=== PATIENT | female | born 1965 | race Caucasian/White ===

== ENCOUNTER 2024-11-30 12:44 | Inpatient (IN) | payer MEDICARE, MEDICAID, SELFPAY ==
[2024-11-30] VITALS (9 sets, daily range): BP systolic 93–126; BP diastolic 50–74; PULSE 92–112; RESP 19–79; TEMP 36.9–39.1; O2SAT 61–99; BMI 21.7; BMI 23.1
--- NOTE | 2024-11-30 13:03 | PD.EDAMS ---
Altered Mental Status RME/HPI General Chief Complaint: Altered Mental Status Stated Complaint: AMS Time Seen by Provider: 11/30/24 13:06 Arrival date/time: 11/30/24 12:44 Limitations: no limitations RME / HPI RME / HPI narrative: DR. ROGEL MAIN ED EVALUATION: 58-year-old female with a history of diabetes and thyroid disease presents to the Emergency Department with complaint of 2 to 3-day history of altered mental status. Patient has history of left sided weakness which is not new and has not gotten worsen. The patient was started on a Z-Blake and promethazine for cough and her oxygen today was slightly low. Per EMS the patient had low O2 sat and route around 60% Patient normally can open her eyes. The history is been taken from the para operator and commander internal affairs of the house. MD complaint: altered mental status Onset (ago): day(s) (3) Timing confirmed by: caregiver and other Consistency of symptoms: waxing and waning Context: other (Patient having flulike symptoms 1 week ago.) Associated symptoms: cough, malaise, nausea/vomiting and weakness Treatments prior to arrival: other (Z-Blake a week ago) Related Data Home Medications ?Medication ?Instructions ?Recorded ?Confirmed ASPIRIN (ASA 81MG EC) 81 mg PO DAILY ##0 11/12/13 10/28/23 divalproex 250 mg tablet,delayed 250 mg PO BID #0 tabs 11/12/13 10/28/23 release (Depakote) docusate sodium 250 mg capsule 250 mg PO QDAY ##0 11/12/13 10/28/23 (DSS) oxybutynin chloride 5 mg tablet 5 mg PO QDAY ##0 11/12/13 10/28/23 potassium chloride 8 mEq 8 meq PO QDAY #0 tabs 11/12/13 10/28/23 tablet,extended release (Klor-Con) lactulose 10 gram/15 mL oral 30 gm PO TID PRN CONSTIPATION 30 11/15/13 10/28/23 solution (Enulose) days ##0 polyethylene glycol 3350 17 gram 1 pkt PO QDAY ##0 02/17/17 10/28/23 oral powder packet (Miralax) cholecalciferol (vitamin D3) 50 50 mcg PO QDAY 10/28/23 10/28/23 mcg (2,000 unit) capsule (Vitamin D3) diclofenac sodium 1 % topical gel 1 ea topical QDAY 10/28/23 10/28/23 docusate sodium 100 mg capsule 100 mg PO QDAY 10/28/23 10/28/23 lactulose 10 gram/15 mL oral 15 ml PO QDAY 10/28/23 10/28/23 solution levothyroxine 88 mcg tablet 88 mcg PO QDAY 10/28/23 10/28/23 lithium carbonate 300 mg capsule 300 mg PO QDAY 10/28/23 10/28/23 metformin 500 mg tablet 500 mg PO QDAY 10/28/23 10/28/23 Allergies Allergy/AdvReac Type Severity Reaction Status Date / Time tetracycline Allergy Unknown Verified 10/28/23 12:52 ibuprofen AdvReac Unknown Verified 10/28/23 12:52 Review of Systems Review of Systems ROS Unobtainable: unobtainable due to medical condition (See HPI) Past Medical History Past Medical History NEUROLOGIC: Positive Neurological Disorders (developmental delay); Negative Seizures CARDIAC: Negative Congestive Heart Failure RESPIRATORY: Negative Chronic Obstructive Pulmonary Disease (COPD) GASTROINTESTINAL: Positive Gastrointestinal Disorders (severe constipation) GENITOURINARY: Negative Genitourinary Disorders or Renal Disease MUSCULOSKELETAL: Positive Musculoskeletal Disorders (defomity of lower extremities) ENDOCRINE: Positive Hypothyroidism; Negative Diabetes Mellitus Type 1 or Diabetes Mellitus Type 2 HEMATOLOGIC: Negative Blood Disorders OTHER HISTORY: Positive Developmental Delay; Negative Blood Transfusions, Anesthesia Reactions or Cancer Social History SMOKING STATUS: Unknown if ever smoked SUBSTANCE USE: does not use ALCOHOL: Never ED Exam Narrative Physical exam: Patient lying in the bed, appears ill General Limitations: Present no limitations General appearance: Present alert and other (Response to deep stimuli) Head Head exam: Present atraumatic, normocephalic and normal inspection Eye Eye exam: Present normal appearance and EOMI; Absent scleral icterus ENT ENT exam: Present normal exam and normal oropharynx Neck Neck exam: Present normal inspection, full ROM and trachea midline Respiratory Respiratory exam: Present other Abdominal Exam Abdominal exam: Present soft; Absent distention, tenderness or guarding Abdominal tenderness: Absent diffuse Extremities Exam Extremities exam: Present other (No mottling.) Neurological Exam Neurological exam: Present other (Alert to self) Skin Skin exam: Present warm and diaphoresis; Absent rash or cyanosis Course Quality Measures none Orders Category Date Time Status Bedside COVID-19 Antigen Test NOW Care 11/30/24 15:13 Active Bedside Influenza A&B Antigen Test NOW Care 11/30/24 15:13 Completed COVID-19 Screening Questionnaire NOW Care 11/30/24 16:05 Active Living Supervisor STAT Care 11/30/24 13:09 Active Continuous Pulse Oximetry STAT Care 11/30/24 13:09 Completed Decision to Admit X1 Care 11/30/24 16:05 Completed EKG (ED ONLY) *Do not use* NOW Care 11/30/24 13:09 Completed In and Out Catheter X1PRN Care 11/30/24 13:09 Completed Insert IV NOW Care 11/30/24 13:09 Active NPO STAT Care 11/30/24 13:09 Active Strict Intake and Output Routine Care 11/30/24 13:[address] head/brain wo con Stat Exams 11/30/24 13:08 Completed EKG (ED Only) Stat Exams 11/30/24 13:09 Draft XR chest 1V SEPSIS PROTOCOL Stat Exams 11/30/24 13:10 Completed B-Type Natriuretic Peptide Stat Lab 11/30/24 13:08 Completed Blood Culture (Lab) Stat Lab 11/30/24 13:08 Received CBC Stat Lab 11/30/24 13:08 Completed Comprehensive Metabolic Panel Stat Lab 11/30/24 13:08 Completed LDH (Lactate Dehydrogenase) Stat Lab 11/30/24 13:08 Completed Lactate (Lactic Acid) Stat Lab 11/30/24 13:08 Completed Lipase Stat Lab 11/30/24 13:08 Completed Magnesium Stat Lab 11/30/24 13:08 Completed Partial Thromboplastin Time Stat Lab 11/30/24 13:08 Completed Phosphorous Stat Lab 11/30/24 13:08 Completed Procalcitonin Stat Lab 11/30/24 13:08 Completed Prothrombin Time with INR Stat Lab 11/30/24 13:08 Completed Troponin I Stat Lab 11/30/24 13:08 Completed Urinalysis Stat Lab 11/30/24 14:20 Completed Urine Culture Stat Lab 11/30/24 14:20 Received ACETAMINOPHEN 120mg SUPP [Tylenol Supp] Med 11/30/24 13:30 Discontinued 650 mg OK X1 ONE Acetaminophen Supp [Tylenol Supp] Med 11/30/24 13:38 Discontinued 650 mg OK X1 ONE Acetaminophen Tab [Tylenol Tab] Med 11/30/24 13:11 Discontinued 650 mg PO X1 ONE Ondansetron Inj [Zofran Inj] Med 11/30/24 13:08 Active 4 mg IV Q6HR PRN Piper/Tazo 3.375 gm [Zosyn] Med 11/30/24 13:08 Discontinued 3.375 gm in 50 ml IV X1 Sodium Chloride 0.9% 1000 ml [Ns] 1,503 ml Med 11/30/24 13:08 Discontinued IV 1,503 mls/hr Oxygen Delivery NOW RT 11/30/24 13:09 Active Vital Signs Vital signs: Vital Signs Temperature 102.3 F H 11/30/24 12:56 Pulse Rate 112 H 11/30/24 12:56 Respiratory Rate 34 H 11/30/24 12:56 Blood Pressure 126/50 L 11/30/24 12:56 Pulse Oximetry (%) 79 L 11/30/24 12:56 Oxygen Delivery Method Room Air 11/30/24 12:56 Procedures -ED EKG Interpretation #1: Date of EK11/30/24 Time of EK:46 Rate: 110 Interpretation: Interpreted by me Additional EKG comment: sinus tachycardia, rate 110, nonspecific ST-T changes, QTc 415 Altered Mental Status MDM Narrative MDM Narrative:: Differential diagnosis includes sepsis, dehydration, electrolyte abnormality, acute or subacute stroke, influenza, viral syndrome, acute on chronic bacterial infection, Depakote elevation. With DKA. UTI. Chest x-ray is obtained for fever and altered mental status. Stephania Carpetner, am scribing for and in the presence of Dr. Rogel. Patient data External records reviewed:: [facility] previous records (Reviewed note by Dr. Curry dated 10/28/23.) Clinical information provided by:: patient Social determinants that could affect healthcare access:: none Patient has the following chronic illnesses:: diabetes and thyroid disease How is presenting disease/condition affected by chronic disease/condition?: exacerbated by Evaluation data The following diagnostics were reviewed and interpreted by me:: lab results, radiology exam(s) and EKG tracing(s) Lab and/or radiology exams considered but not ordered:: none Interpretation Summary: Procedure(s): CT head/brain wo con Accession Number(s): [id number] cc: Brock Oliva MD; Mariaa Rogel MD~ Examination: CT brain head without contrast. 2-D sagittal coronal reconstructions Date and time of exam:November 30, 2024 1436 hours INDICATIONS: Altered mental status beginning 3 days ago CTDI: vol (mGy):47.4 DLP: (mGycm):957 Technique: Multiple CT axial sections of the brain have been obtained, 5 mm slice thickness. Contrast has not been administered. 2-D sagittal, coronal reconstructions have been obtained Low dose protocols were performed. One or more of the following dose reduction techniques were used; automated exposure control, adjustment of the mA and/or KV according to patient size, use of iterative reconstruction technique. Findings: Moderate ventricular enlargement. Intra-axial or extra-axial hemorrhage density is not seen. No mass effect or midline shift Basal cisterns are not remarkable. Fourth ventricle is midline. Cranial vault intact. Significant maxillary ethmoid sinusitis Impression: Negative for acute hemorrhage, mass effect or midline shift Advise clinical correlation and follow-up accordingly. Dictated By: Brock Oliva MD Procedure(s): XR chest 1V SEPSIS PROTOCOL Accession Number(s): [id number] cc: Brock Oliva MD; Mariaa Rogel MD~ Examination: AP chest single view TECHNIQUE: AP portable semiupright chest single view Exam date and time: 13/04/2025 1355 hours INDICATIONS: Sepsis protocol FINDINGS: Significant left perihilar pneumonia Normal heart size Right lung clear IMPRESSION: Significant left perihilar pneumonia Dictated By: Brock Oliva MD Medications / Prescriptions Medications or Prescriptions considered but not ordered:: none Medication administrations:: Medication Administration History Acetaminophen (Acetaminophen 325 Mg Tablet) 1,000 mg PO Q6H PRN PRN Reason: PAIN SCALE 1-3 (mild Stop: 12/30/24 16:44 Aspirin (Aspirin Ec 81 Mg Tabec) 81 mg PO QDAY SINA Stop: 12/31/24 08:59 Dextrose (Dextrose 50%-Water Inj 50 Ml Syringe) 25 ml IV Q15MIN PRN PRN Reason: BG 50-70 responsive npo pt Stop: 12/30/24 17:20 Dextrose (Dextrose 50%-Water Inj 50 Ml Syringe) 50 ml IV Q15MIN PRN PRN Reason: BG <50 OR BG <70 & pt unresponsive Stop: 12/30/24 17:20 Dextrose (Dextrose 50%-Water Inj 50 Ml Syringe) 25 ml IV Q15MIN PRN PRN Reason: BG 50-70 responsive npo pt Stop: 12/30/24 17:36 Dextrose (Dextrose 50%-Water Inj 50 Ml Syringe) 50 ml IV Q15MIN PRN PRN Reason: BG <50 OR BG <70 & pt unresponsive Stop: 12/30/24 17:36 Divalproex Sodium (Divalproex Sod Er 250 Mg Ashley (Non-Formulary)) 1,500 mg PO HS SINA Stop: 12/30/24 20:59 Docusate Sodium (Docusate Sod 100 Mg Capsule) 100 mg PO QDAY SINA; Protocol Stop: 12/31/24 08:59 Glucagon (Glucagon Inj 1 Mg Vial) 1 mg IM Q15MIN PRN PRN Reason: BG <70, and no IV access Glucagon (Glucagon Inj 1 Mg Vial) 1 mg IM Q15MIN PRN PRN Reason: BG <70, and no IV access Guaifenesin/Dextromethorphan (Guaifenesin/Dm Tablet) 1 each PO QDAY SINA Stop: 12/31/24 08:59 Heparin Sodium (Porcine) (Heparin Sod Inj 5000 Unit/Ml Vial) 5,000 unit SC Q12H SINA Stop: 12/14/24 16:44 Ceftriaxone Sodium/Dextrose (Rocephin/D5w 1gm Iv Premix) 50 mls @ 100 mls/hr IV QDAY SINA Stop: 12/07/24 16:59 Last Admin: 11/30/24 17:45 Dose: 100 mls/hr Documented By: JOSIE Azithromycin 250 mg/ Sodium (Chloride) 250 mls @ 250 mls/hr IV QDAY SINA Stop: 12/07/24 16:59 Azithromycin 250 mg/ Sodium (Chloride) 250 mls @ 250 mls/hr IV X1 ONE Stop: 11/30/24 18:14 Insulin Human Lispro (Insulin Lispro (Admelog) 1 Unit/0.01 Ml Unit) 0 unit SC [facility]; Protocol Stop: 12/31/24 07:29 Insulin Human Lispro (Insulin Lispro (Admelog) 1 Unit/0.01 Ml Unit) 0 unit SC [facility]; Protocol Stop: 12/31/24 07:29 Lactulose (Lactulose Syrup 20 Gm/30 Ml Udc) 10 gm PO QDAY [facility]; Protocol Stop: 12/31/24 08:59 Levothyroxine Sodium (Levothyroxine Sodium 88 Mcg Tablet) [facility] Stop: 12/31/24 05:59 Tula Carbonate (Tula Carb 150 Mg Capsule) 300 mg PO [facility] Stop: 12/30/24 20:59 Ondansetron HCl (Ondansetron Inj 2 Mg/Ml Inj 2 Ml) 4 mg IV Q6HR PRN PRN Reason: NAUSEA OR VOMITING Stop: 12/30/24 13:07 Oseltamivir Phosphate (Oseltamivir 75 Mg Capsule) 75 mg PO QDAY SINA Stop: 12/07/24 16:59 Last Admin: 11/30/24 17:39 Dose: 75 mg Documented By: JOSIE Oxybutynin Chloride (Oxybutynin Chlor 5 Mg Tablet) 5 mg PO QDAY SINA Stop: 12/31/24 08:59 Polyethylene Glycol (Polyethylene Glycol 17 Gm Packet) 17 gm PO QDAY SINA Stop: 12/31/24 08:59 Sennosides (Senna Tablet) 1 tab PO QDAY [facility]INA; Protocol Stop: 12/31/24 08:59 Discontinued Medications Acetaminophen (Acetaminophen 325 Mg Tablet) 650 mg PO X1 ONE Stop: 11/30/24 13:12 Last Admin: 11/30/24 13:40 Dose: Not Given Documented By: JOSIE Non-Admin Reason: Cancelled by Provider Acetaminophen (Acetaminophen 120 Mg Supp) 650 mg OK X1 ONE Stop: 11/30/24 13:31 Last Admin: 11/30/24 13:40 Dose: Not Given Documented By: JOSIE Non-Admin Reason: Cancelled by Provider Acetaminophen (Acetaminophen Supp 650 Mg Supp) 650 mg OK X1 ONE Stop: 11/30/24 13:39 Last Admin: 11/30/24 13:45 Dose: 650 mg Documented By: JOSIE Comments: MED NOT SCANNING Guaifenesin/Dextromethorphan (Guaifenesin/Dm Tablet) 1 each PO X1 ONE Stop: 11/30/24 16:51 Sodium Chloride (Ns) 1,503 mls @ 1,503 mls/hr 30 ml/kg infuse over 60 min (1503 ml) IV .Q1H ONE Stop: 11/30/24 14:07 Last Infusion: 11/30/24 17:17 Dose: Infused Documented By: Admin: 11/30/24 14:02 Dose: 1,503 mls/hr Documented By: JOSIE Piperacillin/Tazobactam/Dextrose (Zosyn) 3.375 gm in 50 mls @ 100 mls/hr IV X1 ONE Stop: 11/30/24 13:37 Last Infusion: 11/30/24 14:39 Dose: Infused Documented By: Admin: 11/30/24 14:02 Dose: 100 mls/hr Documented By: JOSIE Sodium Chloride (Sodium Chloride Rt 10% 15 Ml Nebu) 5 ml INH X1 ONE Stop: 11/30/24 16:46 see above Consultations Consultation(s) initiated? (list below): Yes Consultation #1 (Physician, Specialty, Details): Discussed test HPI, PMHx, lab, radiology results and/or management with hospitalist. Will admit for further evaluation and management. Accepts patient for admission. Time: 17:30 Diagnosis Differential diagnosis altered mental status: other (sepsis, dehydration, electrolyte abnormality, acute or subacute stroke, influenza, viral syndrome, acute on chronic bacterial infection, Depakote elevation. With DKA. UTI.) Most likely diagnosis given after review of the tests above:: Sepsis, influenza, hypoxia, bilateral pneumonia Admission Indicated Admission indicated?: indicated Admission Request Was there a request for admission?: Yes Admission Attestation Admission request attestation: Discussed case with [] from Hospitalist service regarding admission. Discussed patients ED course, exam findings, labs, and radiology results. The Hospitalist [agrees,declines] to accept the patient for admission. Disposition Plan Disposition Plan: Admit Critical Care Time Critical Care Time Critical Care Time: Yes Total Critical Care Time (min.): 45 Attestation: The high probability of sudden, clinically significant deterioration in the patient?s condition required the highest level of my preparedness to intervene urgently. The services I provided to this patient were to treat and/or prevent clinically significant deterioration. Services included the following: chart data review, reviewing nursing notes and/or old charts, documentation time, financial analysis consultant collaboration regarding findings and treatment options, medication orders and management, direct patient care, vital sign assessments and ordering, interpreting and reviewing diagnostic studies and lab tests. Aggregate critical care time includes only time during which I was engaged in work directly related to the patient?s care, as described above, whether at bedside or elsewhere in the Emergency Department. It did not include time spent performing other reported procedures or the services of residents, students, nurses or physician assistants. Discharge Plan Plan Patient Disposition: Admit Acute Care w/in Hospital Patient condition on transfer: Stable Problem List Clinical Impression: Sepsis, Influenza, Hypoxia, Bilateral pneumonia
--- NOTE | 2024-11-30 13:08 | XR_ITS ---
Examination: CT brain head without contrast. 2-D sagittal coronal reconstructions Date and time of exam:November 30, 2024 1436 hours INDICATIONS: Altered mental status beginning 3 days ago CTDI: vol (mGy):47.4 DLP: (mGycm):957 Technique: Multiple CT axial sections of the brain have been obtained, 5 mm slice thickness. Contrast has not been administered. 2-D sagittal, coronal reconstructions have been obtained Low dose protocols were performed. One or more of the following dose reduction techniques were used; automated exposure control, adjustment of the mA and/or KV according to patient size, use of iterative reconstruction technique. Findings: Moderate ventricular enlargement. Intra-axial or extra-axial hemorrhage density is not seen. No mass effect or midline shift Basal cisterns are not remarkable. Fourth ventricle is midline. Cranial vault intact. Significant maxillary ethmoid sinusitis Impression: Negative for acute hemorrhage, mass effect or midline shift Advise clinical correlation and follow-up accordingly.
--- NOTE | 2024-11-30 13:09 | EKG_ITS ---
[facility] Test Date: 2024-11-30 Pat Name: PAYAL LATHAM Department: Room: - Gender: Female Leave Coordinator: : 1965 Requested By: Mariaa Crawford Order Number: [id number] Reading MD: Mariaa Crawford Measurements Intervals [place] Rate: 110 P: 60 VT: 167 QRS: 78 QRSD: 84 T: -36 QT: 306 QTc: 415 Interpretive Statements SINUS TACHYCARDIA NONSPECIFIC ST & T-WAVE ABNORMALITY No previous ECG available for comparison /store/S0/[id number]/ecg/[id number].pdf
--- NOTE | 2024-11-30 13:10 | XR_ITS ---
Examination: AP chest single view TECHNIQUE: AP portable semiupright chest single view Exam date and time: 13/04/2025 1355 hours INDICATIONS: Sepsis protocol FINDINGS: Significant left perihilar pneumonia Normal heart size Right lung clear IMPRESSION: Significant left perihilar pneumonia
[2024-11-30 13:28] LABS: Lactate (Lactic Acid) 1.7 mMol/L (0.4-2.0)
[2024-11-30 13:30] LABS: Basophils % (Auto) 0 % (0-2.5); Eosinophils % (Auto) 0 % (0-10); Hematocrit 37.9 % (36.0-46.0); Immature Granulocytes % (Auto) 1 % (0-0); Immature Granulocytes Auto 0.06 Thou/mm3 (0.00-0.00); Lymphocytes % (Auto) 12 % (10-50); Mean Corpuscular HGB Conc 34.3 g/dl (31.0-37.0); Mean Corpuscular Hemoglobin 29.1 pg (25.0-35.0); Mean Corpuscular Volume 85 fL (80-100); Monocytes # (Auto) 0.9 Thou/mm3 (0.0-0.8); Monocytes % (Auto) 11 % (0-12); Neutrophils # (Auto) 6.4 Thou/mm3 (1.8-7.7); Neutrophils % (Auto) 76 % (37-80); Nucleated Red Blood Cell % 0 /100 WBC (0); Platelet Count 87 Thou/mm3 (140-440); RDW Standard Deviation 40.8 fL (36.4-46.3); Red Blood Count 4.46 Miln/mm3 (4.00-5.20); White Blood Count 8.4 Thou/mm3 (3.6-11.0)
[2024-11-30 13:43] LABS: INR 1.2 (0.9-1.3); Partial Thromboplastin Time 27.6 Seconds (22.0-36.0); Prothrombin Time 13.3 Seconds (9.0-12.2)
[2024-11-30] MEDS: ACETAMINOPHEN SUPP 650 MG SUPP PR (13:45)
[2024-11-30 13:48] LABS: B-Type Natriuretic Peptide 42 pg/mL (0-100)
[2024-11-30 13:56] LABS: Alanine Aminotransferase 29 U/L (10-49); Albumin/Globulin Ratio 1.3 (1.2-2.2); Alkaline Phosphatase 73 U/L (46-116); Anion Gap 9 (7-16); Aspartate Amino Transferase 70 U/L (0-34); BUN/Creatinine Ratio 23 Ratio (12-20); Bilirubin,Total 0.6 mg/dL (0.3-1.2); Blood Urea Nitrogen 25 mg/dL (9-23); Calcium 9.7 mg/dL (8.3-10.6); Calcium (Corrected) 9.7 mg/dL (8.5-10.1); Chloride 107 mMol/L (98-107); Creatinine (Component) 1.1 mg/dL (0.6-1.3); Estimated Creatinine Clearance 45.2 mL/min (>60); Globulin 3.2 gm/dL (2.3-3.5); Glucose 242 mg/dL (74-106); LDH (Lactate Dehydrogenase) 348 U/L (120-246); Lipase 41 U/L (12-53); Magnesium 1.8 mg/dL (1.6-2.6); Osmolality,Calculated 293 (275-295); Phosphorous 3.7 mg/dL (2.4-5.1); Potassium 5.2 mMol/L (3.4-5.1); Procalcitonin 1.36 ng/ml (0.0-0.49); Sodium 141 mMol/L (136-145); Total Protein 7.2 gm/dL (5.7-8.2); Troponin I < 0.020 ng/mL (0.0-0.045); eGFR 59 See Note
[2024-11-30] MEDS: SODIUM CHLORIDE 0.9% 1000 ML 1,503 ML 1503 ML IV (14:02)
[2024-11-30] MEDS: PIPER/TAZO 3.375 GM 3.375 GM/50 ML BAG IV (14:02)
[2024-11-30 14:49] LABS: Collection Type, Urine Catheter
[2024-11-30 15:04] LABS: Bilirubin,Urine Negative (Negative); Blood,Urine 1+ (Negative); Clarity,Urine Clear (Clear/Hazy); Color,Urine Yellow (Lt Yel-Yel); Glucose, Urine 3+ (Negative); Ketones,Urine 1+ (Negative); Leukocyte Esterase,Urine Positive (Negative); Nitrite,Urine Negative (Negative); Protein,Urine 1+ (Neg - Trace); RBC,Urine 16 /hpf (0-3); Specific Gravity,Urine 1.025 (1.001-1.035); Squamous Epithelial Cell,Urine 9 /hpf (0-5); WBC,Urine 10 /hpf (0-5)
--- NOTE | 2024-11-30 17:02 | PD.RESHP ---
Documentation for date of: 11/30/24 HPI History of Present Illness History of present illness: HPI is limited and most of history was obtained through pressure tester operator as patient is poor historian Alvina is a 58 y/o female with a PMHx of intellectual disability, DM2, bipolar disorder, constipation, urinary retention who is here for evaluation of shortness of breath with associated cough and fevers onset 2 days ago. Per pressure tester operator, patient started to feel the symptoms about 2 days ago as she lives in a senior care. She says that on Wednesday she began to have these symptoms and had went to her PCP who gave her promethazine and azithromycin. Patient was unable to take the promethazine as they did not want to be sleepy off the medicine and patient continued to take the azithromycin but patient continued to worsen in which she decided to come to the ER. They had said that at the senior care they noticed she began to desaturate, unsure of what level of oxygen saturation, however they decided for her to get further evaluation. She does say she has sick contacts as a lot of her people that she lives with are sick. She has never been hospitalized before for any infections. She has denied any recent travel as well. They also report taking some other [id number] stuff but that did not help her infection. Denies having a history of COPD or any heart problems. Has a bowel movement every 3 to 4 days. ED course: Patient arrive to the ED with a temperature of 102.3, heart rate of 108, respiratory rate of 34, and was saturating around 60% upon arrival and was put on oxy mask 10 L. Patient was worked up and was found to have a sodium of 141, potassium 5.2, BUN/creatinine of 25 and 1.1, white count of 8.4, hemoglobin 13, Pro-Júnior 1.36, lipase of 41, magnesium 1.8, AST ALT 70 and 29 respectively, urinalysis showed leukocyte esterase, no nitrates, however 10 white blood cells. Sepsis alert was called for patient. Patient was given Tylenol ~2g and 1.5 L bolus in addition to Zosyn x 1. Medicine was consulted and patient was admitted to floors. PMHx: As above Surgeries: No known surgeries Allergies: Ibuprofen Meds: Aspirin, Depakote, Synthroid, lithium, metformin, oxybutynin, potassium, vitamin D3, senna, Colace, MiraLAX, lactulose, Tylenol Family history: Family history is limited as patient is unable to provide this information nor is pressure tester operator able to provide this information Social: Has been in [place] for the past 20 years. Lives in a shelter. Does not exercise. No smoking or drug use history. Has an occasional beer. Has all her meals in the senior care. Review of Systems Review of Systems Narrative Review of Systems: ROS is limited as patient is unable to express and is poor historian. Exam Vital Signs Temp Pulse Resp BP Pulse Ox O2 Del Method O2 Flow Rate 100.2 F 108 H 22 H 121/74 91 L Oxy Mask 2 11/30/24 14:44 11/30/24 14:44 11/30/24 14:44 11/30/24 14:44 11/30/24 14:44 11/30/24 14:44 11/30/24 14:44 Narrative Exam General: AAOx2, NAD, patient is happy, has some form of intellectual disability, blackish weaver hair HEENT: Dry mucous membranes, conjunctiva clear, EOMI, PERRLA, poor dentition, has eyes closed Cardiovascular: S1, S2, radial pulses +2 bilat, tachycardic Pulmonary: Sound like there is significant present secretions, no wheezing, cough was not present at the time GI: Bowel sounds present, seems a bit distended Extremities: No presence of trace or pitting edema in lower extremities bilaterally, dorsalis pedis pulses +2 bilaterally, some unkempt toenails, various stages of some dermatitis or possible bruising in the legs and parts of arms Neuro: AAOx2, Results: Labs 12/01/24 04:27 12/01/24 04:27 Labs: Short CBC 11/30/24 Range/Units 13:08 WBC 8.4 (3.6-11.0) Thou/mm3 Hgb 13.0 (12.0-16.0) g/dL Hct 37.9 (36.0-46.0) % Plt Count 87 L (140-440) Thou/mm3 BMP 11/30/24 13:08 Sodium 141 Potassium 5.2 H Chloride 107 Carbon Dioxide 25.0 BUN 25 H Creatinine 1.1 Glucose 242 H Calcium 9.7 Cardiac Enzymes 11/30/24 Range/Units 13:08 Troponin I < 0.020 (0.0-0.045) ng/mL Liver Function 11/30/24 Range/Units 13:08 Total Bilirubin 0.6 (0.3-1.2) mg/dL AST 70 H (0-34) U/L ALT 29 (10-49) U/L Alkaline Phosphatase 73 (46-116) U/L Albumin 4.0 (3.5-5.0) gm/dL Urine 11/30/24 Range/Units 14:20 Urine Color Yellow (Lt Yel-Yel) Urine Clarity Clear (Clear/Hazy) Urine pH 6.0 (5.0-7.0) Ur Specific [place] 1.025 (1.001-1.035) Urine Protein 1+ A (Neg - Trace) Urine Glucose (UA) 3+ A (Negative) Quality Measures Quality Measures none Medications Home Medications and Allergies Home Medications ?Medication ?Instructions ?Recorded ?Confirmed ?Type ASPIRIN (ASA 81MG EC) 81 mg PO DAILY ##0 11/12/13 10/28/23 History divalproex 250 mg tablet,delayed 250 mg PO BID #0 tabs 11/12/13 10/28/23 History release (Depakote) docusate sodium 250 mg capsule 250 mg PO QDAY ##0 11/12/13 10/28/23 History (DSS) oxybutynin chloride 5 mg tablet 5 mg PO QDAY ##0 11/12/13 10/28/23 History potassium chloride 8 mEq 8 meq PO QDAY #0 tabs 11/12/13 10/28/23 History tablet,extended release (Klor-Con) lactulose 10 gram/15 mL oral 30 gm PO TID PRN CONSTIPATION 30 11/15/13 10/28/23 History solution (Enulose) days ##0 polyethylene glycol 3350 17 gram 1 pkt PO QDAY ##0 02/17/17 10/28/23 History oral powder packet (Miralax) cholecalciferol (vitamin D3) 50 50 mcg PO QDAY 10/28/23 10/28/23 History mcg (2,000 unit) capsule (Vitamin D3) diclofenac sodium 1 % topical gel 1 ea topical QDAY 10/28/23 10/28/23 History docusate sodium 100 mg capsule 100 mg PO QDAY 10/28/23 10/28/23 History lactulose 10 gram/15 mL oral 15 ml PO QDAY 10/28/23 10/28/23 History solution levothyroxine 88 mcg tablet 88 mcg PO QDAY 10/28/23 10/28/23 History lithium carbonate 300 mg capsule 300 mg PO QDAY 10/28/23 10/28/23 History metformin 500 mg tablet 500 mg PO QDAY 10/28/23 10/28/23 History Allergies Allergy/AdvReac Type Severity Reaction Status Date / Time tetracycline Allergy Unknown Verified 10/28/23 12:52 ibuprofen AdvReac Unknown Verified 10/28/23 12:52 Visit Medications Ondansetron HCl (Ondansetron Inj 2 Mg/Ml Inj 2 Ml) 4 mg IV Q6HR PRN PRN Reason: NAUSEA OR VOMITING Stop: 12/30/24 13:07 Discontinued Medications Acetaminophen (Acetaminophen 325 Mg Tablet) 650 mg PO X1 ONE Stop: 11/30/24 13:12 Last Admin: 11/30/24 13:40 Dose: Not Given Acetaminophen (Acetaminophen 120 Mg Supp) 650 mg [place] X1 ONE Stop: 11/30/24 13:31 Last Admin: 11/30/24 13:40 Dose: Not Given Acetaminophen (Acetaminophen Supp 650 Mg Supp) 650 mg [place] X1 ONE Stop: 11/30/24 13:39 Last Admin: 11/30/24 13:45 Dose: 650 mg Sodium Chloride (Ns) 1,503 mls @ 1,503 mls/hr 30 ml/kg infuse over 60 min (1503 ml) IV .Q1H ONE Stop: 11/30/24 14:07 Last Admin: 11/30/24 14:02 Dose: 1,503 mls/hr Piperacillin/Tazobactam/Dextrose (Zosyn) 3.375 gm in 50 mls @ 100 mls/hr IV X1 ONE Stop: 11/30/24 13:37 Last Infusion: 11/30/24 14:39 Dose: Infused Assessment & Plan Plan Assessment Alvina is a 58 y/o female with a PMHx of intellectual disability, DM2, bipolar disorder, constipation, urinary retention who is admitted for acute hypoxic respiratory failure 2/2 influenza pneumonia. #Acute hypoxic respiratory failure #Sepsis secondary to #Influenza A pneumonia #? Superimposed bacterial infection #UTI Patient began having symptoms 2 days ago, and has worsened since Patient has not improved with azithromycin Patient has not taken Tamiflu Patient desaturated up to the 60s However is improving with oxygenation status Patient did not have a white count, however Pro-Júnior was elevated 1.36; lactic acid 1.7 Patient will continue to be treated was given roughly 2 g of Tylenol and 1 dose of Zosyn in the ER Urine did show leukocyte esterase and white cells Patient received 1.5 L bolus in ER Plan: ? Follow-up blood cultures ? Follow-up urine culture ? Tylenol for fever ? Rocephin 1 g IV daily, azithromycin 250 g IV daily ? Tamiflu 75 mg by mouth daily ? Chest physiotherapy ? Mucinex ? Airborne precautions #History of type 2 diabetes, [id number] Plan: ? Follow-up A1c ? Hypoglycemic protocol in place ? Blood glucose checks with meals ? Sliding scale insulin #Chronic constipation #Urinary retention Plan: ? Resumed home oxybutynin 5 mg ? Resumed home bowel regimen including MiraLAX, lactulose, Colace #Health Maintenance Disposition: Med telemetry DVT prophylaxis: Heparin every 12 h GI prophylaxis: None indicated at this time Diet: Carb consistent low CODE STATUS: Full Patient seen and care discussed with my senior resident, Dr. Martinez, and my attending physician, Dr. Rodney Allison, PGY-1 Attending Provider Attestation/Addendum I reviewed labs, imaging, EKG, home medications and prior available records. Face to face evaluation was performed by me. I have personally examined the patient and discussed assessment and plan with the IM team. I reviewed the resident note and agree with the plan with exceptions as below. Acute hypoxic respiratory failure Community-acquired pneumonia Acute encephalopathy Influenza A Developmental delay Uncontrolled diabetes mellitus with hyperglycemia, type II Hypothyroidism Oxygen as needed Started IV ceftriaxone/azithromycin Started Tamiflu Started insulin therapy. Monitor fingersticks Resumed home levothyroxine. Sent TSH
[2024-11-30] MEDS: OSELTAMIVIR 75 MG CAPSULE PO (17:39)
[2024-11-30] MEDS: cefTRIAXone/D5w 1gm IV premix 50 ML IV (17:45)
[2024-11-30] MEDS: AZITHROMYCIN INJ 250 MG in SODIUM CHLORIDE 0.9% 250 ML 250 ML IV (19:00)
--- NOTE | 2024-11-30 20:06 | PC.RT ---
attempted to collect sputum sample, pt unable.
--- NOTE | 2024-11-30 20:06 | PC.NURSE ---
SPOKE TO RESIDENT REGARDING PATIENTS LEFT ARM SWELLING, INABILITY TO LIFT ARM, AND COMPLAINT OF PAIN. RESIDENT STATED HE WOULD WORK IT UP.
[2024-11-30] MEDS: DIVALPROEX SOD ER 250 MG TABER (NON-FORMULARY) 1500 MG PO (21:16)
[2024-11-30] MEDS: guaiFENesin/DM TABLET 1 EACH PO (21:16)
[2024-11-30] MEDS: LITHIUM CARB 150 MG CAPSULE 300 MG PO (21:16)
--- NOTE | 2024-11-30 22:00 | XR_ITS ---
Examination: Humerus 2 views left Technique: Humerus, AP lateral 2 views Date and time of exam: November 30, 2024 1020 hrs. Indications: Onset abdominal pain today. Findings: No fracture No foreign body No cortical bone destruction Impression: No fracture Standard 3 view shoulder series would best assess for shoulder dislocation
--- NOTE | 2024-11-30 22:00 | XR_ITS ---
Examination: Forearm, left, 2 views. Technique: Forearm, AP, lateral 2 views Date and time of exam: November 30, 2024 1020 hrs. Indications: Left forearm pain today Findings: Nonstandard views No fracture No foreign body Impression: No fracture
[2024-12-01] VITALS (8 sets, daily range): BP systolic 97–113; BP diastolic 62–74; PULSE 71–98; RESP 16–22; TEMP 35.7–37; O2SAT 93–96; BMI 12.0
[2024-12-01] MEDS: LEVOTHYROXINE SODIUM 88 MCG TABLET PO (05:13)
[2024-12-01 05:43] LABS: Basophils % (Auto) 0 % (0-2.5); Eosinophils % (Auto) 0 % (0-10); Hematocrit 34.1 % (36.0-46.0); Hemoglobin 11.1 g/dL (12.0-16.0); Immature Granulocytes % (Auto) 1 % (0-0); Immature Granulocytes Auto 0.03 Thou/mm3 (0.00-0.00); Lymphocytes # (Auto) 1.1 Thou/mm3 (1.0-4.8); Lymphocytes % (Auto) 20 % (10-50); Mean Corpuscular HGB Conc 32.6 g/dl (31.0-37.0); Mean Corpuscular Hemoglobin 28.8 pg (25.0-35.0); Mean Corpuscular Volume 88 fL (80-100); Monocytes # (Auto) 0.5 Thou/mm3 (0.0-0.8); Monocytes % (Auto) 9 % (0-12); Neutrophils % (Auto) 70 % (37-80); Nucleated Red Blood Cell % 0 /100 WBC (0); Platelet Count 85 Thou/mm3 (140-440); RDW Standard Deviation 43.4 fL (36.4-46.3); Red Blood Count 3.86 Miln/mm3 (4.00-5.20); White Blood Count 5.6 Thou/mm3 (3.6-11.0)
[2024-12-01 05:52] LABS: Glucose Estimated Average 148 mg/dL (80-131); Hemoglobin A1C 6.8 % Hgb (4.8-6.0)
[2024-12-01 06:01] LABS: INR 1.1 (0.9-1.3); Partial Thromboplastin Time 26.8 Seconds (22.0-36.0); Prothrombin Time 12.3 Seconds (9.0-12.2)
[2024-12-01 06:39] LABS: Alanine Aminotransferase 22 U/L (10-49); Albumin, Serum 3.5 gm/dL (3.5-5.0); Albumin/Globulin Ratio 1.4 (1.2-2.2); Alkaline Phosphatase 61 U/L (46-116); Anion Gap 5 (7-16); Aspartate Amino Transferase 46 U/L (0-34); BUN/Creatinine Ratio 31 Ratio (12-20); Bilirubin,Total 0.3 mg/dL (0.3-1.2); Blood Urea Nitrogen 25 mg/dL (9-23); Calcium 9.1 mg/dL (8.3-10.6); Calcium (Corrected) 9.5 mg/dL (8.5-10.1); Cardiac Risk Estimate 5.6 RATIO (3.7-5.6); Chloride 109 mMol/L (98-107); Cholesterol 111 mg/dL (132-200); Creatinine (Component) 0.8 mg/dL (0.6-1.3); Estimated Creatinine Clearance 62.1 mL/min (>60); Globulin 2.5 gm/dL (2.3-3.5); Glucose 163 mg/dL (74-106); HDL Cholesterol 20 mg/dL (40-60); LDL Cholesterol,Calculated 49 mg/dL (0-130); Magnesium 1.8 mg/dL (1.6-2.6); Osmolality,Calculated 291 (275-295); Phosphorous 2.9 mg/dL (2.4-5.1); Potassium 4.5 mMol/L (3.4-5.1); Sodium 142 mMol/L (136-145); Thyroid Stimulating Hormone 2.63 uIU/mL (0.55-4.78); Triglycerides 210 mg/dL (30-150); eGFR > 60 See Note
[2024-12-01] MEDS: INSULIN LISPRO (AdmeLOG) 1 UNIT/0.01 ML UNIT SC ×2 (08:15→17:30)
[2024-12-01] MEDS: LACTULOSE SYRUP 20 GM/30 ML UDC 10 GM PO (08:16)
[2024-12-01] MEDS: DOCUSATE SOD 100 MG CAPSULE PO (08:16)
[2024-12-01] MEDS: guaiFENesin/DM TABLET 1 EACH PO (08:16)
[2024-12-01] MEDS: OXYBUTYNIN CHLOR 5 MG TABLET PO (08:16)
[2024-12-01] MEDS: cefTRIAXone/D5w 1gm IV premix 50 ML IV (08:17)
[2024-12-01] MEDS: POLYETHYLENE GLYCOL 17 GM PACKET PO (08:17)
[2024-12-01] MEDS: OSELTAMIVIR 75 MG CAPSULE PO (08:24)
[2024-12-01] MEDS: ASPIRIN EC 81 MG TABEC PO (08:24)
[2024-12-01] MEDS: SENNA TABLET 1 TAB PO (08:24)
[2024-12-01 08:58] LABS: Iron 26 mcg/dL (50-170); Percent Iron Saturation 11 % (20-55); Total Iron Binding Capacity 228 mcg/dL (250-425); Unsaturated Iron Binding 202 (225-295)
[2024-12-01] MEDS: AZITHROMYCIN INJ 250 MG in SODIUM CHLORIDE 0.9% 250 ML 250 ML IV (09:21)
--- NOTE | 2024-12-01 09:48 | PC.SS ---
Patient is alert. Devel. delayed. SS spoke to Ay[facility]. 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 She confirmed that patient is a rn long term care resident at their home. She is ambulatory. Patient has 24 hour care at the [facility]. No family involved. Patient needs assistance with all ADLs. Patient does not possess any DME. Patient attends a day program M- and [facility] provides transportation. Patient has braces that she uses for her knee. [facility] provides transportation for patient via medivan or private vehicle. Patient follows at [facility] and sees Dr. Solorio. Last appt. was last week. Discharge plan is to return to [facility].
[2024-12-01] MEDS: Magnesium Sulfate 2 GM Ivpb 2 GM/50 ML BAG IV (10:59)
--- NOTE | 2024-12-01 15:20 | PD.RESPRO ---
Documentation for date of: 12/01/24 Subjective Subjective Interval history: Patient was seen and examined at bedside. No acute overnight events. Patient reports no complaints and is feeling fine. Caregiver at the bedside reports patient is having a lot of secretions. Cultures are pending. Will continue current management with ceftriaxone, azithromycin, Tamiflu and will monitor patient. Exam Vital Signs Temp Pulse Resp BP Pulse Ox O2 Del Method O2 Flow Rate 97.1 F 78 19 97/67 94 L Nasal Cannula 2 12/01/24 12:00 12/01/24 12:12/01/24 12:12/01/24 12:12/01/24 12:12/01/24 12:12/01/24 12:00 Narrative Exam Gen: Well-nourished female. HEENT: NCAT, PERRLA, EOMI, MMM, anicteric conjunctivae. CVS: normal S1 and S2. RRR. No M/R/G. Resp: Coarse breath features B/L. No rhonchi, rales, crackles or wheezing. Abd: soft, non-tender, non-distended. BS+ in all 4 quadrants. MSK: Good ROM in BUE & BLE. No edema or rash. Neuro: CN II-XII grossly intact. Strength 5/5 in BUE & BLE. Alert and oriented x2. Objective Labs 12/02/24 04:27 12/02/24 04:27 Labs: Laboratory Results - last 24 hr 12/01/24 12/01/24 04:27 04:29 WBC 5.6 RBC 3.86 L Hgb 11.1 L Hct 34.1 L MCV 88 MCH 28.8 MCHC 32.6 RDW Std Deviation 43.4 Plt Count 85 L Neut % (Auto) 70 Lymph % (Auto) 20 Wood % (Auto) 9 Eos % (Auto) 0 Baso % (Auto) 0 Neut # (Auto) 4.0 Lymph # (Auto) 1.1 Wood # (Auto) 0.5 Eos # (Auto) 0.0 Baso # (Auto) 0.0 Immature Gran # (Auto) 0.03 H Absolute Nucleated RBC 0.00 Immature Gran % 1 H Nucleated RBC % 0 PT 12.3 H INR 1.1 APTT 26.8 Sodium 142 Potassium 4.5 D Chloride 109 H Carbon Dioxide 28.0 Anion Gap 5 L BUN 25 H Creatinine 0.8 Estim Creat Clear Calc 62.1 eGFR > 60 BUN/Creatinine Ratio 31 H Glucose [address] Glu mg/dL 148 H Hemoglobin A1c 6.8 H Calculated Osmolality 291 Calcium 9.1 Corrected Calcium 9.5 Phosphorus 2.9 Magnesium 1.8 Iron 26 L TIBC 228 L Iron Saturation 11 L Unsat Iron Binding 202 L Total Bilirubin 0.3 AST 46 H ALT 22 Alkaline Phosphatase 61 Total Protein 6.0 Albumin 3.5 D Globulin 2.5 Albumin/Globulin Ratio 1.4 Triglycerides 210 H Cholesterol 111 L LDL Cholesterol, Calc 49 HDL Cholesterol 20 L Cholesterol/HDL Ratio 5.6 TSH 2.63 Quality Measures Quality Measures none Assessment & Plan Assessment Current Active Medications: Generic Name Dose Route Start Last Admin Trade Name Freq PRN Reason Stop Dose Admin Acetaminophen 1,000 mg 11/30/24 16:45 Acetaminophen 325 Mg Tablet PO 12/30/24 16:44 Q6H PRN PAIN SCALE 1-3 (mild Aspirin 81 mg 12/01/24 09:00 12/01/24 08:24 Aspirin Ec 81 Mg Tabec PO 12/31/24 08:59 81 mg QDAY SINA Administration Dextrose 25 ml 11/30/24 17:21 Dextrose 50%-Water Inj 50 Ml Syringe IV 12/30/24 17:20 Q15MIN PRN BG 50-70 responsive npo pt Dextrose 50 ml 11/30/24 17:21 Dextrose 50%-Water Inj 50 Ml Syringe IV 12/30/24 17:20 Q15MIN PRN BG <50 OR BG <70 & pt unresponsive Divalproex Sodium 1,500 mg 11/30/24 21:00 11/30/24 21:16 Divalproex Sod Er 250 Mg Ashley (Non-Formulary) PO 12/30/24 20:59 1,500 mg HS SINA Administration Docusate Sodium 100 mg 12/01/24 09:00 12/01/24 08:16 Docusate Sod 100 Mg Capsule PO 12/31/24 08:59 100 mg QDAY SINA Administration Protocol Glucagon 1 mg 11/30/24 17:21 Glucagon Inj 1 Mg Vial IM Q15MIN PRN BG <70, and no IV access Glucagon 1 mg 11/30/24 17:37 Glucagon Inj 1 Mg Vial IM Q15MIN PRN BG <70, and no IV access Guaifenesin/Dextromethorphan 1 each 12/01/24 09:00 12/01/24 08:16 Guaifenesin/Dm Tablet PO 12/31/24 08:59 1 each QDAY SINA Administration Heparin Sodium (Porcine) 5,000 unit 11/30/24 16:45 12/01/24 04:03 Heparin Sod Inj 5000 Unit/Ml Vial SC 12/14/24 16:44 Not Given Q12H SINA Ceftriaxone Sodium/Dextrose 50 mls @ 100 mls/hr 11/30/24 17:00 12/01/24 08:47 Rocephin/D5w 1gm Iv Premix IV 12/07/24 16:59 Infused QDAY SINA Infusion Azithromycin 250 mg/ Sodium 250 mls @ 250 mls/hr 12/01/24 09:00 12/01/24 10:21 Chloride IV 12/08/24 08:59 Infused QDAY SINA Infusion Insulin Human Lispro 0 unit 12/01/24 07:30 12/01/24 11:57 Insulin Lispro (Admelog) 1 Unit/0.01 Ml Unit SC 12/31/24 07:29 Not Given AC SINA Protocol Lactulose 10 gm 12/01/24 09:00 12/01/24 08:16 Lactulose Syrup 20 Gm/30 Ml Udc PO 12/31/24 08:59 10 gm QDAY SINA Administration Protocol Levothyroxine Sodium 88 mcg 12/01/24 06:00 12/01/24 05:13 Levothyroxine Sodium 88 Mcg Tablet PO 12/31/24 05:59 88 mcg ACBR SINA Administration [place] Carbonate 300 mg 11/30/24 21:00 11/30/24 21:16 [place] Carb 150 Mg Capsule PO 12/30/24 20:59 300 mg HS SINA Administration Ondansetron HCl 4 mg 11/30/24 13:08 Ondansetron Inj 2 Mg/Ml Inj 2 Ml IV 12/30/24 13:07 Q6HR PRN NAUSEA OR VOMITING Oseltamivir Phosphate 75 mg 11/30/24 17:00 12/01/24 08:24 Oseltamivir 75 Mg Capsule PO 12/07/24 16:59 75 mg QDAY SINA Administration Oxybutynin Chloride 5 mg 12/01/24 09:00 12/01/24 08:16 Oxybutynin Chlor 5 Mg Tablet PO 12/31/24 08:59 5 mg QDAY SINA Administration Polyethylene Glycol 17 gm 12/01/24 09:00 12/01/24 08:17 Polyethylene Glycol 17 Gm Packet PO 12/31/24 08:59 17 gm QDAY SINA Administration Sennosides 1 tab 12/01/24 09:00 12/01/24 08:24 Senna Tablet PO 12/31/24 08:59 1 tab QDAY SINA Administration Protocol Plan Ms. Tinsley is a 58 y/o female with a PMHx of intellectual disability, DM2, bipolar disorder, constipation, urinary retention who is admitted for acute hypoxic respiratory failure 2/2 influenza pneumonia. #Acute hypoxic respiratory failure #Sepsis secondary to #Influenza A pneumonia #? Superimposed bacterial infection #UTI Patient began having symptoms 2 days ago, and has worsened since Patient has not improved with azithromycin Patient has not taken Tamiflu Patient desaturated up to the 60s However is improving with oxygenation status Patient did not have a white count, however Pro-Júnior was elevated 1.36; lactic acid 1.7 Patient will continue to be treated was given roughly 2 g of Tylenol and 1 dose of Zosyn in the ER Urine did show leukocyte esterase and white cells Patient received 1.5 L bolus in ER Plan: ? Follow-up blood cultures ? Follow-up urine culture ? Tylenol for fever ? Rocephin 1 g IV daily, azithromycin 250 g IV daily ? Tamiflu 75 mg by mouth daily ? Chest physiotherapy ? Mucinex ? Airborne precautions #History of type 2 diabetes, [id number] Plan: ? Follow-up A1c ? Hypoglycemic protocol in place ? Blood glucose checks with meals ? Sliding scale insulin #Chronic constipation #Urinary retention Plan: ? Resumed home oxybutynin 5 mg ? Resumed home bowel regimen including MiraLAX, lactulose, Colace Health Maintenance: Disposition: Med telemetry DVT prophylaxis: Heparin every 12 h GI prophylaxis: None indicated at this time Diet: Carb consistent low CODE STATUS: Full Plan of care discussed with attending Dr. Stevens. Robert Larsen MD, PGY 2. Disclaimer: This note was dictated by speech recognition. Minor errors in early childhood education worker may be present due to voice recognition software. Attending Provider Attestation/Addendum I reviewed labs, imaging, EKG, home medications and prior available records. Face to face evaluation was performed by me. I have personally examined the patient and discussed assessment and plan with the IM team. I reviewed the resident note and agree with the plan with exceptions as below. Acute hypoxic respiratory failure Community-acquired pneumonia Acute encephalopathy Influenza A Developmental delay Uncontrolled diabetes mellitus with hyperglycemia, type II Hypothyroidism Oxygen as needed Started IV ceftriaxone/azithromycin Started Tamiflu Started insulin therapy. Monitor fingersticks Resumed home levothyroxine.
[2024-12-01] MEDS: DIVALPROEX SOD ER 250 MG TABER (NON-FORMULARY) 1500 MG PO (20:44)
[2024-12-01] MEDS: LITHIUM CARB 150 MG CAPSULE 300 MG PO (20:45)
[2024-12-02] VITALS (7 sets, daily range): BP systolic 110–125; BP diastolic 56–75; PULSE 18–88; RESP 15–21; TEMP 36.2–36.5; O2SAT 92–97
[2024-12-02] MEDS: LEVOTHYROXINE SODIUM 88 MCG TABLET PO (05:23)
[2024-12-02 05:51] LABS: Basophils % (Auto) 0 % (0-2.5); Eosinophils % (Auto) 1 % (0-10); Hematocrit 29.7 % (36.0-46.0); Hemoglobin 9.9 g/dL (12.0-16.0); Immature Granulocytes % (Auto) 1 % (0-0); Immature Granulocytes Auto 0.02 Thou/mm3 (0.00-0.00); Lymphocytes # (Auto) 1.3 Thou/mm3 (1.0-4.8); Lymphocytes % (Auto) 32 % (10-50); Mean Corpuscular HGB Conc 33.3 g/dl (31.0-37.0); Mean Corpuscular Hemoglobin 29.3 pg (25.0-35.0); Mean Corpuscular Volume 88 fL (80-100); Monocytes # (Auto) 0.3 Thou/mm3 (0.0-0.8); Monocytes % (Auto) 8 % (0-12); Neutrophils # (Auto) 2.5 Thou/mm3 (1.8-7.7); Neutrophils % (Auto) 59 % (37-80); Nucleated Red Blood Cell % 0 /100 WBC (0); RDW Standard Deviation 41.9 fL (36.4-46.3); Red Blood Count 3.38 Miln/mm3 (4.00-5.20); White Blood Count 4.2 Thou/mm3 (3.6-11.0)
[2024-12-02 05:53] LABS: Platelet Count 77 Thou/mm3 (140-440); Slide Review Platelets confirmed
[2024-12-02 06:01] LABS: INR 1.1 (0.9-1.3); Prothrombin Time 11.8 Seconds (9.0-12.2)
[2024-12-02 06:14] LABS: Alanine Aminotransferase 25 U/L (10-49); Albumin, Serum 3.1 gm/dL (3.5-5.0); Albumin/Globulin Ratio 1.3 (1.2-2.2); Alkaline Phosphatase 58 U/L (46-116); Anion Gap 6 (7-16); Aspartate Amino Transferase 53 U/L (0-34); BUN/Creatinine Ratio 34 Ratio (12-20); Bilirubin,Total 0.3 mg/dL (0.3-1.2); Blood Urea Nitrogen 24 mg/dL (9-23); Calcium 8.7 mg/dL (8.3-10.6); Calcium (Corrected) 9.4 mg/dL (8.5-10.1); Carbon Dioxide 27.4 mMol/L (20.0-31.0); Chloride 111 mMol/L (98-107); Creatinine (Component) 0.7 mg/dL (0.6-1.3); Globulin 2.3 gm/dL (2.3-3.5); Glucose 126 mg/dL (74-106); Magnesium 1.9 mg/dL (1.6-2.6); Osmolality,Calculated 292 (275-295); Phosphorous 3.5 mg/dL (2.4-5.1); Potassium 4.5 mMol/L (3.4-5.1); Sodium 144 mMol/L (136-145); Total Protein 5.4 gm/dL (5.7-8.2); eGFR > 60 See Note
[2024-12-02] MEDS: cefTRIAXone/D5w 1gm IV premix 50 ML IV (10:01)
[2024-12-02] MEDS: AZITHROMYCIN INJ 250 MG in SODIUM CHLORIDE 0.9% 250 ML 250 ML IV (10:01)
[2024-12-02] MEDS: DOCUSATE SOD 100 MG CAPSULE PO (10:12)
[2024-12-02] MEDS: OXYBUTYNIN CHLOR 5 MG TABLET PO (10:13)
[2024-12-02] MEDS: POLYETHYLENE GLYCOL 17 GM PACKET PO (10:13)
[2024-12-02] MEDS: OSELTAMIVIR 75 MG CAPSULE PO (10:13)
[2024-12-02] MEDS: SENNA TABLET 1 TAB PO (10:14)
[2024-12-02] MEDS: ASPIRIN EC 81 MG TABEC PO (10:14)
[2024-12-02] MEDS: guaiFENesin/DM TABLET 1 EACH PO (10:15)
[2024-12-02] MEDS: LACTULOSE SYRUP 20 GM/30 ML UDC 10 GM PO (10:15)
--- NOTE | 2024-12-02 11:13 | ESDS_ITS ---
Planned Discharge Date 12/02/24 DS: Providers Provider Date of admission: 11/30/24 16:41 Primary care physician: Davon Solorio MD Admitting Provider: Saroj Stevens MD Attending Provider on Admission: Saroj Stevens MD Consults: 11/30/24 20:56 Health [facility] Referral - Knowledge Deficit Routine Comment: Positive screening for knowledge deficit needs. 12/01/24 08:00 Referral Physical Therapy Routine Comment: Physician Instructions: Attending Provider on DC: Saroj Stevens MD Discharging Provider: Saroj Stevens MD DS: Diagnosis Problem List Completed Was Problem List Reviewed/Reconciled?: Yes Hospital Course Hospital Course Hospital course: Alvina is a 58 y/o female with a PMHx of intellectual disability, DM2, bipolar disorder, constipation, urinary retention who was admitted on 11/30/2024 to [facility] for AHFR secondary to influenza pneumonia and superimposed bacterial infection. Patient arrived to the ED with a temperature of 102.3, heart rate of 108, respiratory rate of 34, and was saturating around 60% upon arrival and was put on oxy mask 10 L. Patient was worked up and was found to have a sodium of 141, potassium 5.2, BUN/creatinine of 25 and 1.1, white count of 8.4, hemoglobin 13, Pro-Júnior 1.36, lipase of 41, magnesium 1.8, AST ALT 70 and 29 respectively, urinalysis showed leukocyte esterase, no nitrates, however 10 white blood cells. Sepsis alert was called for patient. Patient was given Tylenol ~2g and 1.5 L bolus in addition to Zosyn x 1. Medicine was consulted and patient was admitted to floors. While on the floors, pt had infectious workup in which was negative at the time. Pt continued with rocephin, zithromax and tamiflu while in the hospital. Pt improved and oxygen requirements resolved and pt improved. She also developed bacterial conjunctivitis in R eye in which pt will be discharged with antibiotic eye drops and we recommend warm compresses as well. She will continue with some abx and tamiflu upon d/c and pt will return back to her senior living. Patient came in and found to have 2 or more SIRS criteria and was evaluated for sepsis. However, based upon further work-up, sepsis was ruled out. Take Tamiflu capsules for two more days Take Amoxicillin tablets for four more days Take Azithromycin tablets for 2 more days Apply gentamicin eye drops to R eye every four hours for seven days in addition to warm compresses Take medicines as prescribed Follow up with PCP within one week Return to ER if symptoms worsen or return #Acute hypoxic respiratory failure #Sepsis, ruled out #Influenza A pneumonia #Superimposed bacterial infection #Bacterial conjunctivitis #UTI #History of type 2 diabetes, [id number] #hx of Chronic constipation #hx of Urinary retention Patient seen and care discussed with my senior resident, Dr. Larsen , and my attending physician, Dr. Rodney Allison, PGY-1 Time Spent with Patient Time attestation: Total time spent providing and/or coordinating discharge services: Time spent: Greater than 30 minutes Exam Vital Signs Temp Pulse Resp BP Pulse Ox O2 Del Method O2 Flow Rate 97.7 F 69 21 H 114/61 94 L Nasal Cannula 2 12/02/24 08:00 12/02/24 11:00 12/02/24 11:00 12/02/24 08:00 12/02/24 11:00 12/02/24 08:00 12/02/24 08:00 Narrative Exam General: AAOx2, NAD, patient is happy, has some form of intellectual disability, blackish weaver hair HEENT: moist mucous membranes, R sclera and conjunctivitis erythematous, some possible pus on upper eyelash , EOMI, PERRLA, poor dentition, has eyes closed Cardiovascular: S1, S2, radial pulses +2 bilat, tachycardic Pulmonary: Sound like there is significant present secretions, no wheezing, cough was not present at the time GI: Bowel sounds present, seems a bit distended Extremities: No presence of trace or pitting edema in lower extremities bilaterally, dorsalis pedis pulses +2 bilaterally, some unkempt toenails, variou s stages of some dermatitis or possible bruising in the legs and parts of arms Neuro: AAOx2, Discharge Plan Plan Patient Disposition: HOME (Self Care) Patient condition on transfer: Stable Prescriptions/Referrals Prescriptions/Med Rec: New amoxicillin 875 mg tablet 875 mg PO BID 4 Days Qty: 8 0RF oseltamivir [Tamiflu] 75 mg capsule 75 mg PO QDAY 2 Days Qty: 2 0RF azithromycin [Zithromax] 250 mg tablet 250 mg PO QDAY 2 Days Qty: 2 0RF Rx Instructions: start on day 2 of therapy gentamicin 0.3 % drops 1 drp ophthalmic (eye) Q4H Qty: 5 0RF Rx Instructions: Applyone drop to R eye every four hours Continued ASPIRIN (ASA 81MG EC) 81 MG TABLET, ENTERIC COATED 81 mg PO DAILY Qty: 0 divalproex [Depakote] 250 MG tablet,delayed release (DR/EC) 250 mg PO BID Qty: 0 potassium chloride [Klor-Con 8] 8 MEQ tablet extended release 8 meq PO QDAY Qty: 0 docusate sodium [DSS] 250 MG capsule 250 mg PO QDAY Qty: 0 oxybutynin chloride 5 MG tablet 5 mg PO QDAY Qty: 0 lactulose [Enulose] 10 G/15 ML solution 30 gm PO TID PRN (Reason: CONSTIPATION) 30 Days Qty: 0 polyethylene glycol 3350 [Miralax] 12 EA powder in packet 1 pkt PO QDAY Qty: 0 metformin 500 mg tablet 500 mg PO QDAY levothyroxine 88 mcg tablet 88 mcg PO QDAY lithium carbonate 300 mg capsule 300 mg PO QDAY docusate sodium 100 mg capsule 100 mg PO QDAY lactulose 10 gram/15 mL solution 15 ml PO QDAY cholecalciferol (vitamin D3) [Vitamin D3] 50 mcg (2,000 unit) capsule 50 mcg PO QDAY diclofenac sodium 1 % gel 1 ea TOPICAL QDAY Referrals: Davon Solorio MD [Primary Care Provider] - Patient/Caregiver Discharge Instructions Other Discharge Activity Instructions:: Take Tamiflu capsules for two more days Take Amoxicillin tablets for four more days Take Azithromycin tablets for 2 more days Apply gentamicin eye drops to R eye every four hours for seven days in addition to warm compresses Take medicines as prescribed Follow up with PCP within one week Return to ER if symptoms worsen or return Print Language: Central African Stand Alone Forms: Rosanna Award Info., Patient Portal Info Letter Discharge Order Discharge Orders: Discharge (Routine); Ordered 12/02/24 Ordered By: Satya Allison Quality Discharge Quality Measures VTE prophylaxis (Heparin) Attestestation Attestation I reviewed labs, imaging, EKG, home medications and prior available records. Face to face evaluation was performed by me. I have personally examined the patient and discussed assessment and plan with the IM team. I reviewed the resident note and agree with the plan with exceptions as below. Acute hypoxic respiratory failure Community-acquired pneumonia Acute encephalopathy Influenza A Developmental delay Uncontrolled diabetes mellitus with hyperglycemia, type II Hypothyroidism Bacterial conjunctivitis Oxygen as needed Will discharge on amoxicillin and azithromycin Continue Tamiflu Resume home metformin Resumed home levothyroxine. Gentamicin drops every 4 hours for 7 days Time spent is 40 minutes. More than 50% of the time was spent on patient education and coordination of care.
[2024-12-02] MEDS: INSULIN LISPRO (AdmeLOG) 1 UNIT/0.01 ML UNIT SC (11:57)
--- NOTE | 2024-12-02 12:51 | PC.SS ---
Print Washer (TADEO) Saira contacted [facility]Sanitation Worker [employer], Shaista to discuss discharge plan. Per Shaista, staff can come pick patient at 1500. Shaista requested a packet to return with discharge summary, plan and instructions. TADEO notified bedside RNKapil.
--- NOTE | 2024-12-02 15:25 | PC.NURSE ---
Medications given with RN instructor Stacey, verified with primary nurse lizbeth beckett. Per primary nurse okay to give stool softeners and aspirin.
--- NOTE | 2024-12-02 15:45 | PC.NURSE ---
Discharge reviewed with care provider transferring pt radha cao on. Copy of dc packet given to radha.
== END 2024-12-02 15:36 | disposition home or self-care (01) | DRG 193 ==
LOC: SERX 17:33 → SERHOLD 17:36 → S3SX 20:32
PROVIDERS: Student in an Organized Health Care Education/Training Program; Admitting Provider Student in an Organized Health Care Education/Training Program; Emergency Provider Emergency Medicine; PCP Family Medicine; Visit Provider Student in an Organized Health Care Education/Training Program
DX: J10.01 Influenza due to other identified influenza virus with the same other identified influenza virus pneumonia (principal); J96.01 Acute respiratory failure with hypoxia; N39.0 Urinary tract infection, site not specified; G93.49 Other encephalopathy; E11.65 Type 2 diabetes mellitus with hyperglycemia; F31.9 Bipolar disorder, unspecified; F79 Unspecified intellectual disabilities; K59.09 Other constipation; R62.50 Unspecified lack of expected normal physiological development in childhood; E03.9 Hypothyroidism, unspecified; H10.89 Other conjunctivitis; Z88.0 Allergy status to penicillin; Z79.84 Long term (current) use of oral hypoglycemic drugs; Z79.899 Other long term (current) drug therapy; Z88.6 Allergy status to analgesic agent
CPT/HCPCS: 36415; 70450; 71045; 73060; 73090; 80053; 80061; 81001; 83036; 83540; 83550; 83605; 83615; 83690; 83735; 83880; 84100; 84145; 84443; 84484; 85025; 85610; 85730; 87040; 87081; 87086; 87400; 87811; 93225; J0456; J0696; J1815; J2543; J3475; J7030; J7050; A9270

== ENCOUNTER 2025-03-29 09:02 | Emergency (ER) | payer MEDICARE, MEDICAID, SELFPAY ==
[2025-03-29 09:17] VITALS: PULSE 74; RESP 18; BMI 23.8
[2025-03-29 09:25] VITALS: BP 121/77; PULSE 75; RESP 18; TEMP 37.1; O2SAT 99
--- NOTE | 2025-03-29 09:37 | PD.EDADULT ---
ED General RME/HPI General Chief complaint: Altered Mental Status Stated complaint: AMS Time Seen by Provider: 03/29/25 09:31 Arrival date/time: 03/29/25 09:02 RME / HPI RME / HPI narrative: DR. SZYMANSKI MAIN ED EVALUATION: 59 year old female presents to the Emergency Department [facility] from intermediate with complaint of altered mental status. Per EMS, patient is normally a GCS of 15 and talking. Last well known time was 8 PM yesterday. Per nurse, she was talking to her and then now she is not answering questions but has intent and looks away not to answer. PMHx: Intellectual disability, DM2, bipolar disorder, constipation, urinary retention who was admitted on 11/30/2024 to [facility] for AHFR secondary to influenza pneumonia and superimposed bacterial infection. Related Data Home Medications ?Medication ?Instructions ?Recorded ?Confirmed ASPIRIN (ASA 81MG EC) 81 mg PO DAILY ##0 11/12/13 10/28/23 divalproex 250 mg tablet,delayed 250 mg PO BID #0 tabs 11/12/13 10/28/23 release (Depakote) docusate sodium 250 mg capsule 250 mg PO QDAY ##0 11/12/13 10/28/23 (DSS) oxybutynin chloride 5 mg tablet 5 mg PO QDAY ##0 11/12/13 10/28/23 potassium chloride 8 mEq 8 meq PO QDAY #0 tabs 11/12/13 10/28/23 tablet,extended release (Klor-Con) lactulose 10 gram/15 mL oral 30 gm PO TID PRN CONSTIPATION 30 11/15/13 10/28/23 solution (Enulose) days ##0 polyethylene glycol 3350 17 gram 1 pkt PO QDAY ##0 02/17/17 10/28/23 oral powder packet (Miralax) cholecalciferol (vitamin D3) 50 50 mcg PO QDAY 10/28/23 10/28/23 mcg (2,000 unit) capsule (Vitamin D3) diclofenac sodium 1 % topical gel 1 ea topical QDAY 10/28/23 10/28/23 docusate sodium 100 mg capsule 100 mg PO QDAY 10/28/23 10/28/23 lactulose 10 gram/15 mL oral 15 ml PO QDAY 01/04/24 01/04/24 solution levothyroxine 88 mcg tablet 88 mcg PO QDAY 10/28/23 10/28/23 lithium carbonate 300 mg capsule 300 mg PO QDAY 10/28/23 10/28/23 metformin 500 mg tablet 500 mg PO QDAY 10/28/23 10/28/23 Previous Rx's ?Medication ?Instructions ?Recorded gentamicin 0.3 % eye drops 1 drp ophthalmic (eye) Q4H #5 mL 12/02/24 nitrofurantoin 100 mg PO Q12H 5 days #10 caps 03/29/25 monohydrate/macrocrystals 100 mg capsule (Macrobid) Allergies Allergy/AdvReac Type Severity Reaction Status Date / Time tetracycline Allergy Unknown Verified 10/28/23 12:52 ibuprofen AdvReac Unknown Verified 10/28/23 12:52 Review of Systems Review of Systems Systems Reviewed: All systems reviewed, normal except as documented Past Medical History Past Medical History NEUROLOGIC: Positive Neurological Disorders GASTROINTESTINAL: Positive Gastrointestinal Disorders MUSCULOSKELETAL: Positive Musculoskeletal Disorders ENDOCRINE: Positive Diabetes Mellitus Type 2 and Hypothyroidism OTHER HISTORY: Positive Developmental Delay Social History SMOKING STATUS: Unknown if ever smoked SUBSTANCE USE: does not use ALCOHOL: Never ED Exam Narrative Physical exam: GENERAL APPEARANCE: Per nurse, she was talking to her and then now she is not answering questions but has intent and looks away not to answer. Generally well-appearing, no acute distress. Wears depends. No PEG tube or indwelling Prado in place. HEENT: NC, AT. MMM. EOMI, clear conjunctiva, oropharynx clear. NECK: Supple without lymphadenopathy. No stiffness or restricted ROM. HEART: Normal rate and regular rhythm, normal S1/S1, no m/r/g LUNGS: CTAB, moving air well. No crackles or wheezes are heard. ABDOMEN: Soft, nontender, nondistended with good bowel sounds heard. BACK: No midline C/T/L spine pain or deformity, No CVAT, no obvious deformity. EXTREMITIES: Muscle atrophy. Without cyanosis, clubbing or edema. MUSCULOSKELETAL: FROM of all major joints, no chest tenderness NEUROLOGICAL: Not answering questions, but had intent and looks away. Skin: Warm and dry without any rash. Course Quality Measures none Orders Category Date Time Status EKG (ED ONLY) *Do not use* NOW Care 03/29/25 09:43 Completed In and Out Catheter X1 Care 03/29/25 09:[address] head/brain wo con Stat Exams 03/29/25 09:43 Completed EKG (ED Only) Stat Exams 03/29/25 09:43 Draft XR chest 1V Stat Exams 03/29/25 09:44 Completed Alcohol, Urine Stat Lab 03/29/25 09:54 Completed CBC Stat Lab 03/29/25 10:24 Results CMP [Comprehensive Metabolic Panel] Stat Lab 03/29/25 11:15 Completed Drug Screen,Urine Stat Lab 03/29/25 09:54 Completed Lactate (Lactic Acid) Stat Lab 03/29/25 10:24 Results Procalcitonin Stat Lab 03/29/25 11:15 Completed Troponin I Stat Lab 03/29/25 11:15 Completed Urinalysis Stat Lab 03/29/25 09:54 Completed Sodium Chloride 0.9% 1000 ml [Ns] 1,000 ml Med 03/29/25 09:43 Discontinued IV 999 mls/hr Sodium Chloride 0.9% 500 ml [Ns] 500 ml Med 03/29/25 11:20 Discontinued IV 999 mls/hr cefTRIAXone/D5w 1gm IV premix [Rocephin/D5w 1gm IV Med 03/29/25 11:20 Discontinued premix] 1 gm in 50 ml IV X1 Vital Signs Vital signs: Vital Signs Temperature 98.7 F 03/29/25 09:25 Pulse Rate 75 03/29/25 09:25 Respiratory Rate 18 03/29/25 09:25 Blood Pressure 121/77 03/29/25 09:25 Pulse Oximetry (%) 99 03/29/25 09:25 Oxygen Delivery Method Room Air 03/29/25 09:25 Discharge Plan Plan Patient Disposition: HOME (Self Care) Prescriptions/Referrals Prescriptions/Med Rec: New nitrofurantoin monohyd/m-cryst [Macrobid] 100 mg capsule 100 mg PO Q12H 5 Days Qty: 10 0RF Rx Instructions: must administer with a meal/food No Action ASPIRIN (ASA 81MG EC) 81 MG TABLET, ENTERIC COATED 81 mg PO DAILY Qty: 0 divalproex [Depakote] 250 MG tablet,delayed release (DR/EC) 250 mg PO BID Qty: 0 potassium chloride [Klor-Con 8] 8 MEQ tablet extended release 8 meq PO QDAY Qty: 0 docusate sodium [DSS] 250 MG capsule 250 mg PO QDAY Qty: 0 oxybutynin chloride 5 MG tablet 5 mg PO QDAY Qty: 0 lactulose [Enulose] 10 G/15 ML solution 30 gm PO TID PRN (Reason: CONSTIPATION) 30 Days Qty: 0 polyethylene glycol 3350 [Miralax] 12 EA powder in packet 1 pkt PO QDAY Qty: 0 gentamicin 0.3 % drops 1 drp ophthalmic (eye) Q4H Qty: 5 0RF Rx Instructions: Applyone drop to R eye every four hours metformin 500 mg tablet 500 mg PO QDAY levothyroxine 88 mcg tablet 88 mcg PO QDAY lithium carbonate 300 mg capsule 300 mg PO QDAY docusate sodium 100 mg capsule 100 mg PO QDAY lactulose 10 gram/15 mL solution 15 ml PO QDAY cholecalciferol (vitamin D3) [Vitamin D3] 50 mcg (2,000 unit) capsule 50 mcg PO QDAY diclofenac sodium 1 % gel 1 ea TOPICAL QDAY Referrals: No Primary/Family,Physician [Primary Care Provider] - In 1 week Problem List Clinical Impression: UTI (urinary tract infection), Acute dehydration Patient/Caregiver Discharge Instructions Education Materials: ED Dehydration (Adult), ED CYSTITIS Female Adult Additional Instructions: Take all medicines as prescribed. Drink plenty of fluids for the next 48 hours. Follow-up with your primary care doctor in 2 to 3 days for recheck. You can return to the emergency department sooner if symptoms worsen or if you notice any new, concerning issues. Print Language: Romansh Stand Alone Forms: Rosanna Award Info., Patient Portal Info Letter MDM Narrative [facility] hospital course: I, Stephania Domínguez am scribing for and in the presence of Dr. Szymanski. Clinical Information Provided by EMS Medical Records Reviewed [facility] and EMS Reviewed last admission discharge dated 12/02/24 patient admitted for the following: Bilateral pneumonia. Meds/Rx Considered, not Ordered None Labs/Rad/Tests considered, not Ordered None Chronic Illness/Social Conditions Add or document further as needed: Intellectual disability, DM2, bipolar disorder, constipation, urinary retention who was admitted on 11/30/2024 to [facility] for AHFR secondary to influenza pneumonia and superimposed bacterial infection. EKG Interpretation EKG #1: Date/time of EK03/29/25 1019 hours EKG interpretation: sinus rhythm, rate 74, normal intervals, normal axis, no acute ST-T wave changes. Lab Interpretation Labs: interpreted by az Lab(s) interpretation(s): UTI secondary to dehydration Cultures reviewed and has no past UTI. Imaging Radiology reports / interpretation(s): Procedure(s): CT head/brain wo con Accession Number(s): [id number] cc: Christopher Szymanski MD; Brock Oliva MD; NO PRIMARY/FAMILY,PHYSICIAN~ Examination: CT brain head without contrast. 2-D sagittal coronal reconstructions Date and time of exam:March 29, 2025 1016 hours Comparison November 30, 2024 INDICATIONS: Altered mental status today CTDI: vol (mGy):45.8 DLP: (mGycm):910 Technique: Multiple CT axial sections of the brain have been obtained, 5 mm slice thickness. Contrast has not been administered. 2-D sagittal, coronal reconstructions have been obtained Low dose protocols were performed. One or more of the following dose reduction techniques were used; automated exposure control, adjustment of the mA and/or KV according to patient size, use of iterative reconstruction technique. Findings: Stable mild to moderate ventricular enlargement ventricular enlargement. Intra-axial or extra-axial hemorrhage density is not seen. No mass effect or midline shift Basal cisterns are not remarkable. Fourth ventricle is midline. Cranial vault intact. Retention cyst right maxillary antrum Impression: Negative for acute hemorrhage, mass effect or midline shift Advise clinical correlation and follow-up accordingly Dictated By: Brock Oliva MD Procedure(s): XR chest 1V Accession Number(s): [id number] cc: Christopher Szymanski MD; Brock Oliva MD; NO PRIMARY/FAMILY,PHYSICIAN~ Examination: AP chest single view Technique one AP portable semiupright chest single view Date and time: March 29, 2025 0956 hours Comparison November 30, 2024 INDICATIONS: Weakness fatigue chest pain beginning 2 days ago FINDINGS: Normal heart size Lungs are clear. Moderate osteopenia IMPRESSION:: No active disease Thoracolumbar dextroscoliosis 42 degrees Dictated By: Brock Oliva MD Medication Administration(s) Medication Administration History Discontinued Medications Sodium Chloride (Ns) 1,000 mls @ 999 mls/hr IV .Q1H1M ONE Stop: 03/29/25 10:43 Last Infusion: 03/29/25 12:46 Dose: 0 mls/hr Documented By: Admin: 03/29/25 10:04 Dose: 999 mls/hr Documented By: JOSIE Sodium Chloride (Ns) 500 mls @ 999 mls/hr IV .Q31M ONE Stop: 03/29/25 11:50 Last Infusion: 03/29/25 12:47 Dose: 0 mls/hr Documented By: Admin: 03/29/25 11:41 Dose: 999 mls/hr Documented By: CINTHIA Ceftriaxone Sodium/Dextrose (Rocephin/D5w 1gm Iv Premix) 1 gm in 50 mls @ 100 mls/hr IV X1 ONE Stop: 03/29/25 11:49 Last Infusion: 03/29/25 12:13 Dose: Infused Documented By: Admin: 03/29/25 11:35 Dose: 100 mls/hr Documented By: CINTHIA Diagnosis Differential diagnosis: Dehydration, UTI, TIA, CVA Most likely dx, and/or detailed dx discussion: UTI Acute dehydration Dispositon Disposition: Nursing/Care
--- NOTE | 2025-03-29 09:43 | EKG_ITS ---
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
--- NOTE | 2025-03-29 09:43 | XR_ITS ---
Examination: CT brain head without contrast. 2-D sagittal coronal reconstructions Date and time of exam:March 29, 2025 1016 hours Comparison November 30, 2024 INDICATIONS: Altered mental status today CTDI: vol (mGy):45.8 DLP: (mGycm):910 Technique: Multiple CT axial sections of the brain have been obtained, 5 mm slice thickness. Contrast has not been administered. 2-D sagittal, coronal reconstructions have been obtained Low dose protocols were performed. One or more of the following dose reduction techniques were used; automated exposure control, adjustment of the mA and/or KV according to patient size, use of iterative reconstruction technique. Findings: Stable mild to moderate ventricular enlargement ventricular enlargement. Intra-axial or extra-axial hemorrhage density is not seen. No mass effect or midline shift Basal cisterns are not remarkable. Fourth ventricle is midline. Cranial vault intact. Retention cyst right maxillary antrum Impression: Negative for acute hemorrhage, mass effect or midline shift Advise clinical correlation and follow-up accordingly
--- NOTE | 2025-03-29 09:44 | XR_ITS ---
Examination: AP chest single view Technique one AP portable semiupright chest single view Date and time: March 29, 2025 0956 hours Comparison November 30, 2024 INDICATIONS: Weakness fatigue chest pain beginning 2 days ago FINDINGS: Normal heart size Lungs are clear. Moderate osteopenia IMPRESSION:: No active disease Thoracolumbar dextroscoliosis 42 degrees
[2025-03-29 10:02] LABS: Collection Type, Urine Catheter
[2025-03-29] MEDS: SODIUM CHLORIDE 0.9% 1000 ML 1,000 ML 999 ML IV (10:04)
[2025-03-29 10:20] LABS: Alcohol, Urine Negative (Negative); Amphetamine/Methamp Scrn,U Negative (Negative); Barbiturate Screen,Urine Negative (Negative); Benzodiazepines Screen,Urine Negative (Negative); Benzoylecgonine Screen, Ur Negative (Negative); Fentanyl Screen,Urine Negative (Negative); Opiate Screen,Urine Negative (Negative); THC Screen,Urine Negative (Negative)
[2025-03-29 10:26] LABS: Bacteria,Urine 4+; Bilirubin,Urine Negative (Negative); Blood,Urine 2+ (Negative); Color,Urine Yellow (Lt Yel-Yel); Glucose, Urine Negative (Negative); Hyaline Casts,Urine 1 /hpf (0-1); Ketones,Urine Trace (Negative); Leukocyte Esterase,Urine Positive (Negative); Nitrite,Urine Positive (Negative); PH,Urine 6.5 (5.0-7.0); Protein,Urine 1+ (Neg - Trace); RBC,Urine 21 /hpf (0-3); Specific Gravity,Urine 1.017 (1.001-1.035); Squamous Epithelial Cell,Urine 4 /hpf (0-5); Urobilinogen,Urine Negative mg/dL (0.0-1.0); WBC,Urine 248 /hpf (0-5)
[2025-03-29 10:32] LABS: Clarity,Urine Hazy (Clear/Hazy)
[2025-03-29 10:40] LABS: Lactate (Lactic Acid) 2.3 mMol/L (0.4-2.0)
[2025-03-29 10:55] LABS: Basophils % (Auto) 0 % (0-2.5); Eosinophils # (Auto) 0.1 Thou/mm3 (0.0-0.5); Eosinophils % (Auto) 1 % (0-10); Hematocrit 37.6 % (36.0-46.0); Hemoglobin 13.4 g/dL (12.0-16.0); Immature Granulocytes % (Auto) 0 % (0-0); Immature Granulocytes Auto 0.01 Thou/mm3 (0.00-0.00); Lymphocytes % (Auto) 18 % (10-50); Mean Corpuscular HGB Conc 35.6 g/dl (31.0-37.0); Mean Corpuscular Hemoglobin 29.1 pg (25.0-35.0); Mean Corpuscular Volume 82 fL (80-100); Monocytes # (Auto) 0.5 Thou/mm3 (0.0-0.8); Monocytes % (Auto) 9 % (0-12); Neutrophils # (Auto) 4.1 Thou/mm3 (1.8-7.7); Neutrophils % (Auto) 72 % (37-80); Nucleated Red Blood Cell % 0 /100 WBC (0); RDW Standard Deviation 39.6 fL (36.4-46.3); Red Blood Count 4.61 Miln/mm3 (4.00-5.20); White Blood Count 5.6 Thou/mm3 (3.6-11.0)
[2025-03-29] MEDS: cefTRIAXone/D5w 1gm IV premix 1 GM/50 ML BAG IV (11:35)
[2025-03-29] MEDS: SODIUM CHLORIDE 0.9% 500 ML 500 ML 999 ML IV (11:41)
[2025-03-29 11:42] LABS: Platelet Count 50 Thou/mm3 (140-440)
[2025-03-29 11:56] LABS: Alanine Aminotransferase 45 U/L (10-49); Albumin, Serum 3.5 gm/dL (3.5-5.0); Albumin/Globulin Ratio 1.5 (1.2-2.2); Alkaline Phosphatase 100 U/L (46-116); Anion Gap 9 (7-16); Aspartate Amino Transferase 39 U/L (0-34); BUN/Creatinine Ratio 19 Ratio (12-20); Bilirubin,Total 0.5 mg/dL (0.3-1.2); Blood Urea Nitrogen 13 mg/dL (9-23); Calcium 8.5 mg/dL (8.3-10.6); Calcium (Corrected) 8.9 mg/dL (8.5-10.1); Carbon Dioxide 26.8 mMol/L (20.0-31.0); Chloride 105 mMol/L (98-107); Creatinine (Component) 0.7 mg/dL (0.6-1.3); Estimated Creatinine Clearance 70.1 mL/min (>60); Globulin 2.4 gm/dL (2.3-3.5); Glucose 166 mg/dL (74-106); Osmolality,Calculated 285 (275-295); Potassium 4.2 mMol/L (3.4-5.1); Procalcitonin 0.14 ng/ml (0.0-0.49); Sodium 141 mMol/L (136-145); Total Protein 5.9 gm/dL (5.7-8.2); Troponin I < 0.002 ng/mL (0.0-0.045); eGFR > 60 See Note
--- NOTE | 2025-03-29 11:58 | PC.CC ---
Shireen MACARIO was consulted by informatics application analyst Nelson regarding transportation back to [facility] . ASW made telephone contact with [employer] [facility] [id number].
--- NOTE | 2025-03-29 12:12 | PC.NURSE ---
PT EDUCATED TO KEEP ARM STRAIGHT TO ALLOW FLUIDS TO RUN.
--- NOTE | 2025-03-29 12:16 | PC.NURSE ---
PT EDUCATED TO KEEP ARM STRAIGHT
[2025-03-29 12:35] VITALS: BP 118/75; PULSE 79; RESP 19; TEMP 36.6; O2SAT 98
[2025-03-29 12:59] LABS: Slide Review Platelets confirmed
--- NOTE | 2025-03-29 13:04 | PC.NURSE ---
IV LINE INFILTRATED. SITE WAS COOL TO THE TOUGH WITH SWELLING & SKIN TIGHTNESS. IV CATH REMOVED AND PRESSURE APPLIED. IV CATH INTACT AND NO REDNESS OR SWELLING. CMS INTACT IN LEFY ARM. PT REPORTS NO PAIN OR TINGLING. RIGHT ARM LEFT PULSE IS STRONG. PT MOVED EXTREMITY PASSIVELY
[2025-03-29 13:19] VITALS: BP 134/85; PULSE 67; RESP 16; TEMP 36.4; O2SAT 99
[2025-03-29 13:37] LABS: Reflex Lactate? Y
== END 2025-03-29 15:35 | disposition home or self-care (01) ==
PROVIDERS: Emergency Provider Emergency Medicine
DX: N39.0 Urinary tract infection, site not specified (principal); E86.0 Dehydration; F79 Unspecified intellectual disabilities; F31.9 Bipolar disorder, unspecified; E11.9 Type 2 diabetes mellitus without complications; M41.9 Scoliosis, unspecified; J34.1 Cyst and mucocele of nose and nasal sinus
CPT/HCPCS: 51701; 36415; 70450; 71045; 80053; 80307; 80320; 81001; 83605; 84145; 84484; 85025; 93005; 96361; 96365; 99284; J0696; J7030; J7040; G0480

== ENCOUNTER 2025-03-30 07:48 | Inpatient (IN) | payer MEDICARE, MEDICAID, SELFPAY ==
[2025-03-30] VITALS (10 sets, daily range): BP systolic 100–127; BP diastolic 56–74; PULSE 64–98; RESP 15–22; TEMP 36.7–38.3; O2SAT 89–97; BMI 21.7
--- NOTE | 2025-03-30 | XR_ITS ---
MRI abdomen, without contrast. MRCP Date and time of exam: March 30, 2025, 1542 hours INDICATIONS: Elevated transaminase, elevated bilirubin, fever today Technique: Multiple axial and coronal images of the abdomen have been obtained with the Siemens 1.5T MRI scanner. Images obtained included T1 weighted transverse images, T2-weighted transverse images, T2-weighted transverse images fat-suppressed, T2 weighted haste fat suppressed transverse images, T1 weighted images, in and out of phase images, T2-weighted coronal images, breath hold, T2 weighted haze coronal images as well as T2 weighted coronal thick slab images, MRCP. Findings: Negative for hepatomegaly Gallbladder wall does exhibit mild edema No gallstones depicted Common hepatic, common bile duct are not enlarged, no, bilateral common bile duct stones Liver is irregular in contour Splenomegaly 13 cm No pancreatic edema or dilated pancreatic duct Minimal perinephric stranding Minimal fluid in the abdomen IMPRESSION: Cirrhosis, mild ascites Mild splenomegaly Gallbladder wall does exhibit mild edema, suggest HIDA scan follow-up to confirm cystic duct obstruction No common hepatic common bile duct stones
--- NOTE | 2025-03-30 07:58 | EDNOTE_ITS ---
ED General RME/HPI General Chief complaint: Altered Mental Status Stated complaint: AMS Time Seen by Provider: 03/30/25 07:58 Arrival date/time: 03/30/25 07:48 RME / HPI RME / HPI narrative: DR. SINGH MAIN ED EVALUATION: 59 year old female presents to the Emergency Department [facility] from [facility] with complaints of altered mental status and a fever. Per EMS, patient is normally a GCS of 15 and talking and today she is more confused and not wanting to talk. She was seen yesterday and discharged with an UTI but clinically worse today. Per EMS, BP was 125/84, HR of 95, and satting at 94% on 6 L/min. PMHx: Intellectual disability, DM2, bipolar disorder, constipation, urinary retention who was admitted on 11/30/2024 to [facility] for AHFR secondary to influenza pneumonia and superimposed bacterial infection. Related Data Home Medications ?Medication ?Instructions ?Recorded ?Confirmed ASPIRIN (ASA 81MG EC) 81 mg PO DAILY ##0 11/12/13 10/28/23 divalproex 250 mg tablet,delayed 250 mg PO BID #0 tabs 11/12/13 10/28/23 release (Depakote) docusate sodium 250 mg capsule 250 mg PO QDAY ##0 10/2510/28/23 (DSS) oxybutynin chloride 5 mg tablet 5 mg PO QDAY ##0 11/1210/28/23 potassium chloride 8 mEq 8 meq PO QDAY #0 tabs 10/28/23 tablet,extended release (Klor-Con) lactulose 10 gram/15 mL oral 30 gm PO TID PRN CONSTIPA TION 30 11/15/13 10/28/23 solution (Enulose) days ##0 polyethylene glycol 3350 17 gram 1 pkt PO QDAY ##0 10/28/23 oral powder packet (Miralax) cholecalciferol (vitamin D3) 50 50 mcg PO QDAY 4 10/28/23 mcg (2,000 unit) capsule (Vitamin D3) diclofenac sodium 1 % topical gel 1 ea topical QDAY 10/28/23 docusate sodium 100 mg capsule 100 mg PO QDAY 10/28/23 10/28/23 lactulose 10 gram/15 mL oral 15 ml PO QDAY 10/28/23 solution levothyroxine 88 mcg tablet 88 mcg PO QDAY 10/28/23 lithium carbonate 300 mg capsule 300 mg PO QDAY 10/28/23 metformin 500 mg tablet 500 mg PO QDAY 10/28/2302/15 Previous Rx's ?Medication ?Instructions ?Recorded gentamicin 0.3 % eye drops 1 drp ophthalmic (eye) Q4H #5 mL 12/02/24 nitrofurantoin 100 mg PO Q12H 5 days #10 ca ps 03/29/25 monohydrate/macrocrystals 100 mg capsule (Macrobid) Allergies Allergy/AdvReac Type Severity Reaction Status Date / Time tetracycline Allergy Unknown Verified 10/28/23 12:52 ibuprofen AdvReac Unknown Verified 10/28/23 12:52 Review of Systems Review of Systems ROS Unobtainable: unobtainable due to mental status Past Medical History Past Medical History NEUROLOGIC: Positive Neurological Disorders GASTROINTESTINAL: Positive Gastrointestinal Disorders MUSCULOSKELETAL: Positive Musculoskeletal Disorders ENDOCRINE: Positive Diabetes Mellitus Type 2 and Hypothyroidism OTHER HISTORY: Positive Developmental Delay Social History SMOKING STATUS: Unknown if ever smoked SUBSTANCE USE: does not use ALCOHOL: Never ED Exam Narrative Physical exam: Physical Exam:? General:?? ? Patient is brought in by EMS with obtundation. And altered mental status she gives eye contact minimal verbal is development delay but evidently Dieck creased from her usual mental status. The vital signs were reviewed. The patient appears tired eyes are barely open will shake her head to questions is arousable with minimal verbal and responds to painful stimuli but immediately Patient had a spontaneous respirations that required no assistance at this time . O2 sats are adequate at the present time. Head & Scalp:?? ? Normocephalic, atraumatic. Face:?? ? Appears normal and is without lesions, deformity. No apparent trauma Ears:??? Left external pinna appears normal. Right external pinna appears normal. Eyes:?? ? The sclera is anicteric. The Left and Right Orbit/Lid/Conjunctiva appears normal without swelling, discoloration or injection. Nose: ? ? The nose is without deformity, discharge or tenderness; Throat: ? ? Appears normal.? The mucous membranes are pink and moist without exudates, redness or mass seen.? The tongue appears normal. Neck: The neck is supple and no apparent mass or adenopathy. Chest: The chest wall is normal in size and symmetry and has no chest wall tenderness or crepitus. The patient displays adequate ventilator effort without retractions, accessory muscle use. Patient has adequate air movement bilaterally with no wheezes and no rales. ? Cardiovascular: Regular rate and rhythm; No murmurs, rubs, or gallops; Gastrointestinal: The abdomen appears normal.? No obvious hernias or mass. The abdomen is soft and benign, non-distended, with no pain, no guarding and no rebound tenderness.? Bowel sounds are present and normal sounding.? No CVA tenderness. Genitourinary: No apparent injury or trauma. Back/Spine: No apparent injury or trauma patient was rolled there is no breakdown on her behind back or pelvis area. Extremities/Musculoskeletal/lymphatic:? ? ? The bilateral upper and lower extremities are warm. There is no evidence of arterial? insufficiency. There is no evidence of venous insufficiency/edema. The patient is obtunded but displays no obvious focal deficits and spontaneously moves bilateral upper and lower extremities with painful or verbal stimuli There is no apparent, injury or trauma. Skin:? The skin is warm, dry and intact.? No rashes. No petechia. No purpura. No abnormal bruising.? The color is appropriate with no cyanosis. Mental status/Psychiatric: Mental status is obtunded no further evaluation can be made Neurological:? The patient is awake arouses lethargic interacts but with minimal verbal The pupils are equal and reactive to light No obvious focal deficits. Patient responds to painful and verbal stimuli. Course Quality Measures none Orders Category Date Time Status Bedside Blood Glucose NOW Care 03/30/25 07:59 Active EKG (ED ONLY) *Do not use* NOW Care 03/30/25 07:59 Completed MRI Screening NOW Care 03/30/25 14:[address] head/brain wo con Stat Exams 03/30/25 07:59 Completed EKG (ED Only) Stat Exams 03/30/25 07:59 Draft MR MRCP Stat Exams 03/30/25 Completed XR chest 1V portable Stat Exams 03/30/25 07:59 Completed Alcohol, Blood Medical Stat Lab 03/30/25 08:08 Completed Ammonia Stat Lab 03/30/25 08:08 Completed B-Type Natriuretic Peptide Stat Lab 03/30/25 08:08 Completed Blood Culture (Lab) Stat Lab 03/30/25 08:00 Received CBC Stat Lab 03/30/25 08:08 Completed Comprehensive Metabolic Panel Stat Lab 03/30/25 08:08 Completed Drug Screen,Urine Stat Lab 03/30/25 08:44 Completed Lactate (Lactic Acid) Stat Lab 03/30/25 08:08 Completed Procalcitonin Stat Lab 03/30/25 08:08 Completed Prothrombin Time with INR Stat Lab 03/30/25 08:08 Completed Troponin I Stat Lab 03/30/25 08:08 Completed Type and Screen Stat Lab 03/30/25 08:08 Completed Urinalysis Stat Lab 03/30/25 08:44 Completed Urinalysis, C/S if Indicated Stat Lab 03/30/25 08:44 Completed Urine Culture Stat Lab 03/30/25 08:44 Received Venous Blood Gas Stat Lab 03/30/25 08:08 Completed Piper/Tazo 3.375 gm Premix [Zosyn] Med 03/30/25 07:58 Discontinued 3.375 gm in 50 ml IV X1 Sodium Chloride 0.9% 1000 ml [Ns] 1,000 ml Med 03/30/25 07:58 Discontinued IV 1,000 mls/hr Sodium Chloride 0.9% 1000 ml [Ns] 2,000 ml Med 03/30/25 07:58 Active IV 150 mls/hr Vancomycin Inj 1,000 mg Med 03/30/25 07:58 Discontinued Sodium Chloride 0.9% 250 ml [Ns] 250 ml IV X1 Vancomycin/Ns 1 gm Ivpb 200 ml Med 03/30/25 08:15 Discontinued IV X1 Vital Signs Vital signs: Vital Signs Temperature 101.0 F H 03/30/25 07:54 Pulse Rate 98 03/30/25 07:54 Respiratory Rate 22 H 03/30/25 07:54 Blood Pressure 127/74 03/30/25 07:54 Pulse Oximetry (%) 92 L 03/30/25 07:54 Oxygen Delivery Method Room Air 03/30/25 07:54 Discharge Plan Plan Patient Disposition: Admit Acute Care w/in Hospital Discharge Disposition comment: Hospitalist admit Dr Hopkins to consult Problem List Clinical Impression: Acute cholecystitis, Intractable abdominal pain MDM Narrative [facility] hospital course: I, Stephania Domínguez, am scribing for and in the presence of Dr. Singh. Patient was seen here yesterday worked up found to have a urinary tract infection sent back to her facility but this morning she has a fever altered mental status and is clinically worse and brought back for reevaluation. On arrival she has a fever she is clearly got altered mental status heart rate is 99 sinus tach on the monitor so we will repeat and extend the sepsis workup and be more aggressive with antibiotics upfront as it appears she is clearly worse. Because of concerns for sepsis she got Vanco and Zosyn early. Medical workup was done white count came back at 5.5 hemoglobin is 13.6 platelet count 109,000. PT/INR are within normal limits. Venous blood gas pH is 7.50 chemistries are within normal limits. Glucose 141 lactic acid was 1.5 total bilirubin is elevated of 1.4 baselines were normal previous AST and ALT are both elevated today at 419 and 381. Given baselines normal ammonia is little elevated at 33. BNP and troponin were negative. Urinalysis came back with 234 white blood cells which is similar to yesterday's CT of the head came back negative chest x-ray came back with a left perihilar left basilar infiltrates there is no obvious consolidation or effusion. Patient will need to be admitted but because of the elevated bilirubin and transaminases we need to get an MRI MRCP to rule out choledocholithiasis. Assuming that is negative patient will be admitted here. MRCP came back negative for choledocholithiasis. The patient has recurring pancreatitis hospitalist was called Dr. Salgado at time and they will admit the patient. Clinical Information Provided by EMS Medical Records Reviewed residential Meds/Rx Considered, not Ordered None Labs/Rad/Tests considered, not Ordered None Chronic Illness/Social Conditions Add or document further as needed: Intellectual disability, DM2, bipolar disorder, constipation, urinary retention who was admitted on 11/30/2024 to [facility] for AHFR secondary to influenza pneumonia and superimposed bacterial infection. EKG Interpretation EKG #1: Date/time of EK03/30/25 0805 hours EKG interpretation: sinus rhythm, rate 93, no STEMI Imaging Radiology reports / interpretation(s): Procedure(s): CT head/brain wo con Accession Number(s): [id number] cc: Aj Singh MD; Brock Oliva MD; Yadira Cano MD~ Examination: CT brain head without contrast. 2-D sagittal coronal reconstructions Date and time of exam:March 30, 2025 1117 hours INDICATIONS: Altered mental status today CTDI: vol (mGy):46.5 DLP: (mGycm):928 Technique: Multiple CT axial sections of the brain have been obtained, 5 mm slice thickness. Contrast has not been administered. 2-D sagittal, coronal reconstructions have been obtained Low dose protocols were performed. One or more of the following dose reduction techniques were used; automated exposure control, adjustment of the mA and/or KV according to patient size, use of iterative reconstruction technique. Findings: Mild to moderate ventricular enlargement Intra-axial or extra-axial hemorrhage density is not seen. No mass effect or midline shift Basal cisterns are not remarkable. Fourth ventricle is midline. Cranial vault intact. Impression: Negative for acute hemorrhage, mass effect or midline shift Advise clinical correlation follow-up accordingly Dictated By: Brock Oliva MD Procedure(s): XR chest 1V portable Accession Number(s): [id number] cc: Aj Singh MD; Brock Oliva MD; Yadira Cano MD~ Examination: AP chest single view TECHNIQUE: AP portable upright chest single view Date and time: March 30, 2025 0817 hours INDICATIONS: Acute chest pain today. FINDINGS: Left perihilar left basilar pneumonia. Normal heart size Increased markings at the right lung base Prominent osteopenia IMPRESSION: Left perihilar left basilar pneumonia Dictated By: Brock Oliva MD Procedure(s): MR MRCP Accession Number(s): [id number] cc: Aj Singh MD; Brock Oliva MD; Yadira Cano MD~ MRI abdomen, without contrast. MRCP Date and time of exam: March 30, 2025, 1542 hours INDICATIONS: Elevated transaminase, elevated bilirubin, fever today Technique: Multiple axial and coronal images of the abdomen have been obtained with the Siemens 1.5T MRI scanner. Images obtained included T1 weighted transverse images, T2-weighted transverse images, T2-weighted transverse images fat-suppressed, T2 weighted haste fat suppressed transverse images, T1 weighted images, in and out of phase images, T2-weighted coronal images, breath hold, T2 weighted haze coronal images as well as T2 weighted coronal thick slab images, MRCP. Findings: Negative for hepatomegaly Gallbladder wall does exhibit mild edema No gallstones depicted Common hepatic, common bile duct are not enlarged, no, bilateral common bile duct stones Liver is irregular in contour Splenomegaly 13 cm No pancreatic edema or dilated pancreatic duct Minimal perinephric stranding Minimal fluid in the abdomen IMPRESSION: Cirrhosis, mild ascites Mild splenomegaly Gallbladder wall does exhibit mild edema, suggest HIDA scan follow-up to confirm cystic duct obstruction No common hepatic common bile duct stones Dictated By: Brock Oliva MD Medication Administration(s) Medication Administration History Acetaminophen (Acetaminophen 325 Mg Tablet) 650 mg PO Q6H PRN PRN Reason: PAIN SCALE 1-3 (mild Stop: 04/29/25 17:57 Acetaminophen (Acetaminophen 325 Mg Tablet) 650 mg PO Q6H PRN PRN Reason: Fever >100.4 Stop: 04/29/25 17:57 Albuterol/Ipratropium (Albuterol/Ipratropium (Duoneb) Rt Kirstie 3 Ml Nebu) 3 ml INH Q6HRRT PRN PRN Reason: Wheezing Stop: 04/30/25 00:59 Aspirin (Aspirin Ec 81 Mg Tabec) 81 mg PO DAILY [facility] Stop: 04/29/25 19:29 Azithromycin (Azithromycin 250 Mg Tablet) 250 mg PO QDAY [facility] Stop: 04/05/25 08:59 Dextrose (Dextrose 50%-Water Inj 50 Ml Syringe) 25 ml IV Q15MIN PRN PRN Reason: BG 50-70 responsive npo pt Stop: 04/29/25 19:54 Dextrose (Dextrose 50%-Water Inj 50 Ml Syringe) 50 ml IV Q15MIN PRN PRN Reason: BG <50 OR BG <70 & pt unresponsive Stop: 04/29/25 19:54 Divalproex Sodium (Divalproex Sod Ec 125 Mg Tabec) 250 mg PO BID [facility] Stop: 04/29/25 20:59 Docusate Sodium (Docusate Sod 250 Mg Capsule) 250 mg PO QDAY [facility]; Protocol Stop: 04/29/25 19:29 Glucagon (Glucagon Inj 1 Mg Vial) 1 mg IM Q15MIN PRN PRN Reason: BG <70, and no IV access Heparin Sodium (Porcine) (Heparin Sod Inj 5000 Unit/Ml Vial) 5,000 unit SC BID [facility] Stop: 04/13/25 20:59 Sodium Chloride (Ns) 2,000 mls @ 150 mls/hr IV .[id number] ONE Stop: 03/30/25 21:17 Last Infusion: 03/30/25 17:23 Dose: 150 mls/hr Documented By: Admin: 03/30/25 10:27 Dose: 150 mls/hr Documented By: MYLA Ceftriaxone Sodium/Dextrose (Rocephin/D5w 1gm Iv Premix) 1 gm in 50 mls @ 100 mls/hr IV QDAY [facility] Stop: 04/07/25 08:59 Sodium Chloride (Ns) 1,000 mls @ 70 mls/hr IV .[id number] [facility] Stop: 04/29/25 18:59 Insulin Human Lispro (Insulin Lispro (Admelog) 1 Unit/0.01 Ml Unit) 0 unit SC ACHS [facility]; Protocol Stop: 04/29/25 20:59 Lactulose (Lactulose Syrup 20 Gm/30 Ml Udc) 10 gm PO TID [facility]; Protocol Stop: 04/29/25 21:59 Levothyroxine Sodium (Levothyroxine Sodium 88 Mcg Tablet) 88 mcg PO ACBR [facility] Stop: 04/30/25 05:59 [employer] Carbonate ([employer] Carb 150 Mg Capsule) 300 mg PO QDAY [facility] Stop: 04/30/25 08:59 Ondansetron HCl (Ondansetron Inj 2 Mg/Ml Inj 2 Ml) 4 mg IVP Q6H PRN; Protocol PRN Reason: NAUSEA OR VOMITING Stop: 04/29/25 17:57 Oxybutynin Chloride (Oxybutynin Chlor 5 Mg Tablet) 5 mg PO QDAY [facility] Stop: 04/30/25 08:59 Pantoprazole Sodium (Pantoprazole Inj 40 Mg Vial) 40 mg IVP QDAY [facility] Stop: 04/30/25 08:59 Polyethylene Glycol (Polyethylene Glycol 17 Gm Packet) 17 gm PO QDAY [facility] Stop: 04/30/25 08:59 Discontinued Medications Azithromycin (Azithromycin 250 Mg Tablet) 500 mg PO X1 ONE Stop: 03/30/25 19:24 Last Admin: 03/30/25 20:21 Dose: 500 mg Documented By: AM Vancomycin HCl 1,000 mg/ (Sodium Chloride) 250 mls @ 150 mls/hr IV X1 ONE Stop: 03/30/25 09:37 Last Admin: 03/30/25 09:39 Dose: Not Given Documented By: HIWOT Non-Admin Reason: Discontinued Piperacillin/Tazobactam/Dextrose (Zosyn) 3.375 gm in 50 mls @ 100 mls/hr IV X1 ONE Stop: 03/30/25 08:27 Last Infusion: 03/30/25 09:25 Dose: Infused Documented By: Admin: 03/30/25 08:29 Dose: 100 mls/hr Documented By: MYLA Sodium Chloride (Ns) 1,000 mls @ 1,000 mls/hr IV .Q1H ONE Stop: 03/30/25 08:57 Last Infusion: 03/30/25 10:26 Dose: Infused Documented By: Admin: 03/30/25 08:31 Dose: 1,000 mls/hr Documented By: AA Vancomycin/Sodium Chloride (Vancomycin/Ns 1 Gm Ivpb) 200 mls @ 120 mls/hr IV X1 ONE Stop: 03/30/25 09:54 Last Infusion: 03/30/25 12:03 Dose: Infused Documented By: Admin: 03/30/25 09:28 Dose: 120 mls/hr Documented By: HIWOT Lactulose (Lactulose Syrup 20 Gm/30 Ml Udc) 30 gm PO TID PRN; Protocol PRN Reason: CONSTIPATION Stop: 04/29/25 19:26 Lactulose (Lactulose Syrup 20 Gm/30 Ml Udc) 10 gm PO QDAY [facility]; Protocol Stop: 04/30/25 08:59 Sodium Chloride (Sodium Chloride Rt 10% 15 Ml Nebu) 5 ml INH X1 ONE Stop: 03/30/25 19:41 Last Admin: 03/30/25 20:11 Dose: 5 ml Documented By: INOCENCIA Diagnosis Differential diagnosis: UTI, sepsis, TIA/CVA Most likely dx, and/or detailed dx discussion: Acute cholecystitis Intractable abdominal pain Dispositon Disposition: Admit
--- NOTE | 2025-03-30 07:59 | EKG_ITS ---
[facility] Test Date: 2025-03-30 Pat Name: PAYAL LATHAM Department: Room: - Gender: Female Gauger Chief: : 1965 Requested By: Aj Singh Order Number: [id number] Reading MD: Aj Singh Measurements Intervals [place] Rate: 93 P: 22 DC: 168 QRS: 61 QRSD: 88 T: 36 QT: 336 QTc: 420 Interpretive Statements SINUS RHYTHM LOW QRS VOLTAGE IN PRECORDIAL LEADS [QRS DEFLECTION < 1.0 mV IN CHEST LEADS] NONSPECIFIC T-WAVE ABNORMALITY Compared to ECG 03/29/2025 10:19:17 No significant changes /store/S0/[id number].pdf
[2025-03-30 08:17] LABS: Base Excess, Venous 5 (-3-3); Lactate (Lactic Acid) 1.5 mMol/L (0.4-2.0); O2 Saturation, Venous 98 % (96-97); PCO2, Venous 36 mmHg (36-56); PO2, Venous 79 mmHg (15-58)
[2025-03-30] MEDS: PIPER/TAZO 3.375 GM PREMIX 3.375 GM/50 ML BAG IV (08:29)
[2025-03-30] MEDS: SODIUM CHLORIDE 0.9% 1000 ML 1,000 ML IV (08:31)
[2025-03-30 08:35] LABS: Ammonia 33 uMol/L (11-32); B-Type Natriuretic Peptide 36 pg/mL (0-100)
[2025-03-30 08:38] LABS: INR 1.1 (0.9-1.3); Prothrombin Time 12.2 Seconds (9.0-12.2)
[2025-03-30 08:44] LABS: Basophils % (Auto) 0 % (0-2.5); Eosinophils # (Auto) 0.1 Thou/mm3 (0.0-0.5); Eosinophils % (Auto) 1 % (0-10); Hematocrit 39.8 % (36.0-46.0); Hemoglobin 13.6 g/dL (12.0-16.0); Immature Granulocytes % (Auto) 0 % (0-0); Immature Granulocytes Auto 0.01 Thou/mm3 (0.00-0.00); Lymphocytes # (Auto) 1.1 Thou/mm3 (1.0-4.8); Lymphocytes % (Auto) 20 % (10-50); Mean Corpuscular HGB Conc 34.2 g/dl (31.0-37.0); Mean Corpuscular Hemoglobin 29.1 pg (25.0-35.0); Mean Corpuscular Volume 85 fL (80-100); Monocytes # (Auto) 0.4 Thou/mm3 (0.0-0.8); Monocytes % (Auto) 8 % (0-12); Neutrophils # (Auto) 3.9 Thou/mm3 (1.8-7.7); Neutrophils % (Auto) 71 % (37-80); Nucleated Red Blood Cell % 0 /100 WBC (0); Platelet Count 109 Thou/mm3 (140-440); RDW Standard Deviation 41.5 fL (36.4-46.3); Red Blood Count 4.67 Miln/mm3 (4.00-5.20); White Blood Count 5.5 Thou/mm3 (3.6-11.0)
[2025-03-30 08:52] LABS: Alanine Aminotransferase 381 U/L (10-49); Albumin, Serum 3.7 gm/dL (3.5-5.0); Albumin/Globulin Ratio 1.4 (1.2-2.2); Alcohol, Blood Medical < 3.0 mg/dL (0-10.0); Alkaline Phosphatase 200 U/L (46-116); Anion Gap 10 (7-16); Aspartate Amino Transferase 419 U/L (0-34); BUN/Creatinine Ratio 19 Ratio (12-20); Bilirubin,Total 1.4 mg/dL (0.3-1.2); Blood Urea Nitrogen 17 mg/dL (9-23); Calcium 8.9 mg/dL (8.3-10.6); Calcium (Corrected) 9.1 mg/dL (8.5-10.1); Carbon Dioxide 27.3 mMol/L (20.0-31.0); Chloride 106 mMol/L (98-107); Creatinine (Component) 0.9 mg/dL (0.6-1.3); Estimated Creatinine Clearance 44.5 mL/min (>60); Globulin 2.7 gm/dL (2.3-3.5); Glucose 141 mg/dL (74-106); Osmolality,Calculated 288 (275-295); Potassium 4.7 mMol/L (3.4-5.1); Procalcitonin 0.33 ng/ml (0.0-0.49); Sodium 143 mMol/L (136-145); Total Protein 6.4 gm/dL (5.7-8.2); Troponin I < 0.002 ng/mL (0.0-0.045); eGFR > 60 See Note
[2025-03-30 08:55] LABS: Collection Type, Urine Clean Catch
[2025-03-30 09:11] LABS: Amphetamine/Methamp Scrn,U Negative (Negative); Barbiturate Screen,Urine Negative (Negative); Benzodiazepines Screen,Urine Negative (Negative); Benzoylecgonine Screen, Ur Negative (Negative); Fentanyl Screen,Urine Negative (Negative); Opiate Screen,Urine Negative (Negative); THC Screen,Urine Negative (Negative)
[2025-03-30 09:18] LABS: Bacteria,Urine 2+; Bilirubin,Urine Negative (Negative); Blood,Urine 1+ (Negative); Color,Urine Yellow (Lt Yel-Yel); Glucose, Urine Negative (Negative); Ketones,Urine Trace (Negative); Leukocyte Esterase,Urine Positive (Negative); Nitrite,Urine Positive (Negative); Protein,Urine Trace (Neg - Trace); RBC,Urine 19 /hpf (0-3); Specific Gravity,Urine 1.018 (1.001-1.035); Squamous Epithelial Cell,Urine 1 /hpf (0-5); WBC,Urine 234 /hpf (0-5)
[2025-03-30] MEDS: VANCOMYCIN/NS 1 GM IVPB 200 ML IV (09:28)
[2025-03-30 09:37] LABS: Clarity,Urine Hazy (Clear/Hazy); Culture Indicated,Urine Yes
[2025-03-30] MEDS: SODIUM CHLORIDE 0.9% 1000 ML 2,000 ML 150 ML IV (10:27)
--- NOTE | 2025-03-30 18:00 | PD.RESHP ---
Documentation for date of: 03/30/25 [facility] History of Present Illness History of present illness: This is a 58-year-old female PMHx of Hx of disability, bipolar disorder, T2DM, constipation, urinary retention, recurrent UTI, presenting with acute altered mental status. She is coming from [facility] where she currently resides. History obtained from caregiver at bedside. 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 However this morning found to be decreased mentation, slightly less responsive and found to have a low-grade fever this morning. She was diagnosed with UTI earlier this month, has been on NITROFURANTOIN, presented to ED on 03/29/2025 with symptoms of UTI and was given a dose of GENTAMICIN, and sent home on NITROFURANTOIN which currently taking. Caregiver states she still having dark foul-smelling urine. However patient does not complain of any urinary symptoms. Patient also denies chest pain, headaches, shortness of breath, abdominal pain, N/V/D/C, dysuria or urinary frequency or urgency. She was admitted in November of this year and treated for sepsis secondary to influenza/bacterial pneumonia. Per adult live in caregiver, she had made full recovery since. At baseline, she ambulates with assistance secondary to bilateral lower extremity deformity, usually she can talk incompetency although speech nonfluent, but able to communicate with staff. ED COURSE: T101.0, BP 127/78, HR 98, RR 22, satting 92% on room air. CBC unremarkable except for PLT 109 (baseline 70). Normal coag studies. VBG showed pH 7.5, pCO2 36, PO279. CHEM panel significant for GLUCOSE 144, TB 1.4, AST 419, ALT 381, ALP 200, ammonia 33. Negative troponin, BNP, and Pro-Calc. UA showed UTI with positive LE/nitrite, 19 RBCs, 234 WBCs, 2+ bacteria, 1+ blood. EKG showed sinus rhythm with nonspecific ST changes. Head CT was negative for acute pathology. CXR showed left perihilar and left basal pneumonia. MRCP showed cirrhosis, mild ascites, mild splenomegaly,, no common hepatic or common bile duct stone, recommended HIDA which were ordered. PMHx: As above. PSHx: History abdominal surgery, and left hip repair. MEDS: [ASPIRIN daily, DIVALPROEX 500 mg HS, LEVOTHYROXINE 88 mcg, LITHIUM carbonate 300 mg, METFORMIN 500 mg daily, OXYBUTYNIN 5 mg daily, potassium tablets daily, VITAMIN D3 2000 units daily, DOCUSATE PRN, senna, PRN, MIRALAX PRN, LACTULOSE 10 mg PRN, TYLENOL 325 PRN. ALLERGIES: IBUPROFEN (rash), TETRACYCLINE (rash) FHx: Uknown (history of child abuse) SH: Occasional beer, no drug or tobacco use. Exam Vital Signs Temp Pulse Resp BP Pulse Ox O2 Del Method O2 Flow Rate 96.9 F 70 14 135/33 H 96 Room Air 2 03/31/25 11:52 03/31/25 12:00 03/31/25 11:52 03/31/25 11:52 03/31/25 11:52 03/31/25 11:52 03/30/25 17:22 Narrative Exam Narrative Exam GENERAL Normal appearing adult female, NAD, on nasal cannula. HEENT NCAT. DONNA. Oral mucosa is dry. Patent Nares NECK Supple, nontender, no thyromegaly, no meningismus, no JVD, no step offs CHEST RRR, no m/g/r CTAB, no w/r/r. Symmetrical chest rise. No intercostal subcostal retraction Atraumatic, nontender, no crepitus, symmetrical expansion. ABDOMEN Soft, flat, mildly tender to palpation throughout. No guarding/rebound tenderness/masses. Bowel sounds presents EXTREMITIES No edema/cyanosis. SKIN Warm and dry. Multiple superficial skin rashes throughout, no ulcers or open wounds. NEUROMUSCULAR No lumbar or midline, no CVA, no paraspinal muscle spasm or tenderness. Moves all 4 extremities well, with full ROM and good CSM. No focal neurologic deficits. PSYCHIATRY Normal mood and affect, cooperative, no SI or HI or hallucinations. Results: Labs 04/02/25 07:11 04/02/25 07:11 Labs: Short CBC 03/31/25 Range/Units 05:10 WBC 3.9 (3.6-11.0) Thou/mm3 Hgb 12.0 (12.0-16.0) g/dL Hct 36.4 (36.0-46.0) % Plt Count 90 L (140-440) Thou/mm3 BMP 03/31/25 05:10 Sodium 143 Potassium 4.5 Chloride 108 H Carbon Dioxide 27.0 BUN 13 Creatinine 0.7 Glucose 84 D Calcium 9.2 Liver Function 03/31/25 Range/Units 05:10 Total Bilirubin 0.7 D (0.3-1.2) mg/dL ALT 222 H (10-49) U/L Alkaline Phosphatase 160 H D (46-116) U/L Albumin 3.4 L (3.5-5.0) gm/dL ABG Interpretation ABG results: 03/30/25 08:08 VBG pH 7.50 VBG pCO2 36 VBG pO2 79 H VBG Base Excess 5 H Quality Measures Quality Measures none Medications Home Medications and Allergies Home Medications ?Medication ?Instructions ?Recorded ?Confirmed ?Type ASPIRIN (ASA 81MG EC) 81 mg PO DAILY ##0 11/12/13 04/02/25 History divalproex 250 mg tablet,delayed 250 mg PO BID #0 tabs 11/12/13 04/02/25 History release (Depakote) oxybutynin chloride 5 mg tablet 5 mg PO QDAY ##0 11/12/13 04/02/25 History potassium chloride 8 mEq 8 meq PO QDAY #0 tabs 11/12/13 04/02/25 History tablet,extended release (Klor-Con) lactulose 10 gram/15 mL oral 30 gm PO TID PRN CONSTIPATION 30 11/15/13 04/02/25 History solution (Enulose) days ##0 polyethylene glycol 3350 17 gram 1 pkt PO QDAY ##0 02/17/17 04/02/25 History oral powder packet (Miralax) cholecalciferol (vitamin D3) 50 50 mcg PO QDAY 10/28/23 04/02/25 History mcg (2,000 unit) capsule (Vitamin D3) docusate sodium 100 mg capsule 100 mg PO QDAY 10/28/23 04/02/25 History levothyroxine 88 mcg tablet 88 mcg PO QDAY 10/28/23 04/02/25 History lithium carbonate 300 mg capsule 300 mg PO QDAY 10/28/23 04/02/25 History metformin 500 mg tablet 500 mg PO QDAY 10/28/23 04/02/25 History acetaminophen 325 mg tablet 325 mg PO Q4H PRN pain 04/02/25 04/02/25 History deutetrabenazine 12 mg-18 mg-24 ea PO HS 04/02/25 History mg-30 mg tablet, ER 24 hr dose pack (Austedo XR Titration (Week 1-4)) sennosides 8.6 mg tablet (senna) 8.6 mg PO HS PRN constipation 04/02/25 04/02/25 History Allergies Allergy/AdvReac Type Severity Reaction Status Date / Time tetracycline Allergy Unknown Verified 10/28/23 12:52 ibuprofen AdvReac Unknown Verified 10/28/23 12:52 Visit Medications Acetaminophen (Acetaminophen 325 Mg Tablet) 650 mg PO Q6H PRN PRN Reason: PAIN SCALE 1-3 (mild Stop: 04/29/25 17:57 Acetaminophen (Acetaminophen 325 Mg Tablet) 650 mg PO Q6H PRN PRN Reason: Fever >100.4 Stop: 04/29/25 17:57 Albuterol/Ipratropium (Albuterol/Ipratropium (Duoneb) Rt Kirstie 3 Ml Nebu) 3 ml INH Q6HRRT PRN PRN Reason: Wheezing Stop: 04/30/25 00:59 Aspirin (Aspirin Ec 81 Mg Tabec) 81 mg PO DAILY [facility] Stop: 04/29/25 19:29 Last Admin: 03/30/25 21:02 Dose: Not Given Azithromycin (Azithromycin 250 Mg Tablet) 250 mg PO QDAY [facility] Stop: 04/05/25 08:59 Last Admin: 03/31/25 08:25 Dose: 250 mg Dextrose (Dextrose 50%-Water Inj 50 Ml Syringe) 25 ml IV Q15MIN PRN PRN Reason: BG 50-70 responsive npo pt Stop: 04/29/25 19:54 Dextrose (Dextrose 50%-Water Inj 50 Ml Syringe) 50 ml IV Q15MIN PRN PRN Reason: BG <50 OR BG <70 & pt unresponsive Stop: 04/29/25 19:54 Divalproex Sodium (Divalproex Sod Ec 125 Mg Tabec) 250 mg PO BID [facility] Stop: 04/29/25 20:59 Last Admin: 03/31/25 08:24 Dose: 250 mg Docusate Sodium (Docusate Sod 250 Mg Capsule) 250 mg PO QDAY [facility]; Protocol Stop: 04/29/25 19:29 Last Admin: 03/31/25 08:25 Dose: 250 mg Glucagon (Glucagon Inj 1 Mg Vial) 1 mg IM Q15MIN PRN PRN Reason: BG <70, and no IV access Heparin Sodium (Porcine) (Heparin Sod Inj 5000 Unit/Ml Vial) 5,000 unit SC BID [facility] Stop: 04/13/25 20:59 Last Admin: 03/31/25 08:23 Dose: 5,000 unit Ceftriaxone Sodium/Dextrose (Rocephin/D5w 1gm Iv Premix) 1 gm in 50 mls @ 100 mls/hr IV QDAY [facility] Stop: 04/07/25 08:59 Last Admin: 03/31/25 08:24 Dose: 100 mls/hr Insulin Human Lispro (Insulin Lispro (Admelog) 1 Unit/0.01 Ml Unit) 0 unit SC ACHS [facility]; Protocol Stop: 04/29/25 20:59 Last Admin: 03/31/25 11:36 Dose: 2 unit Levothyroxine Sodium (Levothyroxine Sodium 88 Mcg Tablet) 88 mcg PO ACBR [facility] Stop: 04/30/25 05:59 Last Admin: 03/31/25 05:13 Dose: Not Given Normangee Carbonate (Normangee Carb 150 Mg Capsule) 300 mg PO QDAY [facility] Stop: 04/30/25 08:59 Last Admin: 03/31/25 08:24 Dose: 300 mg Ondansetron HCl (Ondansetron Inj 2 Mg/Ml Inj 2 Ml) 4 mg IVP Q6H PRN; Protocol PRN Reason: NAUSEA OR VOMITING Stop: 04/29/25 17:57 Oxybutynin Chloride (Oxybutynin Chlor 5 Mg Tablet) 5 mg PO QDAY [facility] Stop: 04/30/25 08:59 Last Admin: 03/31/25 08:24 Dose: 5 mg Pantoprazole Sodium (Pantoprazole Inj 40 Mg Vial) 40 mg IVP QDAY [facility] Stop: 04/30/25 08:59 Last Admin: 03/31/25 08:22 Dose: 40 mg Polyethylene Glycol (Polyethylene Glycol 17 Gm Packet) 17 gm PO QDAY [facility] Stop: 04/30/25 08:59 Last Admin: 03/31/25 08:25 Dose: 17 gm Discontinued Medications Azithromycin (Azithromycin 250 Mg Tablet) 500 mg PO X1 ONE Stop: 03/30/25 19:24 Last Admin: 03/30/25 20:21 Dose: 500 mg Sodium Chloride (Ns) 2,000 mls @ 150 mls/hr IV .[id number] ONE Stop: 03/30/25 21:17 Last Infusion: 03/30/25 17:23 Dose: 150 mls/hr Vancomycin HCl 1,000 mg/ (Sodium Chloride) 250 mls @ 150 mls/hr IV X1 ONE Stop: 03/30/25 09:37 Last Admin: 03/30/25 09:39 Dose: Not Given Piperacillin/Tazobactam/Dextrose (Zosyn) 3.375 gm in 50 mls @ 100 mls/hr IV X1 ONE Stop: 03/30/25 08:27 Last Infusion: 03/30/25 09:25 Dose: Infused Sodium Chloride (Ns) 1,000 mls @ 1,000 mls/hr IV .Q1H ONE Stop: 03/30/25 08:57 Last Infusion: 03/30/25 10:26 Dose: Infused Vancomycin/Sodium Chloride (Vancomycin/Ns 1 Gm Ivpb) 200 mls @ 120 mls/hr IV X1 ONE Stop: 03/30/25 09:54 Last Infusion: 03/30/25 12:03 Dose: Infused Sodium Chloride (Ns) 1,000 mls @ 70 mls/hr IV .[id number] [facility] Stop: 04/29/25 18:59 Last Admin: 03/31/25 05:04 Dose: 70 mls/hr Lactulose (Lactulose Syrup 20 Gm/30 Ml Udc) 30 gm PO TID PRN; Protocol PRN Reason: CONSTIPATION Stop: 04/29/25 19:26 Lactulose (Lactulose Syrup 20 Gm/30 Ml Udc) 10 gm PO QDAY [facility]; Protocol Stop: 04/30/25 08:59 Lactulose (Lactulose Syrup 20 Gm/30 Ml Udc) 10 gm PO TID [facility]; Protocol Stop: 04/29/25 21:59 Last Admin: 03/31/25 13:22 Dose: 10 gm Sodium Chloride (Sodium Chloride Rt 10% 15 Ml Nebu) 5 ml INH X1 ONE Stop: 03/30/25 19:41 Last Admin: 03/30/25 20:11 Dose: 5 ml Assessment & Plan Plan This is a 58-year-old female PMHx of Hx of disability, bipolar disorder, T2DM, constipation, urinary retention, recurrent UTI, presenting with acute altered mental status. Admitted for acute encephalopathy 2/2 sepsis UTI versus pneumonia. Acute Encephalopathy Sepsis, SOFA 3 Urinary tract infection, likely GNR Immunity acquired pneumonia Dehydration Lactic acidosis (resolved) Presenting with acute mental status with signs and symptoms of UTI including subjective dark and malodorous urine, and subjective fever, T 101 on admission. She has a history of recurrent UTI, currently on NITROFURANTOIN for UTI. Admission UA showed UTI. CXR showed left perihilar/basilar pneumonia, although denies cough. No leukocytosis. Currently on liter NC, satting 93%. Appears dehydrated on exam. Had mild lactic acidosis, likely 2/2 sepsis, resolved with fluids. Head CT was negative for acute pathology, No focal neurological deficit on exam. Ammonia borderline elevated at 33, unlikely to be culprit. Received 2 L NS and VANCOMYCIN x 1 in ED. AMS slightly improving since this morning, however still slightly altered and requiring oxygen at this time. ? Started CEFTRIAXONE (03/30 to present) ? Started AZITHROMYCIN (03/30 to present) ? Started DuoNebs q.6h. PRN ? Started maintenance NS at 75 cc/80 ? Pending blood culture ? Pending COVID, influenza A/B ? Pending LITHIUM level ? Daily labs Acute transaminitis Liver cirrhosis, with mild ascites Mild hyperbilirubinemia Mildly elevated ammonia Initial AST 419 (base 40-50), ALT 318 (baseline normal), ALP 200, TB 0.5 > 1.4. MRCP showed cirrhosis, mild ascites, mild splenomegaly, no hepatic pathology. No previous imaging on file. Currently asymptomatic, denies abdominal pain, no pain or mass on abdominal exam. No history of alcohol use, U tox negative. No hepatitis panel on file. Ammonia 33, borderline elevated, unlikely to cause hepatic encephalopathy, however will start LACTULOSE. ? Pending hepatitis panel ? Pending HIDA scan ? Continue LACTULOSE 10 mg TID, goal 2-3 BM daily ? Consider GI consult T2DM A1c 6.8 from 12/01/2024. GLUCOSE 166 on admission. ? INSULIN sliding scale ? Accu-Cheks ? Pending repeat A1c Hypothyroidism ? Resume home LEVOTHYROXINE 88 mcg AC BR ? Pending TSH, free T4 Chronic constipation ? Continue home DOCUSATE 50 mg q. day ? LACTULOSE PRN on board Chronic urinary retention ? Continue home OXYBUTYNIN 5 mg daily Bipolar disorder ? Continue home LITHIUM 20 mg daily ? Pending LITHIUM level Health maintenance Diet: Regular, pending bedside swallow eval GI prophylaxis: PROTONIX DVT prophylaxis: HEPARIN SQ BID Antibiotics: CEFTRIAXONE, AZITHROMYCIN CODE STATUS: Full code Disposition: Admitted for sepsis UTI/pneumonia, pending cirrhosis workup. Case was discussed with attending physician and senior resident. Anai Slater DO PGYI Attending Provider Attestation/Addendum Diane Carpenter DO, attest that I was physically present for the [place] portions of the service and evaluated the patient with the resident and I reviewed and discussed the case with the resident and agree with the resident's findings and plans of care as documented above Patient is a 59 year old female with Pmhx of development delay, bipolar disorder, T2DM, constipation who was brought to the ED due to altered mental status. Patient was recently started on antibiotics with nitrofurantoin, but appears to have worsening generalized weakness. No caregiver at bedside. However, history obtained from bedside nurse who states that the patient was obtunded and nonresponsive on presentation. Patient improved after receiving IV fluids. She is now able to wave, but not answering questions. Eyes are tracking, unable to follow commands. However, her activity is purposeful. Will admit patient to telemetry for further workup and medical management for sepsis 2/2 UTI and dehydration. Will order HIDA scan due to concern for acute cholecystitis due to findings on CT abdomen and pelvis. Patient grimaces on palpation of RUQ, but unclear if patient has postive bahena's sign. Will f/u with blood and urine cultures.
--- NOTE | 2025-03-30 19:12 | PD.RESCONSUL ---
HPI Data of Consult Requesting Physician: Diane Jeffrey DO Admitting Provider: Diane Jeffrey DO Attending Provider: Diane Jeffrey DO Primary Care Provider: Yadira Cano MD Consult Narrative History of present illness: This is a 58-year-old female PMHx of Hx of disability, bipolar disorder, T2DM, constipation, urinary retention, recurrent UTI, presenting with acute altered mental status. She is coming from [facility] where she currently resides. History obtained from caregiver at bedside. Per caregiver, also [facility], is at her normal state of health tonight before. However this morning found to be decreased mentation, slightly less responsive and found to have a low-grade fever this morning. She was diagnosed with UTI earlier this month, has been on NITROFURANTOIN, presented to ED on 03/29/2025 with symptoms of UTI and was given a dose of GENTAMICIN, and sent home on NITROFURANTOIN which currently taking. Caregiver states she still having dark foul-smelling urine. However patient does not complain of any urinary symptoms. Patient also denies chest pain, headaches, shortness of breath, abdominal pain, N/V/D/C, dysuria or urinary frequency or urgency. She was admitted in November of this year and treated for sepsis secondary to influenza/bacterial pneumonia. Per small animal caretaker, she had made full recovery since. At baseline, she ambulates with assistance secondary to bilateral lower extremity deformity, usually she can talk incompetency although speech nonfluent, but able to communicate with staff. ED COURSE: T101.0, BP 127/78, HR 98, RR 22, satting 92% on room air. CBC unremarkable except for PLT 109 (baseline 70). Normal coag studies. VBG showed pH 7.5, pCO2 36, PO279. CHEM panel significant for GLUCOSE 144, TB 1.4, AST 419, ALT 381, ALP 200, ammonia 33. Negative troponin, BNP, and Pro-Calc. UA showed UTI with positive LE/nitrite, 19 RBCs, 234 WBCs, 2+ bacteria, 1+ blood. EKG showed sinus rhythm with nonspecific ST changes. Head CT was negative for acute pathology. CXR showed left perihilar and left basal pneumonia. MRCP showed cirrhosis, mild ascites, mild splenomegaly,, no common hepatic or common bile duct stone, recommended HIDA which were ordered. PMHx: As above. PSHx: History abdominal surgery, and left hip repair. MEDS: [ASPIRIN daily, DIVALPROEX 500 mg HS, LEVOTHYROXINE 88 mcg, LITHIUM carbonate 300 mg, METFORMIN 500 mg daily, OXYBUTYNIN 5 mg daily, potassium tablets daily, VITAMIN D3 2000 units daily, DOCUSATE PRN, senna, PRN, MIRALAX PRN, LACTULOSE 10 mg PRN, TYLENOL 325 PRN. ALLERGIES: IBUPROFEN (rash), TETRACYCLINE (rash) FHx: Uknown (history of child abuse) SH: Occasional beer, no drug or tobacco use. cc:: cc: Diane Jeffrey, DO Exam Vital Signs Temp Pulse Resp BP Pulse Ox O2 Del Method O2 Flow Rate 98.2 F 67 17 115/60 93 L Nasal Cannula 2 03/30/25 17:49 03/30/25 17:49 03/30/25 17:49 03/30/25 17:49 03/30/25 17:49 03/30/25 17:22 03/30/25 17:22 Narrative Exam GENERAL Normal appearing adult female, NAD, on nasal cannula. HEENT NCAT.?DONNA. Oral mucosa is dry. Patent Nares NECK Supple, nontender, no thyromegaly, no meningismus, no JVD, no step offs CHEST RRR, no m/g/r CTAB, no w/r/r. Symmetrical chest rise. No intercostal subcostal retraction Atraumatic, nontender, no crepitus, symmetrical expansion. ABDOMEN Soft, flat, nontender. No guarding/rebound tenderness/masses. Bowel sounds presents EXTREMITIES No edema/cyanosis.? SKIN Warm and dry. Multiple superficial skin rashes throughout, no ulcers or open wounds. NEUROMUSCULAR No lumbar or midline, no CVA, no paraspinal muscle spasm or tenderness. Moves all 4 extremities well, with full ROM and good CSM. BRIONES x4, CN II-XII grossly intact. No focal neurologic deficits. PSYCHIATRY Normal mood and affect, cooperative, no SI or HI or hallucinations. Results Labs 04/01/25 05:32 04/01/25 05:32 Labs: Short CBC 03/30/25 Range/Units 08:08 WBC 5.5 (3.6-11.0) Thou/mm3 Hgb 13.6 (12.0-16.0) g/dL Hct 39.8 (36.0-46.0) % Plt Count 109 L D (140-440) Thou/mm3 BMP 03/30/25 08:08 Sodium 143 Potassium 4.7 D Chloride 106 Carbon Dioxide 27.3 BUN 17 Creatinine 0.9 Glucose 141 H Calcium 8.9 Cardiac Enzymes 03/30/25 Range/Units 08:08 Troponin I < 0.002 (0.0-0.045) ng/mL Liver Function 03/30/25 Range/Units 08:08 Total Bilirubin 1.4 H D (0.3-1.2) mg/dL AST 419 H (0-34) U/L ALT 381 H (10-49) U/L Alkaline Phosphatase 200 H D (46-116) U/L Albumin 3.7 (3.5-5.0) gm/dL Urine 03/30/25 Range/Units 08:44 Urine Color Yellow (Lt Yel-Yel) Urine Clarity Hazy (Clear/Hazy) Urine pH 6.0 (5.0-7.0) Ur Specific [place] 1.018 (1.001-1.035) Urine Protein Trace (Neg - Trace) Urine Glucose (UA) Negative (Negative) ABG Interpretation ABG results: 03/30/25 08:08 VBG pH 7.50 VBG pCO2 36 VBG pO2 79 H VBG Base Excess 5 H Quality Measures Quality Measures none Medications Home Medications and Allergies Home Medications ?Medication ?Instructions ?Recorded ?Confirmed ?Type ASPIRIN (ASA 81MG EC) 81 mg PO DAILY ##0 11/12/13 10/28/23 History divalproex 250 mg tablet,delayed 250 mg PO BID #0 tabs 11/12/13 10/28/23 History release (Depakote) docusate sodium 250 mg capsule 250 mg PO QDAY ##0 11/12/13 10/28/23 History (DSS) oxybutynin chloride 5 mg tablet 5 mg PO QDAY ##0 11/12/13 10/28/23 History potassium chloride 8 mEq 8 meq PO QDAY #0 tabs 11/12/13 10/28/23 History tablet,extended release (Klor-Con) lactulose 10 gram/15 mL oral 30 gm PO TID PRN CONSTIPATION 30 11/15/13 10/28/23 History solution (Enulose) days ##0 polyethylene glycol 3350 17 gram 1 pkt PO QDAY ##0 02/17/17 10/28/23 History oral powder packet (Miralax) cholecalciferol (vitamin D3) 50 50 mcg PO QDAY 10/28/23 10/28/23 History mcg (2,000 unit) capsule (Vitamin D3) diclofenac sodium 1 % topical gel 1 ea topical QDAY 10/28/23 10/28/23 History docusate sodium 100 mg capsule 100 mg PO QDAY 10/28/23 10/28/23 History lactulose 10 gram/15 mL oral 15 ml PO QDAY 10/28/23 10/28/23 History solution levothyroxine 88 mcg tablet 88 mcg PO QDAY 10/28/23 10/28/23 History lithium carbonate 300 mg capsule 300 mg PO QDAY 10/28/23 10/28/23 History metformin 500 mg tablet 500 mg PO QDAY 10/28/23 10/28/23 History Allergies Allergy/AdvReac Type Severity Reaction Status Date / Time tetracycline Allergy Unknown Verified 10/28/23 12:52 ibuprofen AdvReac Unknown Verified 10/28/23 12:52 Visit Medications Acetaminophen (Acetaminophen 325 Mg Tablet) 650 mg PO Q6H PRN PRN Reason: PAIN SCALE 1-3 (mild Stop: 04/29/25 17:57 Acetaminophen (Acetaminophen 325 Mg Tablet) 650 mg PO Q6H PRN PRN Reason: Fever >100.4 Stop: 04/29/25 17:57 Sodium Chloride (Ns) 2,000 mls @ 150 mls/hr IV .[id number] ONE Stop: 03/30/25 21:17 Last Infusion: 03/30/25 17:23 Dose: 150 mls/hr Ceftriaxone Sodium/Dextrose (Rocephin/D5w 1gm Iv Premix) 1 gm in 50 mls @ 100 mls/hr IV QDAY SINA Stop: 04/07/25 08:59 Sodium Chloride (Ns) 1,000 mls @ 70 mls/hr IV .[id number] SINA Stop: 04/29/25 18:59 Ondansetron HCl (Ondansetron Inj 2 Mg/Ml Inj 2 Ml) 4 mg IVP Q6H PRN; Protocol PRN Reason: NAUSEA OR VOMITING Stop: 04/29/25 17:57 Pantoprazole Sodium (Pantoprazole Inj 40 Mg Vial) 40 mg IVP QDAY SINA Stop: 04/30/25 08:59 Discontinued Medications Vancomycin HCl 1,000 mg/ (Sodium Chloride) 250 mls @ 150 mls/hr IV X1 ONE Stop: 03/30/25 09:37 Last Admin: 03/30/25 09:39 Dose: Not Given Piperacillin/Tazobactam/Dextrose (Zosyn) 3.375 gm in 50 mls @ 100 mls/hr IV X1 ONE Stop: 03/30/25 08:27 Last Infusion: 03/30/25 09:25 Dose: Infused Sodium Chloride (Ns) 1,000 mls @ 1,000 mls/hr IV .Q1H ONE Stop: 03/30/25 08:57 Last Infusion: 03/30/25 10:26 Dose: Infused Vancomycin/Sodium Chloride (Vancomycin/Ns 1 Gm Ivpb) 200 mls @ 120 mls/hr IV X1 ONE Stop: 03/30/25 09:54 Last Infusion: 03/30/25 12:03 Dose: Infused Assessment & Plan Plan This is a 58-year-old female PMHx of Hx of disability, bipolar disorder, T2DM, constipation, urinary retention, recurrent UTI, presenting with acute altered mental status. Admitted for acute encephalopathy 2/2 sepsis UTI versus pneumonia. Acute Encephalopathy Sepsis, SOFA 3 Urinary tract infection, likely GNR Immunity acquired pneumonia Lactic acidosis (resolved) Presenting with acute mental status with signs and symptoms of UTI including subjective dark and malodorous urine, and subjective fever, T 101 on admission. She has a history of recurrent UTI, currently on NITROFURANTOIN for UTI. Admission UA showed UTI. CXR showed left perihilar/basilar pneumonia, although denies cough. No leukocytosis. Currently on liter NC, satting 93%. Appears dehydrated on exam. Had mild lactic acidosis, likely 2/2 sepsis, resolved with fluids. Head CT was negative for acute pathology, No focal neurological deficit on exam. Ammonia borderline elevated at 33, unlikely to be culprit. Received 2 L NS and VANCOMYCIN x 1 in ED. AMS slightly improving since this morning, however still slightly altered and requiring oxygen at this time. ? Started CEFTRIAXONE (03/30 to present) ? Started AZITHROMYCIN (03/30 to present) ? Started DuoNebs q.6h. PRN ? Started maintenance NS at 75 cc/80 ? Pending blood culture ? Pending COVID, influenza A/B ? Pending LITHIUM level ? Daily labs Acute transaminitis Liver cirrhosis, with mild ascites Mild hyperbilirubinemia Mildly elevated ammonia Initial AST 419 (base 40-50), ALT 318 (baseline normal), ALP 200, TB 0.5 > 1.4. MRCP showed cirrhosis, mild ascites, mild splenomegaly, no hepatic pathology. No previous imaging on file. Currently asymptomatic, denies abdominal pain, no pain or mass on abdominal exam. No history of alcohol use, U tox negative. No hepatitis panel on file. Ammonia 33, borderline elevated, unlikely to cause hepatic encephalopathy, however will start LACTULOSE. ? Pending hepatitis panel ? Pending HIDA scan ? Continue LACTULOSE 10 mg TID, goal 2-3 BM daily ? Consider GI consult T2DM A1c 6.8 from 12/01/2024. GLUCOSE 166 on admission. ? INSULIN sliding scale ? Accu-Cheks ? Pending repeat A1c Hypothyroidism ? Resume home LEVOTHYROXINE 88 mcg AC BR ? Pending TSH, free T4 Chronic constipation ? Continue home DOCUSATE 50 mg q. day ? LACTULOSE PRN on board Chronic urinary retention ? Continue home OXYBUTYNIN 5 mg daily Bipolar disorder ? Continue home LITHIUM 20 mg daily ? Pending LITHIUM level Health maintenance Diet: Regular, pending bedside swallow eval GI prophylaxis: PROTONIX DVT prophylaxis: HEPARIN SQ BID Antibiotics: CEFTRIAXONE, AZITHROMYCIN CODE STATUS: Full code Disposition: Admitted for sepsis UTI/pneumonia, pending cirrhosis workup. Case was discussed with attending physician and senior resident. Anai Slater DO PGYI
[2025-03-30] MEDS: SODIUM CHLORIDE RT 10% 15 ML NEBU 5 ML INH (20:11)
[2025-03-30] MEDS: AZITHROMYCIN 250 MG TABLET 500 MG PO (20:21)
[2025-03-30] MEDS: LACTULOSE SYRUP 20 GM/30 ML UDC 10 GM PO (22:42)
[2025-03-30] MEDS: DOCUSATE SOD 250 MG CAPSULE PO (22:43)
[2025-03-30] MEDS: HEPARIN SOD INJ 5000 UNIT/ML VIAL SC (22:43)
[2025-03-30] MEDS: DIVALPROEX SOD EC 125 MG TABEC 250 MG PO (22:43)
[2025-03-31] VITALS (9 sets, daily range): BP systolic 92–135; BP diastolic 33–67; PULSE 59–94; RESP 14–20; TEMP 36–36.8; O2SAT 88–98; BMI 26.4
[2025-03-31 02:30] LABS: Lithium 0.35 mEq/L (1.00-1.20)
[2025-03-31] MEDS: SODIUM CHLORIDE 0.9% 1000 ML 1,000 ML 70 ML IV (05:04)
[2025-03-31 05:49] LABS: Basophils % (Auto) 0 % (0-2.5); Eosinophils # (Auto) 0.1 Thou/mm3 (0.0-0.5); Eosinophils % (Auto) 2 % (0-10); Hematocrit 36.4 % (36.0-46.0); Immature Granulocytes % (Auto) 0 % (0-0); Immature Granulocytes Auto 0.01 Thou/mm3 (0.00-0.00); Lymphocytes # (Auto) 1.3 Thou/mm3 (1.0-4.8); Lymphocytes % (Auto) 34 % (10-50); Mean Corpuscular Hemoglobin 28.9 pg (25.0-35.0); Mean Corpuscular Volume 88 fL (80-100); Monocytes # (Auto) 0.3 Thou/mm3 (0.0-0.8); Monocytes % (Auto) 8 % (0-12); Neutrophils # (Auto) 2.2 Thou/mm3 (1.8-7.7); Neutrophils % (Auto) 56 % (37-80); Nucleated Red Blood Cell % 0 /100 WBC (0); Platelet Count 90 Thou/mm3 (140-440); RDW Standard Deviation 43.5 fL (36.4-46.3); Red Blood Count 4.15 Miln/mm3 (4.00-5.20); White Blood Count 3.9 Thou/mm3 (3.6-11.0)
[2025-03-31 06:37] LABS: Alanine Aminotransferase 222 U/L (10-49); Albumin, Serum 3.4 gm/dL (3.5-5.0); Albumin/Globulin Ratio 1.5 (1.2-2.2); Alkaline Phosphatase 160 U/L (46-116); Anion Gap 8 (7-16); BUN/Creatinine Ratio 19 Ratio (12-20); Bilirubin,Total 0.7 mg/dL (0.3-1.2); Blood Urea Nitrogen 13 mg/dL (9-23); Calcium 9.2 mg/dL (8.3-10.6); Calcium (Corrected) 9.7 mg/dL (8.5-10.1); Chloride 108 mMol/L (98-107); Creatinine (Component) 0.7 mg/dL (0.6-1.3); Estimated Creatinine Clearance 66.5 mL/min (>60); Free T4 (Free Thyroxine) 0.92 ng/dL (0.89-1.76); Globulin 2.3 gm/dL (2.3-3.5); Glucose 84 mg/dL (74-106); Magnesium 1.7 mg/dL (1.6-2.6); Osmolality,Calculated 284 (275-295); Phosphorous 3.7 mg/dL (2.4-5.1); Potassium 4.5 mMol/L (3.4-5.1); Sodium 143 mMol/L (136-145); Thyroid Stimulating Hormone 8.05 uIU/mL (0.55-4.78); Total Protein 5.7 gm/dL (5.7-8.2); eGFR > 60 See Note
[2025-03-31] MEDS: PANTOPRAZOLE INJ 40 MG VIAL IVP (08:22)
[2025-03-31] MEDS: HEPARIN SOD INJ 5000 UNIT/ML VIAL SC ×2 (08:23→20:34)
[2025-03-31] MEDS: LITHIUM CARB 150 MG CAPSULE 300 MG PO (08:24)
[2025-03-31] MEDS: OXYBUTYNIN CHLOR 5 MG TABLET PO (08:24)
[2025-03-31] MEDS: cefTRIAXone/D5w 1gm IV premix 1 GM/50 ML BAG IV (08:24)
[2025-03-31] MEDS: DIVALPROEX SOD EC 125 MG TABEC 250 MG PO ×2 (08:24→20:34)
[2025-03-31] MEDS: AZITHROMYCIN 250 MG TABLET PO (08:25)
[2025-03-31] MEDS: POLYETHYLENE GLYCOL 17 GM PACKET PO (08:25)
[2025-03-31] MEDS: DOCUSATE SOD 250 MG CAPSULE PO (08:25)
[2025-03-31 09:38] LABS: Influenza A Ag Negative; Influenza B Ag Negative
[2025-03-31] MEDS: INSULIN LISPRO (AdmeLOG) 1 UNIT/0.01 ML UNIT SC ×3 (11:36→20:44)
--- NOTE | 2025-03-31 13:15 | ESPR_ITS ---
<Statement entered by Juan R Samayoa MD - 04/01/25 11:36> Patient pending cultures, currently stable, improved overall from previous day. Anticipating d/c within 24-48 hours. I discussed with and supervised the fashion buying internship physician involved in the care of this patient. Patient assessment and plan was discussed with entire medicine team, including my attending. I agree with the assessment and plan as documented by fashion buying internship doctor. Patient care was discussed with my attending physician Dr. Rachele Samayoa, PGY-2 Documentation for date of: 03/31/25 Subjective Subjective Interval history: Patient is seen and examined at the bedside. There is no caregiver at the bedside. Only had minimal interaction with the patient in view of intellectual disability. Vitals are stable and patient is saturating well on room air On physical examination, bilateral air entry is present without any crackles or wheeze. No tenderness on palpation of abdomen. Labs showed downtrending ALT and ALP Will continue antibiotics and reevaluate patient tomorrow. Exam Vital Signs Temp Pulse Resp BP Pulse Ox O2 Del Method O2 Flow Rate 96.9 F 64 14 135/33 H 96 Room Air 2 03/31/25 11:52 03/31/25 11:52 03/31/25 11:52 03/31/25 11:52 03/31/25 11:52 03/31/25 11:52 03/30/25 17:22 Narrative Exam General: Awake. HEENT: Normocephalic, atraumatic, mucous membranes moist. Heart: Regular rate and rhythm, no murmurs. Lungs: Clear to auscultation with no wheezing or crackles. Abdomen: Soft, nondistended, nontender, positive bowel sounds. ?No guarding or rebound tenderness. Neurologic: Alert and oriented x3, no gross neurological deficit, and patient able to move all 4 extremities. Extremities: No edema. Skin: No rash or ecchymoses. Objective Labs 04/01/25 05:32 04/01/25 05:32 Labs: Laboratory Results - last 24 hr 03/30/25 03/31/25 03/31/25 23:38 05:10 08:45 WBC 3.9 RBC 4.15 Hgb 12.0 Hct 36.4 MCV 88 MCH 28.9 MCHC 33.0 RDW Std Deviation 43.5 Plt Count 90 L Neut % (Auto) 56 Lymph % (Auto) 34 [place] % (Auto) 8 Eos % (Auto) 2 Baso % (Auto) 0 Neut # (Auto) 2.2 Lymph # (Auto) 1.3 [place] # (Auto) 0.3 Eos # (Auto) 0.1 Baso # (Auto) 0.0 Immature Gran # (Auto) 0.01 H Absolute Nucleated RBC 0.00 Immature Gran % 0 Nucleated RBC % 0 Sodium 143 Potassium 4.5 Chloride 108 H Carbon Dioxide 27.0 Anion Gap 8 BUN 13 Creatinine 0.7 Estim Creat Clear Calc 66.5 eGFR > 60 BUN/Creatinine Ratio 19 Glucose 84 D Calculated Osmolality 284 Calcium 9.2 Corrected Calcium 9.7 Phosphorus 3.7 Magnesium 1.7 Total Bilirubin 0.7 D ALT 222 H Alkaline Phosphatase 160 H D Total Protein 5.7 Albumin 3.4 L Globulin 2.3 Albumin/Globulin Ratio 1.5 TSH 8.05 H Free T4 0.92 Guadalupe Guerra 0.35 L Influenza A (Rapid) Negative Influenza B (Rapid) Negative ABG Interpretation ABG results: 03/30/25 08:08 VBG pH 7.50 VBG pCO2 36 VBG pO2 79 H VBG Base Excess 5 H Quality Measures Quality Measures none Assessment & Plan Assessment Current Active Medications: Generic Name Dose Route Start Last Admin Trade Name Freq PRN Reason Stop Dose Admin Acetaminophen 650 mg 03/30/25 17:58 Acetaminophen 325 Mg Tablet PO 04/29/25 17:57 Q6H PRN PAIN SCALE 1-3 (mild Acetaminophen 650 mg 03/30/25 17:58 Acetaminophen 325 Mg Tablet PO 04/29/25 17:57 Q6H PRN Fever >100.4 Albuterol/Ipratropium 3 ml 03/30/25 19:42 Albuterol/Ipratropium (Duoneb) Rt Kirstie 3 Ml Nebu INH 04/30/25 00:59 Q6HRRT PRN Wheezing Aspirin 81 mg 03/30/25 19:30 03/30/25 21:02 Aspirin Ec 81 Mg Tabec PO 04/29/25 19:29 Not Given DAILY SINA Azithromycin 250 mg 03/31/25 09:00 03/31/25 08:25 Azithromycin 250 Mg Tablet PO 04/05/25 08:59 250 mg QDAY SINA Administration Dextrose 25 ml 03/30/25 19:55 Dextrose 50%-Water Inj 50 Ml Syringe IV 04/29/25 19:54 Q15MIN PRN BG 50-70 responsive npo pt Dextrose 50 ml 03/30/25 19:55 Dextrose 50%-Water Inj 50 Ml Syringe IV 04/29/25 19:54 Q15MIN PRN BG <50 OR BG <70 & pt unresponsive Divalproex Sodium 250 mg 03/30/25 21:00 03/31/25 08:24 Divalproex Sod Ec 125 Mg Tabec PO 04/29/25 20:59 250 mg BID SINA Administration Docusate Sodium 250 mg 03/30/25 19:30 03/31/25 08:25 Docusate Sod 250 Mg Capsule PO 04/29/25 19:29 250 mg QDAY SINA Administration Protocol Glucagon 1 mg 03/30/25 19:55 Glucagon Inj 1 Mg Vial IM Q15MIN PRN BG <70, and no IV access Heparin Sodium (Porcine) 5,000 unit 03/30/25 21:00 03/31/25 08:23 Heparin Sod Inj 5000 Unit/Ml Vial SC 04/13/25 20:59 5,000 unit BID SINA Administration Ceftriaxone Sodium/Dextrose 1 gm in 50 mls @ 100 mls/hr 03/31/25 09:00 03/31/25 08:24 Rocephin/D5w 1gm Iv Premix IV 04/07/25 08:59 100 mls/hr QDAY SINA Administration Sodium Chloride 1,000 mls @ 70 mls/hr 03/30/25 19:00 03/31/25 05:04 Ns IV 04/29/25 18:59 70 mls/hr .[id number] SINA Administration Insulin Human Lispro 0 unit 03/30/25 21:00 03/31/25 11:36 Insulin Lispro (Admelog) 1 Unit/0.01 Ml Unit SC 04/29/25 20:59 2 unit ACHS SINA Administration Protocol Lactulose 10 gm 03/30/25 22:00 03/31/25 05:13 Lactulose Syrup 20 Gm/30 Ml Udc PO 04/29/25 21:59 Not Given TID SINA Protocol Levothyroxine Sodium 88 mcg 03/31/25 06:00 03/31/25 05:13 Levothyroxine Sodium 88 Mcg Tablet PO 04/30/25 05:59 Not Given ACBR SINA Guadalupe Guerra Carbonate 300 mg 03/31/25 09:00 03/31/25 08:24 Guadalupe Guerra Carb 150 Mg Capsule PO 04/30/25 08:59 300 mg QDAY SINA Administration Ondansetron HCl 4 mg 03/30/25 17:58 Ondansetron Inj 2 Mg/Ml Inj 2 Ml IVP 04/29/25 17:57 Q6H PRN NAUSEA OR VOMITING Protocol Oxybutynin Chloride 5 mg 03/31/25 09:00 03/31/25 08:24 Oxybutynin Chlor 5 Mg Tablet PO 04/30/25 08:59 5 mg QDAY SINA Administration Pantoprazole Sodium 40 mg 03/31/25 09:00 03/31/25 08:22 Pantoprazole Inj 40 Mg Vial IVP 04/30/25 08:59 40 mg QDAY SINA Administration Polyethylene Glycol 17 gm 03/31/25 09:00 03/31/25 08:25 Polyethylene Glycol 17 Gm Packet PO 04/30/25 08:59 17 gm QDAY SINA Administration Plan This is a 58-year-old female PMHx of Hx of disability, bipolar disorder, T2DM, constipation, urinary retention, recurrent UTI, presenting with acute altered mental status. Admitted for acute encephalopathy 2/2 sepsis UTI versus pneumonia. Acute Encephalopathy, resolved Sepsis, SOFA 3, resolved Urinary tract infection, likely GNR Community acquired pneumonia Lactic acidosis (resolved) Presenting with acute mental status with signs and symptoms of UTI including subjective dark and malodorous urine, and subjective fever, T 101 on admission. She has a history of recurrent UTI, currently on NITROFURANTOIN for UTI. Admission UA showed UTI. CXR showed left perihilar/basilar pneumonia, although denies cough. No leukocytosis. Had mild lactic acidosis, likely 2/2 sepsis, resolved with fluids. Head CT was negative for acute pathology, No focal neurological deficit on exam. Ammonia borderline elevated at 33, unlikely to be culprit. COVID, influenza A/B - Negative Blood culture - no growth after 24hrs Guadalupe Guerra levels - below therapeutic range but patient bipolar appears to be stable Plan ? Started CEFTRIAXONE (03/30 to present) ? Started AZITHROMYCIN (03/30 to present) ? Started DuoNebs q.6h. PRN ? Daily labs Acute transaminitis, resolving Liver cirrhosis, with mild ascites Mild hyperbilirubinemia, resolved Initial AST 419 (base 40-50), ALT 318 (baseline normal), ALP 200, TB 0.5 > 1.4. Bilirubin is within normal limits and ALT is downtrending MRCP showed cirrhosis, mild ascites, mild splenomegaly, no hepatic pathology. No previous imaging on file. Currently asymptomatic, denies abdominal pain, no pain or mass on abdominal exam. No history of alcohol use, U tox negative. Plan ? Pending hepatitis panel - Will monitor LFT T2DM A1c 6.8 from 12/01/2024. GLUCOSE 166 on admission. Plan ? INSULIN sliding scale ? Accu-Cheks ? Pending repeat A1c Hypothyroidism ? Resumed home LEVOTHYROXINE 88 mcg AC BR ? TSH is slightly elevated and free T4 is within normal limits. Chronic constipation ? Continue home DOCUSATE 50 mg q. day ? LACTULOSE PRN on board Chronic urinary retention ? Continue home OXYBUTYNIN 5 mg daily Bipolar disorder ? Continue home LITHIUM 20 mg daily - Guadalupe Guerra levels - below therapeutic range but patient bipolar appears to be stable Health maintenance Diet: Regular GI prophylaxis: PROTONIX DVT prophylaxis: HEPARIN SQ BID Antibiotics: CEFTRIAXONE, AZITHROMYCIN CODE STATUS: Full code Disposition: Admitted for sepsis UTI/pneumonia Patient plan of care was discussed with the attending physician, Dr. Jeffrey and senior resident Dr. Danita Patino, PGY1 Attending Provider Attestation/Addendum I, Diane Jeffrey, DO, attest that I was physically present for the moctezuma portions of the service and evaluated the patient with the resident and I reviewed and discussed the case with the resident and agree with the resident's findings and plans of care as documented above Patient seen and eval this a.m. No campground caretaker available at bedside. Patient appears to have a positive Sanabria sign on palpation. However, it is unclear if she has pain after eating. However, patient is much more alert this morning and talkative. Will continue with antibiotics and follow-up with cultures. HIDA scan was ordered with [facility]. Will cancel at this time. Patient is eating very little, will speak to campground caretaker regarding abdominal pain as MRCP shows possible cholecystitis.
[2025-03-31] MEDS: LACTULOSE SYRUP 20 GM/30 ML UDC 10 GM PO (13:22)
--- NOTE | 2025-03-31 13:26 | PC.SS ---
Alvina Earl is a 59 year old female admitted to the [facility] for AMS. SW made contact with Lesley Galalrdo guardian, . Role and reason for the contact was explained to Shaista. SS confirmed pt is affiliated with [facility]. [facility] case management specialist is Sandra Riley, . Pt resides at [facility] for about 22+ years and plans to return. Pt is conserved and major medical decisions are made by [facility]. SS confirmed information on factsheet. Shaista confirmed pt does not have any family. Pt can be ambulatory and baseline is some communication. Pt likes to talk and sometimes speaks to people who are not present. SS met pt at bedside and pt was verbal. Shaista stated once pt returned to hospital, she made sure a report was made to pt CM Sandra. Making a report to [facility] CM is protocol for each hospital visit. Pt has RX go to [facility] [phone]. Transportation discussed and Shaista will be able to transport pt back to facility. Pt sees Dr. Davon Solorio. instructor ground services will remain available for any additional needs.? PCP: Dr. Davon Solorio Emergency Contact: with Lesley Gallardo guardian, Address: Correct on FaceSheet Discharge Destination: [facility]
--- NOTE | 2025-03-31 16:13 | PC.SS ---
SS spoke with Rhonda, Registration, updated PCP to Gini Solorio
[2025-04-01] VITALS (8 sets, daily range): BP systolic 95–123; BP diastolic 58–92; PULSE 57–74; RESP 16–26; TEMP 36–36.6; O2SAT 93–98; BMI 27.1
[2025-04-01] MEDS: LEVOTHYROXINE SODIUM 88 MCG TABLET PO (05:46)
[2025-04-01 06:19] LABS: Basophils % (Auto) 0 % (0-2.5); Eosinophils # (Auto) 0.1 Thou/mm3 (0.0-0.5); Eosinophils % (Auto) 2 % (0-10); Hematocrit 34.4 % (36.0-46.0); Hemoglobin 11.5 g/dL (12.0-16.0); Immature Granulocytes % (Auto) 0 % (0-0); Immature Granulocytes Auto 0.01 Thou/mm3 (0.00-0.00); Lymphocytes # (Auto) 1.8 Thou/mm3 (1.0-4.8); Lymphocytes % (Auto) 44 % (10-50); Mean Corpuscular HGB Conc 33.4 g/dl (31.0-37.0); Mean Corpuscular Volume 87 fL (80-100); Monocytes # (Auto) 0.3 Thou/mm3 (0.0-0.8); Monocytes % (Auto) 8 % (0-12); Neutrophils # (Auto) 1.9 Thou/mm3 (1.8-7.7); Neutrophils % (Auto) 45 % (37-80); Nucleated Red Blood Cell % 0 /100 WBC (0); Platelet Count 84 Thou/mm3 (140-440); RDW Standard Deviation 42.3 fL (36.4-46.3); Red Blood Count 3.96 Miln/mm3 (4.00-5.20); White Blood Count 4.2 Thou/mm3 (3.6-11.0)
--- NOTE | 2025-04-01 07:20 | ESPR_ITS ---
Documentation for date of: 04/01/25 Subjective Subjective Interval history: Examined at bedside. No acute overnight events. Has mild abdominal tenderness to palpation, spoke with Jo, caregiver, who stated this is chronic, and she always complains of abdominal pain and distention after eating. Vital stable. Sodium 146, GLUCOSE 181, LFTs downtrending, remainder CMP relatively normal. CBC stable, without leukocytosis. Exam Vital Signs Temp Pulse Resp BP Pulse Ox O2 Del Method O2 Flow Rate 96.8 F 60 16 123/92 H 98 Room Air 2 04/01/25 04:00 04/01/25 04:00 04/01/25 04:00 04/01/25 04:00 04/01/25 04:00 04/01/25 04:00 03/30/25 17:22 Narrative Exam Narrative Exam GENERAL * Normal appearing adult female, NAD, on nasal cannula. HEENT * NCAT. DONNA. Oral mucosa is dry. Patent Nares NECK * Supple, nontender, no thyromegaly, no meningismus, no JVD, no step offs CHEST * RRR, no m/g/r * CTAB, no w/r/r. Symmetrical chest rise. No intercostal subcostal retraction * Atraumatic, nontender, no crepitus, symmetrical expansion. ABDOMEN * Soft, flat, mildly tender to palpation throughout. * No guarding/rebound tenderness/masses. * Bowel sounds presents EXTREMITIES * No edema/cyanosis. SKIN * Warm and dry. * Multiple superficial skin rashes throughout, no ulcers or open wounds. NEUROMUSCULAR * No lumbar or midline, no CVA, no paraspinal muscle spasm or tenderness. * Moves all 4 extremities well, with full ROM and good CSM. * No focal neurologic deficits. PSYCHIATRY * Normal mood and affect, cooperative, no SI or HI or hallucinations. Objective Labs 04/02/25 07:11 04/02/25 07:11 Labs: Laboratory Results - last 24 hr 03/31/25 04/01/25 08:45 05:32 WBC 4.2 RBC 3.96 L Hgb 11.5 L Hct 34.4 L MCV 87 MCH 29.0 MCHC 33.4 RDW Std Deviation 42.3 Plt Count 84 L Neut % (Auto) 45 Lymph % (Auto) 44 [place]row % (Auto) 8 Eos % (Auto) 2 Baso % (Auto) 0 Neut # (Auto) 1.9 Lymph # (Auto) 1.8 [place]row # (Auto) 0.3 Eos # (Auto) 0.1 Baso # (Auto) 0.0 Immature Gran # (Auto) 0.01 H Absolute Nucleated RBC 0.00 Immature Gran % 0 Nucleated RBC % 0 Influenza A (Rapid) Negative Influenza B (Rapid) Negative ABG Interpretation ABG results: 03/30/25 08:08 VBG pH 7.50 VBG pCO2 36 VBG pO2 79 H VBG Base Excess 5 H Quality Measures Quality Measures none Assessment & Plan Assessment Current Active Medications: Generic Name Dose Route Start Last Admin Trade Name Freq PRN Reason Stop Dose Admin Acetaminophen 650 mg 03/30/25 17:58 Acetaminophen 325 Mg Tablet PO 04/29/25 17:57 Q6H PRN PAIN SCALE 1-3 (mild Acetaminophen 650 mg 03/30/25 17:58 Acetaminophen 325 Mg Tablet PO 04/29/25 17:57 Q6H PRN Fever >100.4 Albuterol/Ipratropium 3 ml 03/30/25 19:42 Albuterol/Ipratropium (Duoneb) Rt Kirstie 3 Ml Nebu INH 04/30/25 00:59 Q6HRRT PRN Wheezing Aspirin 81 mg 03/30/25 19:30 03/30/25 21:02 Aspirin Ec 81 Mg Tabec PO 04/29/25 19:29 Not Given DAILY SINA Azithromycin 250 mg 03/31/25 09:00 03/31/25 08:25 Azithromycin 250 Mg Tablet PO 04/05/25 08:59 250 mg QDAY SINA Administration Dextrose 25 ml 03/30/25 19:55 Dextrose 50%-Water Inj 50 Ml Syringe IV 04/29/25 19:54 Q15MIN PRN BG 50-70 responsive npo pt Dextrose 50 ml 03/30/25 19:55 Dextrose 50%-Water Inj 50 Ml Syringe IV 04/29/25 19:54 Q15MIN PRN BG <50 OR BG <70 & pt unresponsive Divalproex Sodium 250 mg 03/30/25 21:00 03/31/25 20:34 Divalproex Sod Ec 125 Mg Tabec PO 04/29/25 20:59 250 mg BID SINA Administration Docusate Sodium 250 mg 03/30/25 19:30 03/31/25 08:25 Docusate Sod 250 Mg Capsule PO 04/29/25 19:29 250 mg QDAY SINA Administration Protocol Glucagon 1 mg 03/30/25 19:55 Glucagon Inj 1 Mg Vial IM Q15MIN PRN BG <70, and no IV access Heparin Sodium (Porcine) 5,000 unit 03/30/25 21:00 03/31/25 20:34 Heparin Sod Inj 5000 Unit/Ml Vial SC 04/13/25 20:59 5,000 unit BID SINA Administration Ceftriaxone Sodium/Dextrose 1 gm in 50 mls @ 100 mls/hr 03/31/25 09:00 03/31/25 08:24 Rocephin/D5w 1gm Iv Premix IV 04/07/25 08:59 100 mls/hr QDAY SINA Administration Insulin Human Lispro 0 unit 03/30/25 21:00 03/31/25 20:44 Insulin Lispro (Admelog) 1 Unit/0.01 Ml Unit SC 04/29/25 20:59 2 unit ACHS SINA Administration Protocol Levothyroxine Sodium 88 mcg 03/31/25 06:00 04/01/25 05:46 Levothyroxine Sodium 88 Mcg Tablet PO 04/30/25 05:59 88 mcg ACBR SINA Administration [place] Carbonate 300 mg 03/31/25 09:00 03/31/25 08:24 [place] Carb 150 Mg Capsule PO 04/30/25 08:59 300 mg QDAY SINA Administration Ondansetron HCl 4 mg 03/30/25 17:58 Ondansetron Inj 2 Mg/Ml Inj 2 Ml IVP 04/29/25 17:57 Q6H PRN NAUSEA OR VOMITING Protocol Oxybutynin Chloride 5 mg 03/31/25 09:00 03/31/25 08:24 Oxybutynin Chlor 5 Mg Tablet PO 04/30/25 08:59 5 mg QDAY SINA Administration Pantoprazole Sodium 40 mg 03/31/25 09:00 03/31/25 08:22 Pantoprazole Inj 40 Mg Vial IVP 04/30/25 08:59 40 mg QDAY SINA Administration Polyethylene Glycol 17 gm 03/31/25 09:00 03/31/25 08:25 Polyethylene Glycol 17 Gm Packet PO 04/30/25 08:59 17 gm QDAY SINA Administration Plan This is a 58-year-old female PMHx of Hx of disability, bipolar disorder, T2DM, constipation, urinary retention, recurrent UTI, presenting with acute altered mental status. Admitted for acute encephalopathy 2/2 sepsis UTI versus pneumonia. Urinary tract infection, likely GNR Community acquired pneumonia Acute Encephalopathy (resolved) Sepsis, SOFA 3 (resolved) Lactic acidosis (resolved) Presenting with acute mental status with signs and symptoms of UTI including subjective dark and malodorous urine, and subjective fever, T 101 on admission. She has a history of recurrent UTI, currently on NITROFURANTOIN for UTI. Admission UA showed UTI. CXR showed left perihilar/basilar pneumonia, although denies cough. No leukocytosis. Had mild lactic acidosis, likely 2/2 sepsis, resolved with fluids. Head CT was negative for acute pathology, No focal neurological deficit on exam. Ammonia borderline elevated at 33, unlikely to be culprit. COVID, influenza A/B - Negative Blood culture - no growth after 24hrs [place] levels - below therapeutic range but patient bipolar appears to be stable. ? Started CEFTRIAXONE (03/30 to present) ? Started AZITHROMYCIN (03/30 to present) ? Started DuoNebs q.6h. PRN ? Daily labs Acute transaminitis, resolving Liver cirrhosis, with mild ascites Mild hyperbilirubinemia, resolved Initial AST 419 (base 40-50), ALT 318 (baseline normal), ALP 200, TB 0.5 > 1.4. Bilirubin is within normal limits and ALT is downtrending MRCP showed cirrhosis, mild ascites, mild splenomegaly, no hepatic pathology. No previous imaging on file. Currently asymptomatic, denies abdominal pain, no pain or mass on abdominal exam. No history of alcohol use, U tox negative. Gallbladder ultrasound showed normal gallbladder, normal CBD, mild to moderate hepatomegaly without focal liver lesions. ? Pending hepatitis panel - Will monitor LFT Mild hyponatremia Sodium 146, likely dehydration. ? Salt restriction ? Daily labs T2DM A1c 6.8 from 12/01/2024. GLUCOSE 166 on admission. ? INSULIN sliding scale ? Accu-Cheks ? Pending repeat A1c Hypothyroidism ? Resumed home LEVOTHYROXINE 88 mcg AC BR ? TSH is slightly elevated and free T4 is within normal limits. Chronic constipation ? Continue home DOCUSATE 50 mg q. day ? LACTULOSE PRN on board Chronic urinary retention ? Continue home OXYBUTYNIN 5 mg daily Bipolar disorder ? Continue home LITHIUM 20 mg daily - [place] levels - below therapeutic range but patient bipolar appears to be stable Health maintenance Diet: Regular GI prophylaxis: PROTONIX DVT prophylaxis: HEPARIN SQ BID Antibiotics: CEFTRIAXONE, AZITHROMYCIN CODE STATUS: Full code Disposition: Admitted for sepsis UTI/pneumonia Case was discussed with attending physician and senior resident. Anai Slater DO PGYI Attending Provider Attestation/Addendum Diane Carpenter DO, attest that I was physically present for the moctezuma portions of the service and evaluated the patient with the resident and I reviewed and discussed the case with the resident and agree with the resident's findings and plans of care as documented above Patient seen and evaluated this AM. Patient is back at baseline and talkative. No acute complaints overnight. HIDA scan cannot be done on weekend. However, patient appears to be tolerating diet. SHe does not appear in pain after meals. However, pt gives inconsistent responses upon palpation of RUQ on exam. She does not appear to have an overt Sanabria's sign. Initial CT showed gallbladder wall edema and ascites. Suspicion for cholecystitis is low. Will obtain US gallbladder to rule out acute cholecystitis. Continue with current management otherwise. Anticipate DC within next 24hrs if US is unremarkable.
[2025-04-01 07:27] LABS: Alanine Aminotransferase 132 U/L (10-49); Albumin/Globulin Ratio 1.3 (1.2-2.2); Alkaline Phosphatase 145 U/L (46-116); Anion Gap 8 (7-16); BUN/Creatinine Ratio 14 Ratio (12-20); Bilirubin,Total 0.3 mg/dL (0.3-1.2); Blood Urea Nitrogen 11 mg/dL (9-23); Calcium 8.9 mg/dL (8.3-10.6); Calcium (Corrected) 9.7 mg/dL (8.5-10.1); Carbon Dioxide 25.9 mMol/L (20.0-31.0); Chloride 112 mMol/L (98-107); Creatinine (Component) 0.8 mg/dL (0.6-1.3); Estimated Creatinine Clearance 58.9 mL/min (>60); Globulin 2.4 gm/dL (2.3-3.5); Glucose 181 mg/dL (74-106); Magnesium 1.7 mg/dL (1.6-2.6); Osmolality,Calculated 294 (275-295); Phosphorous 3.2 mg/dL (2.4-5.1); Sodium 146 mMol/L (136-145); Total Protein 5.4 gm/dL (5.7-8.2); eGFR > 60 See Note
[2025-04-01 07:29] LABS: Glucose Estimated Average 131 mg/dL (80-131); Hemoglobin A1C 6.2 % Hgb (4.8-6.0)
[2025-04-01] MEDS: INSULIN LISPRO (AdmeLOG) 1 UNIT/0.01 ML UNIT SC ×4 (07:53→20:59)
[2025-04-01] MEDS: POLYETHYLENE GLYCOL 17 GM PACKET PO (09:32)
[2025-04-01] MEDS: HEPARIN SOD INJ 5000 UNIT/ML VIAL SC ×2 (09:32→20:48)
[2025-04-01] MEDS: PANTOPRAZOLE 40 MG TABLET PO (09:33)
[2025-04-01] MEDS: OXYBUTYNIN CHLOR 5 MG TABLET PO (09:33)
[2025-04-01] MEDS: AZITHROMYCIN 250 MG TABLET PO (09:33)
[2025-04-01] MEDS: LITHIUM CARB 150 MG CAPSULE 300 MG PO (09:33)
[2025-04-01] MEDS: DOCUSATE SOD 250 MG CAPSULE PO (09:33)
[2025-04-01] MEDS: DIVALPROEX SOD EC 125 MG TABEC 250 MG PO ×2 (09:33→20:48)
[2025-04-01] MEDS: cefTRIAXone/D5w 1gm IV premix 1 GM/50 ML BAG IV (09:34)
--- NOTE | 2025-04-01 09:35 | XR_ITS ---
Examination: Abdomen sonogram, Limited Date and time of exam: April 01, 2025 0949 hrs. Indications: Altered mental status, elevated bilirubin fever abdominal pain this week Technique: Real-time weaver scale transabdominal sonographic images of the upper abdomen obtained. Findings: Normal gallbladder Normal common bile duct 0.2 cm Pancreatic head 2.5 cm Liver 18.1 cm no focal liver lesions Normal hepatopedal portal venous flow Patent IVC Impression: Normal gallbladder Normal common bile duct Mild to moderate hepatomegaly no focal liver lesions
[2025-04-01 21:09] LABS: Hepatitis A Antibody IgM Non Reactive (Non React); Hepatitis B Core Antibody IgM Non Reactive (Non React); Hepatitis B Surface Antigen Non Reactive (Non React); Hepatitis C Antibody Non Reactive (Non React)
[2025-04-02] VITALS: BP 136/74; PULSE 62; PULSE 63; RESP 25; TEMP 36.3; O2SAT 95
[2025-04-02 04:00] VITALS: BP 129/96; PULSE 59; PULSE 61; RESP 20; TEMP 36.1; O2SAT 96
[2025-04-02 05:04] VITALS: BP 115/62; PULSE 59; RESP 20; TEMP 36.3; O2SAT 96
[2025-04-02] MEDS: LEVOTHYROXINE SODIUM 88 MCG TABLET PO (05:42)
[2025-04-02 06:00] VITALS: BMI 26.2
[2025-04-02] MEDS: INSULIN LISPRO (AdmeLOG) 1 UNIT/0.01 ML UNIT SC (07:38)
[2025-04-02 08:00] VITALS: BP 111/56; PULSE 65; PULSE 79; RESP 18; TEMP 36.1; O2SAT 96
[2025-04-02 08:08] LABS: Basophils % (Auto) 0 % (0-2.5); Eosinophils # (Auto) 0.1 Thou/mm3 (0.0-0.5); Eosinophils % (Auto) 2 % (0-10); Hematocrit 34.2 % (36.0-46.0); Hemoglobin 12.2 g/dL (12.0-16.0); Immature Granulocytes % (Auto) 0 % (0-0); Immature Granulocytes Auto 0.01 Thou/mm3 (0.00-0.00); Lymphocytes # (Auto) 1.8 Thou/mm3 (1.0-4.8); Lymphocytes % (Auto) 39 % (10-50); Mean Corpuscular HGB Conc 35.7 g/dl (31.0-37.0); Mean Corpuscular Hemoglobin 29.8 pg (25.0-35.0); Mean Corpuscular Volume 83 fL (80-100); Monocytes # (Auto) 0.5 Thou/mm3 (0.0-0.8); Monocytes % (Auto) 10 % (0-12); Neutrophils # (Auto) 2.2 Thou/mm3 (1.8-7.7); Neutrophils % (Auto) 48 % (37-80); Nucleated Red Blood Cell % 0 /100 WBC (0); Platelet Count 96 Thou/mm3 (140-440); RDW Standard Deviation 40.3 fL (36.4-46.3); White Blood Count 4.6 Thou/mm3 (3.6-11.0)
[2025-04-02 08:25] LABS: Alanine Aminotransferase 101 U/L (10-49); Albumin, Serum 3.1 gm/dL (3.5-5.0); Albumin/Globulin Ratio 1.3 (1.2-2.2); Alkaline Phosphatase 144 U/L (46-116); Anion Gap 8 (7-16); BUN/Creatinine Ratio 17 Ratio (12-20); Bilirubin,Total 0.4 mg/dL (0.3-1.2); Blood Urea Nitrogen 12 mg/dL (9-23); Calcium 8.7 mg/dL (8.3-10.6); Calcium (Corrected) 9.4 mg/dL (8.5-10.1); Carbon Dioxide 29.8 mMol/L (20.0-31.0); Chloride 108 mMol/L (98-107); Creatinine (Component) 0.7 mg/dL (0.6-1.3); Estimated Creatinine Clearance 66.2 mL/min (>60); Globulin 2.4 gm/dL (2.3-3.5); Glucose 208 mg/dL (74-106); Magnesium 1.4 mg/dL (1.6-2.6); Osmolality,Calculated 296 (275-295); Phosphorous 3.4 mg/dL (2.4-5.1); Potassium 4.5 mMol/L (3.4-5.1); Sodium 146 mMol/L (136-145); Total Protein 5.5 gm/dL (5.7-8.2); eGFR > 60 See Note
[2025-04-02 08:59] VITALS: PULSE 68; RESP 18; O2SAT 95
[2025-04-02] MEDS: POLYETHYLENE GLYCOL 17 GM PACKET PO (09:30)
[2025-04-02] MEDS: cefTRIAXone/D5w 1gm IV premix 1 GM/50 ML BAG IV (09:30)
[2025-04-02] MEDS: HEPARIN SOD INJ 5000 UNIT/ML VIAL SC (09:30)
[2025-04-02] MEDS: AZITHROMYCIN 250 MG TABLET PO (09:31)
[2025-04-02] MEDS: LITHIUM CARB 150 MG CAPSULE 300 MG PO (09:31)
[2025-04-02] MEDS: OXYBUTYNIN CHLOR 5 MG TABLET PO (09:31)
[2025-04-02] MEDS: PANTOPRAZOLE 40 MG TABLET PO (09:31)
[2025-04-02] MEDS: DOCUSATE SOD LIQD 100 MG/10 ML UDC 250 MG PO (09:52)
[2025-04-02] MEDS: DIVALPROEX SOD 125 MG SPRINKLE 250 MG PO (09:52)
--- NOTE | 2025-04-02 09:56 | ESDS_ITS ---
<Statement entered by Diane Jeffrey DO - 04/02/25 16:46> I, Diane Jeffrey DO, attest that I was physically present for the moctezuma portions of the service and evaluated the patient with the resident and I reviewed and discussed the case with the resident and agree with the resident's findings and plans of care as documented above <Statement entered by Juan R Samayoa MD - 04/02/25 13:00> I discussed with and supervised the international relations teacher physician involved in the care of this patient. Patient assessment and plan was discussed with entire medicine team, including my attending. I agree with the assessment and plan as documented by international relations teacher doctor. Patient care was discussed with my attending physician Dr. Rachele Samayoa, PGY-2 Planned Discharge Date 04/02/25 DS: Providers Provider Date of admission: 03/30/25 17:58 Primary care physician: Davon Solorio MD Admitting Provider: Diane Jeffrey DO Attending Provider on Admission: Diane Jeffrey DO Attending Provider on DC: Diane Jeffrey DO Discharging Provider: Diane Jeffrey DO DS: Diagnosis Problem List Completed Was Problem List Reviewed/Reconciled?: Yes Hospital Course Hospital Course Hospital course: This is a 58-year-old female PMHx of disability, development delay, bipolar disorder, T2DM, constipation, urinary retention, recurrent UTI, presenting with acute altered mental status. Admitted for acute encephalopathy 2/2 sepsis UTI versus pneumonia. She was started on ANTIBIOTICS, symptoms improved, acute encephalopathy resolved, she was at baseline at the time of discharge. Blood and urine cultures were negative at 48 hours. Vitals relatively WNL, afebrile, normocardic. Labs relatively stable, no leukocytosis. Patient was stable and safe to discharge to [facility]. Will continue with ABX for PNA for 3 more days. Of note: She occasion complained of postprandial abdominal pain, poor caregiver, Shaista, this is a chronic problem related to bloating. LFTs were elevated, but improved since admission and continued to downtrend. Hep panel was negative. Initial MRCP showed mild splenomegaly, cirrhosis, mild ascites, mild gallbladder wall edema likely 2/2 ascites. Initially we ordered HIDA, however gallbladder ultrasound showed no gallbladder or common bile duct pathology. There was mild to moderate hepatomegaly without focal liver lesions. Abdominal pain possibly related to minimal ascites low suspicion for SBP, afebrile, no leukocytosis, minimal ascites on imaging, and she completed a course of CTX during this stay. IMAGE FINDINGS: * CXR showed left perihilar and left bibasilar pneumonia. * Head CT was negative for acute hemorrhage, mass effect or midline shift. * EKG shows sinus rhythm, nonspecific T wave abnormalities. * MRCP showed cirrhosis, mild ascites, mild splenomegaly, gallbladder wall edema likely related to ascites, no stones and common hepatic and CBD. * Gallbladder ultrasound showed normal gallbladder, normal CBD, mild to moderate hepatomegaly without focal liver lesions. * EKG showed sinus rhythm with nonspecific ST changes. PATIENT INSTRUCTIONS: * Follow-up with PCP within 1-2 weeks of discharge. * Recommended outpatient GI workup for liver cirrhosis, discussed with PCP. * May need long-term prophylactic ABX for recurrent UTI, please discuss with your PCP. * Return to Emergency Room if symptoms persist, worsen, or new symptoms develop. * Continue taking medications as prescribed below. ADMISSION DIAGNOSES: Urinary tract infection, likely GNR (improved) Community acquired pneumonia (improved) Acute Encephalopathy (resolved) Sepsis, SOFA 3 (resolved) Lactic acidosis (resolved) Acute transaminitis (improving) Liver cirrhosis, with mild ascites (improving) Mild hyperbilirubinemia (resolved) Mild hyponatremia (stable) T2DM Hypothyroidism Chronic constipation Chronic urinary retention Bipolar disorder Case was discussed with attending physician and senior resident. Anai Slater DO PGYI Time Spent with Patient Time attestation: Total time spent providing and/or coordinating discharge services: Greater than 35 minutes. Time spent: Greater than 30 minutes Exam Vital Signs Temp Pulse Resp BP Pulse Ox O2 Del Method O2 Flow Rate 97.0 F 68 18 111/56 L 95 Room Air 2 04/02/25 08:00 04/02/25 08:59 04/02/25 08:59 04/02/25 08:00 04/02/25 08:59 04/02/25 08:00 03/30/25 17:22 Narrative Exam Gen: No acute distress HEENT: NCAT, PERRLOU, Sclera anicteric, conjunctiva noninjected, oral mucosa moist without erythema Neck: Supple, full range of motion, no LAD CV: RRR, no murmurs, rubs or gallops Resp: CTAB/L, no wheezing, rhonchi or rales GI: abdomen soft, bowel sounds noted, no tenderness to palpation, no guarding or rebound tenderness, no organomegaly Skin: clean, dry, no rashes, lesions or ecchymosis Ext: no clubbing, cyanosis, or edema Neuro: A&O x3, CN II- XII intact b/l, no focal neurological deficits Discharge Plan Plan Patient Disposition: Xfer Other Facility Pt Being Transferred to: Other-Specify in comment Disposition Comment: Discharge to [facility] Patient condition on transfer: Stable Care Plan Goals: * Follow-up with PCP within 1-2 weeks of discharge. * Recommended outpatient GI workup for liver cirrhosis, discussed with PCP. * May need long-term prophylactic ABX for recurrent UTI, please discuss with your PCP. * Return to Emergency Room if symptoms persist, worsen, or new symptoms develop. * Encourage oral hydration. * Continue taking CEFUROXIME for pneumonia, twice daily for 3 more days. * Continue taking medications as prescribed below. Prescriptions/Referrals Prescriptions/Med Rec: New cefuroxime axetil 250 mg tablet 250 mg PO BID 3 Days Qty: 6 0RF Continued ASPIRIN (ASA 81MG EC) 81 MG TABLET, ENTERIC COATED 81 mg PO DAILY Qty: 0 divalproex [Depakote] 250 MG tablet,delayed release (DR/EC) 250 mg PO BID Qty: 0 potassium chloride [Klor-Con 8] 8 MEQ tablet extended release 8 meq PO QDAY Qty: 0 oxybutynin chloride 5 MG tablet 5 mg PO QDAY Qty: 0 lactulose [Enulose] 10 G/15 ML solution 30 gm PO TID PRN (Reason: CONSTIPATION) 30 Days Qty: 0 polyethylene glycol 3350 [Miralax] 12 EA powder in packet 1 pkt PO QDAY Qty: 0 metformin 500 mg tablet 500 mg PO QDAY levothyroxine 88 mcg tablet 88 mcg PO QDAY lithium carbonate 300 mg capsule 300 mg PO QDAY docusate sodium 100 mg capsule 100 mg PO QDAY cholecalciferol (vitamin D3) [Vitamin D3] 50 mcg (2,000 unit) capsule 50 mcg PO QDAY sennosides [senna] 8.6 mg tablet 8.6 mg PO HS PRN (Reason: constipation) Patient Comments: 2 tablets acetaminophen 325 mg tablet 325 mg PO Q4H PRN (Reason: pain) Patient Comments: 2 tablets Austedo XR Titration Kt(Wk1-4) 12-18-24-30 mg tablet, Ext Rel 24hr dose pack PO HS Discontinued nitrofurantoin monohyd/m-cryst [Macrobid] 100 mg capsule 100 mg PO Q12H 5 Days Qty: 10 0RF Rx Instructions: must administer with a meal/food Referrals: Davon Solorio MD [Primary Care Provider] - Patient/Caregiver Discharge Instructions Education Materials: Abdominal Pain, Urinary Tract Infections in Women, Understanding Urinary Tract ..., Preventing Common Respiratory ... Print Language: Azerbaijani Stand Alone Forms: Rosanna Award Info., Patient Portal Info Letter Discharge Order Discharge Orders: Discharge (Routine); Ordered 04/02/25 Ordered By: Anai Slater Quality Discharge Quality Measures VTE prophylaxis
[2025-04-02 10:55] VITALS: BP 124/70; PULSE 69; RESP 20; TEMP 36.4; O2SAT 96
--- NOTE | 2025-04-02 15:33 | PC.SS ---
rounding note: Patient d/c'd early this morning back to [facility].
== END 2025-04-02 11:10 | disposition other institution (70) | DRG 871 ==
LOC: SERX 17:13 → SERHOLD 18:40 → S2NX 22:17 → S3NX 04-02 04:56
PROVIDERS: Admitting Provider Internal Medicine; Emergency Provider Emergency Medicine; PCP Family Medicine; Visit Provider Internal Medicine
DX: A41.9 Sepsis, unspecified organism (principal); G93.41 Metabolic encephalopathy; J18.9 Pneumonia, unspecified organism; K85.90 Acute pancreatitis without necrosis or infection, unspecified; N39.0 Urinary tract infection, site not specified; R18.8 Other ascites; E87.20 Acidosis, unspecified; E87.1 Hypo-osmolality and hyponatremia; F31.9 Bipolar disorder, unspecified; E11.9 Type 2 diabetes mellitus without complications; Z87.440 Personal history of urinary (tract) infections; K59.00 Constipation, unspecified; K74.60 Unspecified cirrhosis of liver; E86.0 Dehydration; E03.9 Hypothyroidism, unspecified; F79 Unspecified intellectual disabilities; K59.09 Other constipation; R62.50 Unspecified lack of expected normal physiological development in childhood; R16.2 Hepatomegaly with splenomegaly, not elsewhere classified; Z79.82 Long term (current) use of aspirin; Z79.84 Long term (current) use of oral hypoglycemic drugs; Z79.890 Hormone replacement therapy; Z79.899 Other long term (current) drug therapy; Z88.6 Allergy status to analgesic agent; Z88.1 Allergy status to other antibiotic agents
CPT/HCPCS: 36415; 70450; 71045; 76705; 80053; 80074; 80178; 80307; 80320; 81001; 82140; 82803; 83036; 83605; 83735; 83880; 84100; 84145; 84439; 84443; 84484; 85025; 85610; 86850; 86900; 86901; 87040; 87086; 87502; 87811; 89220; 93005; 96361; 96365; 96366; 96375; 99284; J0696; J1644; J1815; J2470; J2543; J3370; J7030; J7040; S8037; 74181; 94640; A9270; G0480

== ENCOUNTER 2025-04-30 10:02 | Emergency (ER) | payer MEDICARE, MEDICAID, SELFPAY ==
[2025-04-30 10:06] VITALS: BP 111/70; PULSE 118; RESP 18; TEMP 36.6; O2SAT 95
[2025-04-30 10:46] LABS: Collection Type, Urine Catheter
[2025-04-30 11:01] LABS: Bacteria,Urine 3+; Bilirubin,Urine 1+ (Negative); Blood,Urine 3+ (Negative); Color,Urine Drk-Yellow (Lt Yel-Yel); Glucose, Urine 2+ (Negative); Ketones,Urine Negative (Negative); Leukocyte Esterase,Urine Positive (Negative); Nitrite,Urine Positive (Negative); PH,Urine 6.0 (5.0-7.0); Protein,Urine 1+ (Neg - Trace); RBC,Urine 118 /hpf (0-3); Specific Gravity,Urine 1.018 (1.001-1.035); Squamous Epithelial Cell,Urine 3 /hpf (0-5); Urobilinogen,Urine Negative mg/dL (0.0-1.0); WBC,Urine 1569 /hpf (0-5)
[2025-04-30 11:08] LABS: Clarity,Urine Cloudy (Clear/Hazy)
[2025-04-30] MEDS: SODIUM CHLORIDE 0.9% 1000 ML 1,000 ML 999 ML IV (11:26)
[2025-04-30] MEDS: cefTRIAXone 2 GM in SODIUM CHLORIDE 0.9% (Popper) 50 ML IV (11:29)
[2025-04-30 11:30] VITALS: BMI 24.6
--- NOTE | 2025-04-30 11:36 | PD.EDADULT ---
ED General RME/HPI General Chief complaint: Abdominal Pain Stated complaint: BLOOD IN URINE Time Seen by Provider: 04/30/25 10:49 Arrival date/time: 04/30/25 10:02 Limitations: no limitations RME / HPI RME / HPI narrative: 59 year old female with history of intellectual disability, diabetes, and bipolar disorder, presents to the ED BIBA for evaluation of blood in urine. According to medics, the patient was at a workshop earlier today when staff noticed blood in the toilet after she used the restroom. Staff also reported that the patient was not behaving her usual self and noticed yellowing of the eyes. Caregiver reports that the patient was diagnosed with a urinary tract infection last week and was prescribed Nitrofurantoin. However, due to issues with the pharmacy, the patient has yet to tart the antibiotic. No fever, abdominal pain, nausea, vomiting, or dysuria were reported. Related Data Home Medications ?Medication ?Instructions ?Recorded ?Confirmed ASPIRIN (ASA 81MG EC) 81 mg PO DAILY ##0 11/12/13 04/02/25 divalproex 250 mg tablet,delayed 250 mg PO BID #0 tabs 11/12/13 04/02/25 release (Depakote) oxybutynin chloride 5 mg tablet 5 mg PO QDAY ##0 11/12/13 04/02/25 potassium chloride 8 mEq 8 meq PO QDAY #0 tabs 11/12/13 04/02/25 tablet,extended release (Klor-Con) lactulose 10 gram/15 mL oral 30 gm PO TID PRN CONSTIPATION 30 11/15/13 04/02/25 solution (Enulose) days ##0 polyethylene glycol 3350 17 gram 1 pkt PO QDAY ##0 02/17/17 04/02/25 oral powder packet (Miralax) cholecalciferol (vitamin D3) 50 50 mcg PO QDAY 10/28/23 04/02/25 mcg (2,000 unit) capsule (Vitamin D3) docusate sodium 100 mg capsule 100 mg PO QDAY 10/28/23 04/02/25 levothyroxine 88 mcg tablet 88 mcg PO QDAY 10/28/23 04/02/25 lithium carbonate 300 mg capsule 300 mg PO QDAY 10/28/23 04/02/25 metformin 500 mg tablet 500 mg PO QDAY 10/28/23 04/02/25 acetaminophen 325 mg tablet 325 mg PO Q4H PRN pain 04/02/25 04/02/25 deutetrabenazine 12 mg-18 mg-24 ea PO HS 04/02/25 mg-30 mg tablet, ER 24 hr dose pack (Austedo XR Titration (Week 1-4)) sennosides 8.6 mg tablet (senna) 8.6 mg PO HS PRN constipation 04/02/25 04/02/25 Allergies Allergy/AdvReac Type Severity Reaction Status Date / Time tetracycline Allergy Unknown Verified 10/28/23 12:52 ibuprofen AdvReac Unknown Verified 10/28/23 12:52 Review of Systems Review of Systems ROS Unobtainable: unobtainable due to medical condition Past Medical History Past Medical History NEUROLOGIC: Positive Neurological Disorders CARDIAC: Positive Hypertension GASTROINTESTINAL: Positive Gastrointestinal Disorders MUSCULOSKELETAL: Positive Musculoskeletal Disorders ENDOCRINE: Positive Diabetes Mellitus Type 2 and Hypothyroidism PSYCHO/SOCIAL: Positive Bipolar Disorder OTHER HISTORY: Positive Developmental Delay Social History SMOKING STATUS: Never smoker SUBSTANCE USE: does not use ED Exam General Limitations: Present no limitations General appearance: Present alert and other (Developmentally disabled, good eye contact ) Head Head exam: Present atraumatic, normocephalic and normal inspection Eye Eye exam: Present normal appearance, PERRL and EOMI ENT ENT exam: Present normal exam, normal oropharynx and mucous membranes moist Neck Neck exam: Present normal inspection, full ROM and trachea midline Chest Chest inspection: Present normal inspection and symmetric chest wall rise Respiratory Respiratory exam: Present normal lung sounds bilaterally Cardiovascular Cardiovascular exam: Present regular rate, normal rhythm and normal heart sounds Abdominal Exam Abdominal exam: Present soft, tenderness (1+ suprapubic tenderness) and normal bowel sounds Extremities Exam Extremities exam: Present normal inspection and full ROM Back Exam Back exam: Present normal inspection and full ROM Neurological Exam Neurological exam: Present CN II-XII intact and other (Developmentally disabled, good eye contact ) Psychiatric Psychiatric exam: Present normal affect and normal mood Skin Skin exam: Present warm, dry, intact and normal color Course Quality Measures none Orders Category Date Time Status Dining Server NOW Care 04/30/25 10:56 Active Continuous Pulse Oximetry NOW Care 04/30/25 10:56 Completed Insert IV NOW Care 04/30/25 10:[address] chest abdomen pelvis wo Stat Exams 04/30/25 19:58 Completed NM HIDA w pharm Stat Exams 04/30/25 13:50 Ordered US gall bladder Stat Exams 04/30/25 22:56 Completed CBC Stat Lab 04/30/25 11:44 Completed Comprehensive Metabolic Panel Stat Lab 04/30/25 11:28 Completed Partial Thromboplastin Time Stat Lab 04/30/25 11:44 Completed Prothrombin Time with INR Stat Lab 04/30/25 11:44 Completed Urinalysis Stat Lab 04/30/25 10:42 Completed Urine Culture Stat Lab 04/30/25 10:42 Received Sod Polystyrene Sulfon Susp [Kayexalate Susp] Med 05/01/25 00:29 Discontinued 30 gm PO X1 ONE Sodium Chloride 0.9% 1000 ml [Ns] 1,000 ml Med 04/30/25 19:56 Discontinued IV 200 mls/hr Sodium Chloride 0.9% 1000 ml [Ns] 1,000 ml Med 04/30/25 10:56 Discontinued IV 999 mls/hr cefTRIAXone [Rocephin] 2 gm Med 04/30/25 10:56 Discontinued SODIUM CHLORIDE 0.9% (Popper) [Ns 0.9% (P)] 50 ml IV X1 metroNIDAZOLE/NS 500 MG IVPB [Flagyl 500 mg IV] Med 05/01/25 00:30 Discontinued 500 mg in 100 ml IV X1 Vital Signs Vital signs: Vital Signs Temperature 97.8 F 04/30/25 10:06 Pulse Rate 118 H 04/30/25 10:06 Respiratory Rate 18 04/30/25 10:06 Blood Pressure 111/70 04/30/25 10:06 Pulse Oximetry (%) 95 04/30/25 10:06 Oxygen Delivery Method Room Air 04/30/25 10:06 Pulse ox is 95% on room air which is adequate. Discharge Plan Prescriptions/Referrals Prescriptions/Med Rec: No Action ASPIRIN (ASA 81MG EC) 81 MG TABLET, ENTERIC COATED 81 mg PO DAILY Qty: 0 divalproex [Depakote] 250 MG tablet,delayed release (DR/EC) 250 mg PO BID Qty: 0 potassium chloride [Klor-Con 8] 8 MEQ tablet extended release 8 meq PO QDAY Qty: 0 oxybutynin chloride 5 MG tablet 5 mg PO QDAY Qty: 0 lactulose [Enulose] 10 G/15 ML solution 30 gm PO TID PRN (Reason: CONSTIPATION) 30 Days Qty: 0 polyethylene glycol 3350 [Miralax] 12 EA powder in packet 1 pkt PO QDAY Qty: 0 metformin 500 mg tablet 500 mg PO QDAY levothyroxine 88 mcg tablet 88 mcg PO QDAY lithium carbonate 300 mg capsule 300 mg PO QDAY docusate sodium 100 mg capsule 100 mg PO QDAY cholecalciferol (vitamin D3) [Vitamin D3] 50 mcg (2,000 unit) capsule 50 mcg PO QDAY sennosides [senna] 8.6 mg tablet 8.6 mg PO HS PRN (Reason: constipation) Patient Comments: 2 tablets acetaminophen 325 mg tablet 325 mg PO Q4H PRN (Reason: pain) Patient Comments: 2 tablets Austedo XR Titration Kt(Wk1-4) 12-18-24-30 mg tablet, Ext Rel 24hr dose pack PO HS Referrals: Davon Solorio MD [Primary Care Provider] - In 1 week Problem List Clinical Impression: Cholecystitis, UTI (urinary tract infection), LFT elevation Patient/Caregiver Discharge Instructions Print Language: Cambodian [facility] Narrative Sign out note: 1800: Patient signed out to Dr. Monge pending HIDA scan. [facility] hospital course: ICindy am scribing for and in the presence of Dr. Dan. Clinical Information Provided by EMS and guardian (caregiver) Medical Records Reviewed [facility] I reviewed admission from 03/30/2025 through 04/02/2025 Meds/Rx Considered, not Ordered None Labs/Rad/Tests considered, not Ordered None Chronic Illness/Social Conditions which may negatively complicate care or outcome(s)-explain: Gravely disabled EKG EKG not done Lab Interpretation Labs: interpreted by pr Lab(s) interpretation(s): elevated transaminase UA shows UTI Medication Administration(s) Medication Administration History Discontinued Medications Sodium Chloride (Ns) 1,000 mls @ 999 mls/hr IV .Q1H1M ONE Stop: 04/30/25 11:56 Last Infusion: 04/30/25 12:45 Dose: Infused Documented By: Admin: 04/30/25 11:26 Dose: 999 mls/hr Documented By: MYLA Ceftriaxone Sodium 2 gm/ (Sodium Chloride) 50 mls @ 100 mls/hr IV X1 ONE Stop: 04/30/25 11:25 Last Infusion: 04/30/25 12:20 Dose: Infused Documented By: Admin: 04/30/25 11:29 Dose: 100 mls/hr Documented By: MYLA Sodium Chloride (Ns) 1,000 mls @ 200 mls/hr IV .Q5H ONE Stop: 05/01/25 00:55 Last Admin: 04/30/25 23:08 Dose: 200 mls/hr Documented By: GORDON Metronidazole (Flagyl 500 Mg Iv) 500 mg in 100 mls @ 100 mls/hr IV X1 ONE Stop: 05/01/25 01:29 Last Admin: 05/01/25 02:42 Dose: 100 mls/hr Documented By: GORDON Sodium Polystyrene Sulfonate (Sod Polystyrene Sulfon Susp 15 Gm/60 Ml Btl) 30 gm PO X1 ONE Stop: 05/01/25 00:30 Last Admin: 05/01/25 02:38 Dose: Not Given Documented By: GORDON Non-Admin Reason: Discontinued See above
[2025-04-30 11:38] VITALS: PULSE 62; RESP 14
[2025-04-30 12:10] LABS: Alanine Aminotransferase 215 U/L (10-49); Albumin, Serum 3.8 gm/dL (3.5-5.0); Albumin/Globulin Ratio 1.4 (1.2-2.2); Alkaline Phosphatase 185 U/L (46-116); Anion Gap 9 (7-16); Aspartate Amino Transferase 174 U/L (0-34); BUN/Creatinine Ratio 23 Ratio (12-20); Bilirubin,Total 1.7 mg/dL (0.3-1.2); Blood Urea Nitrogen 18 mg/dL (9-23); Calcium 9.1 mg/dL (8.3-10.6); Calcium (Corrected) 9.3 mg/dL (8.5-10.1); Carbon Dioxide 29.0 mMol/L (20.0-31.0); Chloride 105 mMol/L (98-107); Creatinine (Component) 0.8 mg/dL (0.6-1.3); Estimated Creatinine Clearance 58.9 mL/min (>60); Globulin 2.7 gm/dL (2.3-3.5); Glucose 207 mg/dL (74-106); Osmolality,Calculated 292 (275-295); Potassium 4.7 mMol/L (3.4-5.1); Sodium 143 mMol/L (136-145); Total Protein 6.5 gm/dL (5.7-8.2); eGFR > 60 See Note
[2025-04-30 12:13] LABS: Basophils # (Auto) 0.0 Thou/mm3 (0.0-0.2); Basophils % (Auto) 0 % (0-2.5); Eosinophils # (Auto) 0.0 Thou/mm3 (0.0-0.5); Eosinophils % (Auto) 1 % (0-10); Hematocrit 35.8 % (36.0-46.0); Hemoglobin 12.2 g/dL (12.0-16.0); Immature Granulocytes Auto 0.00 Thou/mm3 (0.00-0.00); Lymphocytes # (Auto) 0.7 Thou/mm3 (1.0-4.8); Lymphocytes % (Auto) 23 % (10-50); Mean Corpuscular HGB Conc 34.1 g/dl (31.0-37.0); Mean Corpuscular Hemoglobin 29.1 pg (25.0-35.0); Mean Corpuscular Volume 85 fL (80-100); Monocytes # (Auto) 0.1 Thou/mm3 (0.0-0.8); Monocytes % (Auto) 5 % (0-12); Neutrophils # (Auto) 2.1 Thou/mm3 (1.8-7.7); Neutrophils % (Auto) 71 % (37-80); Nucleated Red Blood Cell # 0.00 Thou/mm3 (0.00-0.00); Nucleated Red Blood Cell % 0 /100 WBC (0); RDW Standard Deviation 41.1 fL (36.4-46.3); Red Blood Count 4.19 Miln/mm3 (4.00-5.20)
--- NOTE | 2025-04-30 12:22 | PC.NURSE ---
Patient presents to ED via ambulance with c/o abd pain with frequent UTI, per caregiver patient was diagnosed with UTI and did not receive her antibiotic treatment for this diagnosis. Per caregiver [facility] Patient in room with caregiver, yelling out names and talkative with caregiver. Patient call light within reach, caregiver updated with plan of care.
[2025-04-30 12:24] LABS: INR 1.1 (0.9-1.3); Partial Thromboplastin Time 23.1 Seconds (22.0-36.0); Prothrombin Time 12.4 Seconds (9.0-12.2)
[2025-04-30 12:52] LABS: Platelet Count 34 Thou/mm3 (140-440)
[2025-04-30 12:56] LABS: White Blood Count 2.9 Thou/mm3 (3.6-11.0)
[2025-04-30 12:57] LABS: Slide Review Platelets confirmed
[2025-04-30 13:32] VITALS: BP 94/64; PULSE 59; RESP 20; TEMP 36.8; O2SAT 100
--- NOTE | 2025-04-30 13:50 | XR_ITS ---
Examination: HIDA, hepatobiliary radioisotope scan Date and time of exam: May 01, 2025 1052 hours INDICATIONS: Cirrhosis, splenomegaly, ascites, edema involving the gallbladder wall on gallbladder sonogram April 30, 2025 Technique: 5.6 mCi of 99M Hepatolite administered. Serial imaging then obtained from immediate through 60 minutes. Findings: Radioisotope activity within the liver is reasonably homogenous. Gallbladder, common bile duct small bowel activity noted Impression: There is minimal gallbladder wall activity, negative for complete cystic duct obstruction
[2025-04-30 16:57] VITALS: BP 119/72; PULSE 57; RESP 15; TEMP 35.7; O2SAT 98
--- NOTE | 2025-04-30 18:07 | PD.EDADDENDU ---
Emergency Room Addendum <Ayala Solorio - Last Filed: 05/01/25 03:04> Addendum Narrative: I took over the care from previous shift physician, Dr. Dan, at 1800 on 04/30/2025. See previous notes for complete H & P and ED course. I was asked to take over the patient pending HIDA scan. I reviewed all diagnostic test results. My review of the gallbladder ultrasound report is suspicious for acalculous cholecystitis. My review of the CT chest abdomen pelvis report is: - Mild vascular congestion - Mild splenomegaly - Markedly abnormal thickening of the urinary bladder wall Diagnoses include: Treatment here from me included Flagyl. At 6 AM on 05/01/2025, the care of the patient was transferred to Dr. Dan. During my watch, the patient remained stable. Patricio Monge MD <Patricio Monge MD - Last Filed: 05/01/25 03:19> Addendum Narrative: I took over the care from previous shift physician, Dr. Dan, at 1800 on 04/30/2025. See previous notes for complete H & P and ED course. I was asked to take over the patient pending HIDA scan. I reviewed all diagnostic test results. My review of the gallbladder ultrasound report is suspicious for acalculous cholecystitis. My review of the CT chest abdomen pelvis report is possible acute cholecystitis. Blood tests remarkable for WBC 2.9, total bili 1.7, AST 174, ALT 2015, alk phos 185. UA showed positive nitrite, positive leukocyte Estrace, 118 RBC, 1569 WBC, and 3+ bacteria. Diagnoses include: UTI and Cholecystitis and LFT elevation. Treatment here included IV fluid, Rocephin, and Flagyl. At 6 AM on 05/01/2025, the care of the patient was transferred to Dr. Dan, with HIDA scan pending. During my watch, the patient remained stable. Patricio Monge MD
--- NOTE | 2025-04-30 19:30 | PC.NURSE ---
Pt resting in bed with no s/s of pain or acute distress noted, pt home care rn in noted to be at bedside with no question for screen writer at this time
--- NOTE | 2025-04-30 19:58 | XR_ITS ---
Examination: CT chest, without intravenous contrast. CT abdomen, without intravenous contrast. CT pelvis, without intravenous contrast. 2-D sagittal and coronal reconstructions. 3-D reconstructions. Date and time of exam:April 30, 20252016 hours Comparison November 18, 2013 INDICATIONS: Chest pain shortness of breath abdominal pain today CTDI vol (mgy) 10.1 DLP (MGycm)677 Technique: Multiple CT images, 3.0 mm slice thickness, obtained chest, abdomen, pelvis, with the high-resolution 64 slice scanner.. Sagittal and coronal 2-D reconstructions are obtained. 3-D reconstructions Low dose protocols were performed. One or more of the following dose reduction techniques were used; automated exposure control, adjustment of the mA and/or KV according to patient size, use of iterative reconstruction technique. Findings: No thoracic aortic aneurysm dilatation Pulmonary artery segments are not enlarged Mild vascular congestion No pulmonary edema or pneumonia No focal liver lesions, mild hepatomegaly Splenomegaly AP dimension 13.5 cm Gallbladder wall appears thickened No pancreatic mass or edema No renal or ureteral calculi, no hydronephrosis No pericecal inflammatory change Markedly abnormal thickening of the urinary bladder wall No pelvic mass Prominent thoracic dextroscoliosis and lumbar levoscoliosis IMPRESSION: Mild vascular congestion Mild splenomegaly Recommend hepatobiliary sonography to exclude acute cholecystitis Markedly abnormal thickening of the urinary bladder wall, differential would include cystitis, bladder carcinoma, recommend urology consultation
--- NOTE | 2025-04-30 21:00 | PC.NURSE ---
pt continues to rest with no s/s of pain or acute distress, no changes in pt condition from previous assessment
--- NOTE | 2025-04-30 22:56 | XR_ITS ---
Examination: Abdomen sonogram, Limited Date and time of exam: April 30, 2025, 11:28 PM. INDICATIONS: Abdominal pain, gallbladder wall thickening on CT examination today Technique: Real-time weaver scale transabdominal sonographic images of the upper abdomen obtained. Findings: Negative for gallstones Gallbladder wall is thickened with trace edema, image 3, measuring up to 0.4 cm Common bile duct 0.2 cm Pancreatic head 2.9 cm Liver 13.1 cm Normal hepatopedal portal venous flow Patent IVC IMPRESSION: Suspicious for acalculous cholecystitis, recommend HIDA scan or MRCP follow-up
--- NOTE | 2025-04-30 23:00 | PC.NURSE ---
Pt continues to rest with no s/s of pain or acute distress noted, no changes in pt condition from previous assessment, bed remains in low position and locked with side rails up x 2
[2025-04-30] MEDS: SODIUM CHLORIDE 0.9% 1000 ML 1,000 ML 200 ML IV (23:08)
--- NOTE | 2025-05-01 01:00 | PC.NURSE ---
pt continues to rest in bed with no s/s of pain or acute distress, bed remains in low position and locked with side rails up x 2
[2025-05-01] MEDS: metroNIDAZOLE/NS 500 MG IVPB 500 MG/100 ML BAG 100 MG IV (02:42)
--- NOTE | 2025-05-01 03:00 | PC.NURSE ---
pt resting in bed with no s/s of pain or acute distress, no changes from previous assessment
--- NOTE | 2025-05-01 05:00 | PC.NURSE ---
No s/s of pain or acute distress noted at this time, no changes from previous assessment
[2025-05-01 06:42] VITALS: BP 107/59; PULSE 65; RESP 16; TEMP 36.7; O2SAT 96
[2025-05-01 07:31] LABS: Lactate (Lactic Acid) 0.9 mMol/L (0.4-2.0)
[2025-05-01 07:35] LABS: Basophils # (Auto) 0.0 Thou/mm3 (0.0-0.2); Basophils % (Auto) 1 % (0-2.5); Eosinophils # (Auto) 0.1 Thou/mm3 (0.0-0.5); Eosinophils % (Auto) 4 % (0-10); Hematocrit 37.4 % (36.0-46.0); Hemoglobin 12.6 g/dL (12.0-16.0); Immature Granulocytes Auto 0.02 Thou/mm3 (0.00-0.00); Lymphocytes # (Auto) 1.0 Thou/mm3 (1.0-4.8); Lymphocytes % (Auto) 29 % (10-50); Mean Corpuscular HGB Conc 33.7 g/dl (31.0-37.0); Mean Corpuscular Hemoglobin 29.0 pg (25.0-35.0); Mean Corpuscular Volume 86 fL (80-100); Monocytes # (Auto) 0.3 Thou/mm3 (0.0-0.8); Monocytes % (Auto) 8 % (0-12); Neutrophils # (Auto) 2.1 Thou/mm3 (1.8-7.7); Neutrophils % (Auto) 59 % (37-80); Nucleated Red Blood Cell # 0.00 Thou/mm3 (0.00-0.00); Nucleated Red Blood Cell % 0 /100 WBC (0); RDW Standard Deviation 41.9 fL (36.4-46.3); Red Blood Count 4.34 Miln/mm3 (4.00-5.20); White Blood Count 3.6 Thou/mm3 (3.6-11.0)
[2025-05-01] MEDS: PIPER/TAZO 3.375 GM PREMIX 3.375 GM/50 ML BAG IV (07:42)
[2025-05-01 07:43] VITALS: BP 113/75; PULSE 57; RESP 16; TEMP 36.5; O2SAT 95
--- NOTE | 2025-05-01 07:45 | PC.NURSE ---
Report received from pm nurse, patient lying in [facility], patient develop mentally delayed, talkative, following some commands, however, says random words, skin is cool, dry and pink, call light within reach. Per pm nurse, careprovider left and will be back later this morning.
--- NOTE | 2025-05-01 07:51 | PC.NURSE ---
Spoke with Shaista Morrell, primary and transcription typist of care facility, informed her that patient needs care provider at bedside, do to patient trying to pull her IVl out and needing treatment, per Shaista she will send careprovider to be with her shortly. Patient awaiting to get HIDA scan, will call tech to see when test will be performed.
[2025-05-01 08:11] LABS: Alanine Aminotransferase 147 U/L (10-49); Albumin, Serum 3.2 gm/dL (3.5-5.0); Albumin/Globulin Ratio 1.3 (1.2-2.2); Alkaline Phosphatase 150 U/L (46-116); Anion Gap 6 (7-16); Aspartate Amino Transferase 94 U/L (0-34); BUN/Creatinine Ratio 14 Ratio (12-20); Bilirubin,Total 0.7 mg/dL (0.3-1.2); Blood Urea Nitrogen 10 mg/dL (9-23); Calcium 8.7 mg/dL (8.3-10.6); Calcium (Corrected) 9.3 mg/dL (8.5-10.1); Carbon Dioxide 27.3 mMol/L (20.0-31.0); Chloride 113 mMol/L (98-107); Creatinine (Component) 0.7 mg/dL (0.6-1.3); Estimated Creatinine Clearance 67.3 mL/min (>60); Globulin 2.5 gm/dL (2.3-3.5); Glucose 80 mg/dL (74-106); Osmolality,Calculated 288 (275-295); Potassium 4.4 mMol/L (3.4-5.1); Procalcitonin 0.13 ng/ml (0.0-0.49); Sodium 146 mMol/L (136-145); Total Protein 5.7 gm/dL (5.7-8.2); eGFR > 60 See Note
[2025-05-01 08:27] LABS: Platelet Count 68 Thou/mm3 (140-440)
--- NOTE | 2025-05-01 09:02 | PC.NURSE ---
Irina May at bedside.
--- NOTE | 2025-05-01 09:04 | PC.NURSE ---
Spoke with Colin casanova at [facility] states he will call me when he is ready to perform exam.
[2025-05-01 10:01] VITALS: BP 109/64; PULSE 58; RESP 19; TEMP 36.3; O2SAT 96
[2025-05-01 11:30] VITALS: BP 117/73; PULSE 55; RESP 19; TEMP 36.7; O2SAT 96
[2025-05-01 12:10] VITALS: BP 111/68; PULSE 57; RESP 23; TEMP 36.7; O2SAT 96
--- NOTE | 2025-05-01 12:33 | EDNOTE_ITS ---
Emergency Room Addendum Addendum Narrative: 0600: Care assumed from Dr. Monge, the previous shift emergency physician. Past medical, surgical, social and family history reviewed. Vitals and home medications reviewed. I will assume the care of the patient at this time, pending HIDA scan. Please refer to the emergency department record for history and examination from initial visit.?The following addendum documentation note is intended to reflect any pending information, findings, or radiology results not included in the patient?s initial chart. Patient has remained stable through ED course. We reviewed all the results, analysis, and treatment plan with patient and caregiver. Strict return pr ecautions were outlined. Patient was discharged in stable condition. RADIOLOGY Ordering Physician: Gallito Dan MD Date of Service: 04/30/25 Procedure(s): NM TANIKA w pharm Accession Number(s): [id number] cc: Gallito Dan MD; Davon Solorio MD; Brock Oliva MD~ Examination: HIDA, hepatobiliary radioisotope scan Date and time of exam: May 01, 2025 1052 hours INDICATIONS: Cirrhosis, splenomegaly, ascites, edema involving the gallbladder wall on gallbladder sonogram April 30, 2025 Technique: 5.6 mCi of 99M Hepatolite administered. Serial imaging then obtained from immediate through 60 minutes. Findings: Radioisotope activity within the liver is reasonably homogenous. Gallbladder, common bile duct small bowel activity noted Impression: There is minimal gallbladder wall activity, negative for complete cystic duct obstruction Dictated By: Brock Oliva MD Signed By: <Electronically signed by Brock Oliva MD in [place]>05/01/25 1156
[2025-05-01 13:17] VITALS: BP 135/79; PULSE 67; RESP 14; TEMP 36.6; O2SAT 97
[2025-05-01 14:47] LABS: Slide Review Platelets confirmed
--- NOTE | 2025-05-03 10:44 | PC.NURSE ---
called Shaista caregiver, Shaista states pt. is doing great, eating, drinking and sleeping well, Shaista states no fever. Shaista states pt.'s primary Doctor, Dr. Solorio [phone] put her on Trimethoprim.
--- NOTE | 2025-05-03 11:25 | PC.NURSE ---
called Dr. Solorio, gave him culture results, Dr. Solorio stated pt. was on Macrobid/Nitrofurantoin prior to coming to the hospital. Offered to fax culture results and Dr. Solorio stated he can look at them and he will let Shaista know. Dr. Solorio stated thank you for letting him know.
== END 2025-05-01 13:26 | disposition home or self-care (01) ==
PROVIDERS: Emergency Provider Family Medicine; PCP Family Medicine
DX: K81.9 Cholecystitis, unspecified (principal); R16.1 Splenomegaly, not elsewhere classified; R09.89 Other specified symptoms and signs involving the circulatory and respiratory systems
CPT/HCPCS: 36415; 71250; 74176; 76705; 78227; 80053; 81001; 83605; 84145; 85025; 85610; 85730; 87077; 87086; 87186; 96361; 96365; 96367; 99284; A9537; J0696; J2543; J3490; J7030; J7050; J1836

== ENCOUNTER 2025-05-18 09:41 | Inpatient (IN) | payer MEDICARE, MEDICAID, SELFPAY ==
--- NOTE | 2025-05-18 | XR_ITS ---
MRI abdomen, without contrast. MRCP Date and time of exam: May 18, 2025, 1758 hours INDICATIONS: Contracted gallbladder today with gallbladder wall thickening on abdomen sonogram May 18, 2025 Technique: Multiple axial and coronal images of the abdomen have been obtained with the Siemens 1.5T MRI scanner. Images obtained included T1 weighted transverse images, T2-weighted transverse images, T2-weighted transverse images fat-suppressed, T2 weighted haste fat suppressed transverse images, T1 weighted images, in and out of phase images, T2-weighted coronal images, breath hold, T2 weighted haze coronal images as well as T2 weighted coronal thick slab images, MRCP. Findings: No focal liver defects Contracted gallbladder with mild gallbladder wall thickening Normal common hepatic common bile duct AP splenic dimension is 13 cm No peripancreatic edema The colon is distended with stool and air No hydronephrosis No ascites IMPRESSION: Contracted gallbladder with mild gallbladder wall thickening, the appearance should be clinically correlated, consider surgical consultation Normal common hepatic common bile duct
[2025-05-18 09:55] VITALS: BMI 20.7
--- NOTE | 2025-05-18 10:04 | XR_ITS ---
Examination: CT brain head without contrast. 2-D sagittal coronal reconstructions Date and time of exam:May 18, 2025 1043 hours INDICATIONS: Altered mental status today CTDI: vol (mGy):45.2 DLP: (mGycm):945 Technique: Multiple CT axial sections of the brain have been obtained, 5 mm slice thickness. Contrast has not been administered. 2-D sagittal, coronal reconstructions have been obtained Low dose protocols were performed. One or more of the following dose reduction techniques were used; automated exposure control, adjustment of the mA and/or KV according to patient size, use of iterative reconstruction technique. Findings: Moderate ventricular enlargement. Intra-axial or extra-axial hemorrhage density is not seen. No mass effect or midline shift Basal cisterns are not remarkable. Fourth ventricle is midline. Cranial vault intact. Impression: Negative for acute hemorrhage, mass effect or midline shift
--- NOTE | 2025-05-18 10:04 | XR_ITS ---
Examination: AP chest single view Technique one AP portable upright chest single view Date and time: May 18, 2025 1022 hours Shortness of breath today. FINDINGS: Bilateral mild perihilar pneumonia Normal heart size Prominent thoracic dextroscoliosis IMPRESSION:: Mild bilateral perihilar pneumonia
[2025-05-18 10:26] VITALS: BP 109/71; PULSE 88; RESP 19; TEMP 37.4; O2SAT 96
[2025-05-18 10:30] LABS: Base Excess, Venous 3 (-3-3); O2 Saturation, Venous 56 % (96-97); PCO2, Venous 58 mmHg (36-56); PO2, Venous 33 mmHg (15-58); pH, Venous 7.33 (7.33-7.66)
[2025-05-18 10:39] LABS: Collection Type, Urine Catheter; Squamous Epithelial Cell,Urine 0 /hpf (0-5)
[2025-05-18 10:49] LABS: Bacteria,Urine 4+; Bilirubin,Urine 1+ (Negative); Blood,Urine 3+ (Negative); Color,Urine Yellow (Lt Yel-Yel); Glucose, Urine Negative (Negative); Ketones,Urine Negative (Negative); Leukocyte Esterase,Urine Positive (Negative); Nitrite,Urine Positive (Negative); PH,Urine 6.5 (5.0-7.0); Protein,Urine 1+ (Neg - Trace); RBC,Urine 106 /hpf (0-3); Specific Gravity,Urine 1.016 (1.001-1.035); Urobilinogen,Urine Negative mg/dL (0.0-1.0); WBC,Urine 1099 /hpf (0-5)
[2025-05-18 10:58] LABS: Clarity,Urine Cloudy (Clear/Hazy); Culture Indicated,Urine Yes
[2025-05-18 11:07] LABS: Amphetamine/Methamp Scrn,U Negative (Negative); Barbiturate Screen,Urine Negative (Negative); Benzodiazepines Screen,Urine Negative (Negative); Benzoylecgonine Screen, Ur Negative (Negative); Fentanyl Screen,Urine Negative (Negative); Opiate Screen,Urine Negative (Negative); THC Screen,Urine Negative (Negative)
[2025-05-18 11:31] LABS: Basophils # (Auto) 0.0 Thou/mm3 (0.0-0.2); Basophils % (Auto) 0 % (0-2.5); Eosinophils # (Auto) 0.0 Thou/mm3 (0.0-0.5); Eosinophils % (Auto) 1 % (0-10); Hematocrit 38.5 % (36.0-46.0); Hemoglobin 12.8 g/dL (12.0-16.0); Immature Granulocytes Auto 0.01 Thou/mm3 (0.00-0.00); Lymphocytes # (Auto) 0.8 Thou/mm3 (1.0-4.8); Lymphocytes % (Auto) 14 % (10-50); Mean Corpuscular HGB Conc 33.2 g/dl (31.0-37.0); Mean Corpuscular Hemoglobin 29.0 pg (25.0-35.0); Mean Corpuscular Volume 87 fL (80-100); Monocytes # (Auto) 0.4 Thou/mm3 (0.0-0.8); Monocytes % (Auto) 8 % (0-12); Neutrophils # (Auto) 4.6 Thou/mm3 (1.8-7.7); Neutrophils % (Auto) 78 % (37-80); Nucleated Red Blood Cell # 0.00 Thou/mm3 (0.00-0.00); Nucleated Red Blood Cell % 0 /100 WBC (0); Platelet Count 84 Thou/mm3 (140-440); RDW Standard Deviation 42.1 fL (36.4-46.3); Red Blood Count 4.42 Miln/mm3 (4.00-5.20); White Blood Count 5.9 Thou/mm3 (3.6-11.0)
[2025-05-18 11:37] LABS: INR 1.2 (0.9-1.3); Prothrombin Time 12.8 Seconds (9.0-12.2)
[2025-05-18 11:44] LABS: Ammonia 12 uMol/L (11-32)
--- NOTE | 2025-05-18 11:49 | PD.EDAMS ---
Altered Mental Status RME/HPI General Chief Complaint: Altered Mental Status Stated Complaint: AMS Time Seen by Provider: 05/18/25 10:04 Arrival date/time: 05/18/25 09:41 Limitations: language barrier (nonverbal, but mumbles which is her normal) RME / HPI RME / HPI narrative: DR. GAINES MAIN ED EVALUATION: 59-year-old female with past medical history of developmental delay, diabetes, bipolar disorder, and frequent urinary tract infections (currently on antibiotics) presents to the Emergency Department [facility] from care home with altered mental status. Per caregiver, patient has been ?more sleepy than normal.? Patient is baseline nonverbal but typically mumbles; today, her responsiveness is decreased and has been sleepier. Caregiver states patient has been unable to clear recent UTI despite antibiotic treatment. Related Data Home Medications ?Medication ?Instructions ?Recorded ?Confirmed ASPIRIN (ASA 81MG EC) 81 mg PO DAILY ##0 11/12/13 05/18/25 divalproex 250 mg tablet,delayed 1,500 mg PO HS #0 tabs 11/12/13 05/18/25 release (Depakote) oxybutynin chloride 5 mg tablet 5 mg PO QDAY ##0 11/12/13 05/19/25 potassium chloride 8 mEq 8 meq PO QDAY #0 tabs 11/12/13 05/18/25 tablet,extended release (Klor-Con) lactulose 10 gram/15 mL oral 30 g PO DAILY 30 days ##0 11/15/13 05/19/25 solution (Enulose) polyethylene glycol 3350 17 gram 1 pkt PO QDAY ##0 02/17/17 05/19/25 oral powder packet (Miralax) cholecalciferol (vitamin D3) 50 50 mcg PO QDAY 10/28/23 05/18/25 mcg (2,000 unit) capsule (Vitamin D3) docusate sodium 100 mg capsule 200 mg PO QDAY 10/28/23 05/19/25 levothyroxine 88 mcg tablet 88 mcg PO QDAY 10/28/23 05/18/25 lithium carbonate 300 mg capsule 300 mg PO HS 10/28/23 05/18/25 metformin 500 mg tablet 500 mg PO QDAY 10/28/23 05/18/25 acetaminophen 325 mg tablet 650 mg PO Q4H PRN pain 04/02/25 05/19/25 sennosides 8.6 mg tablet (senna) 17.2 mg PO HS 04/02/25 05/19/25 trimethoprim 100 mg tablet 100 mg PO DAILY 05/18/25 05/18/25 cefuroxime axetil 500 mg tablet 500 mg PO BID 05/19/25 05/19/25 Allergies Allergy/AdvReac Type Severity Reaction Status Date / Time tetracycline Allergy Unknown Verified 05/18/25 10:05 ibuprofen AdvReac Unknown Verified 05/18/25 10:05 Review of Systems Review of Systems Systems Reviewed: All systems reviewed, normal except as documented Past Medical History Past Medical History NEUROLOGIC: Positive Neurological Disorders CARDIAC: Positive Hypertension GASTROINTESTINAL: Positive Gastrointestinal Disorders MUSCULOSKELETAL: Positive Musculoskeletal Disorders ENDOCRINE: Positive Diabetes Mellitus Type 2 and Hypothyroidism PSYCHO/SOCIAL: Positive Bipolar Disorder OTHER HISTORY: Positive Developmental Delay Social History SMOKING STATUS: Never smoker SUBSTANCE USE: does not use ED Exam General Limitations: Present language barrier (nonverbal, but mumbles which is her normal) General appearance: Present in no apparent distress Head Head exam: Present atraumatic, normocephalic and normal inspection Eye Eye exam: Present normal appearance, PERRL and EOMI ENT ENT exam: Present normal exam, normal oropharynx and mucous membranes moist Neck Neck exam: Present normal inspection, full ROM and trachea midline Chest Chest inspection: Present normal inspection and symmetric chest wall rise Respiratory Respiratory exam: Present normal lung sounds bilaterally Cardiovascular Cardiovascular exam: Present regular rate, normal rhythm and normal heart sounds Abdominal Exam Abdominal exam: Present soft and normal bowel sounds External exam: Present other (wearing x2 briefs) Extremities Exam Extremities exam: Present normal inspection and full ROM Back Exam Back exam: Present normal inspection and full ROM Neurological Exam Neurological exam: Present other (at her baseline; nonverbal, but mumbles which is her normal) Psychiatric Psychiatric exam: Present normal affect and normal mood Skin Skin exam: Present warm, dry, intact and normal color Course Quality Measures none Orders Category Date Time Status Admit to Inpatient Status Routine Admission 05/18/25 20:46 Active Patient Condition Routine Admission 05/18/25 20:46 Ordered Activity as Tolerated Routine Care 05/18/25 20:48 Ordered Bedside Blood Glucose Q6HR Care 05/18/25 20:52 Active Bedside COVID-19 Antigen Test NOW Care 05/18/25 10:04 Active Bedside Influenza A&B Antigen Test NOW Care 05/18/25 10:04 Completed Continuous Pulse Oximetry NOW Care 05/18/25 20:46 Completed Flu & Pneumonia Vaccine Screen ONCE Care 05/18/25 20:52 Active Prado [Urinary Catheter] QS Care 05/18/25 11:00 Active MRI Screening NOW Care 05/18/25 13:22 Active Miscellaneous Nursing Order NOW Care 05/18/25 21:07 Active NPO after Midnight ONCE Care 05/18/25 21:06 Active Neuro Check Q4H Care 05/18/25 20:46 Active Notify provider NEEDED Care 05/18/25 20:46 Active Obtain weight daily Care 05/18/25 20:48 Completed Consult to General Surgery Stat Cons 05/18/25 21:05 Ordered Consult to Infectious Diseases Routine Cons 05/18/25 21:06 Ordered Diet NPO after Midnight Diet 05/19/25 00:01 Active CA echo doppler complete Routine Exams 05/18/25 20:[address] head/brain wo con Stat Exams 05/18/25 10:04 Completed CXR [XR chest 1V] Stat Exams 05/18/25 10:04 Completed MR MRCP Stat Exams 05/18/25 Completed US abdomen limited Stat Exams 05/18/25 13:22 Completed Acetaminophen Stat Lab 05/18/25 11:07 Completed Ammonia Stat Lab 05/18/25 11:07 Completed Blood Culture (Lab) Stat Lab 05/18/25 15:16 Received CBC AM DRAW Lab 05/19/25 04:48 Results CBC AM DRAW Lab 05/20/25 05:00 Ordered CBC AM DRAW Lab 05/21/25 05:00 Ordered CBC Stat Lab 05/18/25 11:24 Completed CMP [Comprehensive Metabolic Panel] AM DRAW Lab 05/19/25 04:48 Completed CMP [Comprehensive Metabolic Panel] AM DRAW Lab 05/20/25 05:00 Ordered CMP [Comprehensive Metabolic Panel] AM DRAW Lab 05/21/25 05:00 Ordered CMP [Comprehensive Metabolic Panel] Stat Lab 05/18/25 11:07 Completed Drug Screen,Urine Stat Lab 05/18/25 10:25 Completed Free T4 (Free Thyroxine) AM DRAW Lab 05/19/25 04:48 Completed INR [Prothrombin Time with INR] Stat Lab 05/18/25 11:07 Completed Lactic Acid [Lactate (Lactic Acid)] Stat Lab 05/18/25 15:16 Completed Procalcitonin Stat Lab 05/18/25 15:16 Completed Renal Function Panel Stat Lab 05/18/25 22:13 Completed Salicylate Stat Lab 05/18/25 11:07 Completed T4 (Thyroxine) Stat Lab 05/18/25 11:07 Completed Thyroid Stimulating Hormone Stat Lab 05/18/25 11:07 Completed Troponin I Stat Lab 05/18/25 11:07 Completed UA, C/S IF [Urinalysis, C/S if Indicated] Stat Lab 05/18/25 10:25 Completed Urine Culture Stat Lab 05/18/25 10:25 Received VBG [Venous Blood Gas] Stat Lab 05/18/25 10:12 Completed Acetaminophen Tab [Tylenol Tab] Med 05/18/25 20:46 Active 650 mg PO Q6H PRN Aspirin [Ecotrin] Med 05/19/25 09:00 Active 81 mg PO QDAY Azithromycin Inj [Zithromax Inj] 500 mg Med 05/18/25 13:25 Discontinued Sodium Chloride 0.9% 250 ml [Ns] 250 ml IV NOW Dextrose 50% Syr [D50w Syringe Abboject] Med 05/18/25 20:52 Active 25 ml IV Q15MIN PRN Dextrose 50% Syr [D50w Syringe Abboject] Med 05/18/25 20:52 Active 50 ml IV Q15MIN PRN Diazepam [Valium] Med 05/18/25 16:40 Discontinued 5 mg PO X1 STA Divalproex Sod EC [Depakote Ec] Med 05/18/25 21:00 Active 1,500 mg PO HS Glucagon Inj Med 05/18/25 20:52 Active 1 mg IM Q15MIN PRN Heparin Inj Med 05/18/25 21:00 Hold 5,000 unit SC Q12HR INSULIN LISPRO (AdmeLOG) [HumaLOG] Med 05/19/25 00:00 Active See Protocol SC Q6HR Lactulose Syrup [Enulose Syrup] Med 05/18/25 20:46 Active 30 gm PO QDAY PRN Levothyroxine Sodium [Synthroid] Med 05/19/25 06:00 Active 88 mcg PO ACBR [place] Carb Med 05/18/25 21:00 Active 300 mg PO HS Meropenem Inj [Merrem Inj] 1,000 mg Med 05/19/25 06:00 Active SODIUM CHLORIDE 0.9% (Popper) [Ns 0.9% (P)] 50 ml IV Q8HR Ondansetron Inj [Zofran Inj] Med 05/18/25 20:46 Active 4 mg IVP Q6H PRN cefTRIAXone/D5w 1gm IV premix [Rocephin/D5w 1gm IV Med 05/18/25 13:24 Discontinued premix] 1 gm in 50 ml IV NOW metroNIDAZOLE/NS 500 MG IVPB [Flagyl 500 mg IV] Med 05/18/25 14:48 Discontinued 500 mg in 100 ml IV NOW Code Status Routine Oth 05/18/25 20:46 Ordered Late Tray Request Routine Oth 05/18/25 21:06 Active Vital Signs Vital signs: Vital Signs Temperature 99.4 F 05/18/25 10:26 Pulse Rate 88 05/18/25 10:26 Respiratory Rate 19 05/18/25 10:26 Blood Pressure 109/71 05/18/25 10:26 Pulse Oximetry (%) 96 05/18/25 10:26 Oxygen Delivery Method Room Air 05/18/25 10:26 Altered Mental Status MDM Narrative MDM Narrative:: I, Stephania Domínguez am scribing for and in the presence of Dr. Gaines. Patient is a 59-year-old female with medical history notable for developmental delay,, seizure disorder, hypothyroidism, constipation is in the emergency department brought in by EMS for concerns for acute change in mentation. Vital signs and exam as listed. Concern for metabolic disturbance, urinary tract infection, dehydration, among others. Ordered labs CT brain,, chest x-ray. Patient not septic on presentation. Chest x-ray with mild perihilar pneumonia will treat. Labs without any acute hematologic abnormality. Patient has a history of chronic thrombocytopenia. Her platelets currently are higher than previously. VBG normal pH, PCO2 is 58. Patient with hyperkalemia potassium 5.2 will treat in the emergency department. Chloride is 108. Patient has chronic transaminitis, chronic hyperbilirubinemia. Current T. bili 1.8 AST 672, ALT 472 alk phos 236. Per chart review patient was recently seen in the emergency department earlier this month, had a right upper quadrant ultrasound that showed findings concerning for acalculous cholecystitis however had a HIDA scan that did not identify evidence of any acute abnormality. Right upper quadrant ultrasound with fluid around the gallbladder concerning for acute cholecystitis. Expanded patient's antibiotics with anaerobic coverage. Ordered MRCP. At 1800 hours, patient signed out to Dr. Gil pending MRCP. Patient data External records reviewed:: [facility] previous records and EMS form Clinical information provided by:: EMS and expert medical writer Social determinants that could affect healthcare access:: housing (care home) Patient has the following chronic illnesses:: developmental delay, diabetes, bipolar disorder, and frequent urinary tract infections (currently on antibiotics) How is presenting disease/condition affected by chronic disease/condition?: caused by Evaluation data The following diagnostics were reviewed and interpreted by me:: lab results and radiology exam(s) Lab and/or radiology exams considered but not ordered:: none Interpretation Summary: Procedure(s): CT head/brain wo con Accession Number(s): [id number] cc: Brock Oliva MD; NO PRIMARY/FAMILY,PHYSICIAN; Mariaa Gaines MD~ Examination: CT brain head without contrast. 2-D sagittal coronal reconstructions Date and time of exam:May 18, 2025 1043 hours INDICATIONS: Altered mental status today CTDI: vol (mGy):45.2 DLP: (mGycm):945 Technique: Multiple CT axial sections of the brain have been obtained, 5 mm slice thickness. Contrast has not been administered. 2-D sagittal, coronal reconstructions have been obtained Low dose protocols were performed. One or more of the following dose reduction techniques were used; automated exposure control, adjustment of the mA and/or KV according to patient size, use of iterative reconstruction technique. Findings: Moderate ventricular enlargement. Intra-axial or extra-axial hemorrhage density is not seen. No mass effect or midline shift Basal cisterns are not remarkable. Fourth ventricle is midline. Cranial vault intact. Impression: Negative for acute hemorrhage, mass effect or midline shift Dictated By: Brock Oliva MD Procedure(s): XR chest 1V Accession Number(s): [id number] cc: Brock Oliva MD; NO PRIMARY/FAMILY,PHYSICIAN; Mariaa Gaines MD~ Examination: AP chest single view Technique one AP portable upright chest single view Date and time: May 18, 2025 1022 hours Shortness of breath today. FINDINGS: Bilateral mild perihilar pneumonia Normal heart size Prominent thoracic dextroscoliosis IMPRESSION:: Mild bilateral perihilar pneumonia Dictated By: Brock Oliva MD Procedure(s): US abdomen limited Accession Number(s): [id number] cc: Brock Oliva MD; NO PRIMARY/FAMILY,PHYSICIAN; Mariaa Gaines MD~ Examination: Abdomen sonogram, Limited Date and time of exam: May 18, 2025 at 1332 hours INDICATIONS: Onset abdominal pain today Technique: Real-time weaver scale transabdominal sonographic images of the upper abdomen obtained. Findings: Contracted gallbladder Gallbladder wall 0.4 cm with fluid around the gallbladder Common bile duct 0.3 cm Pancreatic head 2.9 cm Liver 13.4 cm fatty infiltration Normal hepatopedal portal venous flow Patent IVC IMPRESSION: Contracted gallbladder, suspicious for cholecystitis, recommend MRCP or HIDA scan follow-up Dictated By: Brock Oliva MD Medications / Prescriptions Medications or Prescriptions considered but not ordered:: none Medication administrations:: Medication Administration History Acetaminophen (Acetaminophen 325 Mg Tablet) 650 mg PO Q6H PRN PRN Reason: PAIN SCALE 1-3 (mild Stop: 06/17/25 20:45 Aspirin (Aspirin Ec 81 Mg Tabec) 81 mg PO QDAY SINA Stop: 06/18/25 08:59 Dextrose (Dextrose 50%-Water Inj 50 Ml Syringe) 25 ml IV Q15MIN PRN PRN Reason: BG 50-70 responsive npo pt Stop: 06/17/25 20:51 Dextrose (Dextrose 50%-Water Inj 50 Ml Syringe) 50 ml IV Q15MIN PRN PRN Reason: BG <50 OR BG <70 & pt unresponsive Stop: 06/17/25 20:51 Divalproex Sodium (Divalproex Sod Ec 125 Mg Tabec) 1,500 mg PO HS SINA Stop: 06/17/25 20:59 Last Admin: 05/18/25 23:17 Dose: 1,500 mg Documented By: RB Glucagon (Glucagon Inj 1 Mg Vial) 1 mg IM Q15MIN PRN PRN Reason: BG <70, and no IV access Heparin Sodium (Porcine) (Heparin Sod Inj 5000 Unit/Ml Vial) 5,000 unit SC Q12HR SINA Stop: 06/01/25 20:59 Last Admin: 05/18/25 23:16 Dose: Not Given Documented By: RB Non-Admin Reason: hold per MD, low plt 84 Meropenem 1,000 mg/ Sodium (Chloride) 50 mls @ 100 mls/hr IV Q8HR SINA Stop: 05/26/25 05:59 Last Admin: 05/19/25 05:10 Dose: 100 mls/hr Documented By: RB Insulin Human Lispro (Insulin Lispro (Admelog) 1 Unit/0.01 Ml Unit) 0 unit SC Q6HR SINA; Protocol Stop: 06/18/25 00:00 Last Admin: 05/19/25 05:07 Dose: Not Given Documented By: RB Non-Admin Reason: Per Protocol Admin: 05/18/25 23:27 Dose: Not Given Documented By: RB Non-Admin Reason: Per Protocol Lactulose (Lactulose Syrup 20 Gm/30 Ml Udc) 30 gm PO QDAY PRN; Protocol PRN Reason: Constipation Stop: 06/18/25 08:59 Levothyroxine Sodium (Levothyroxine Sodium 88 Mcg Tablet) 88 mcg PO ACBR SINA Stop: 06/18/25 05:59 Last Admin: 05/19/25 05:08 Dose: Not Given Documented By: RB Non-Admin Reason: NPO [place] Carbonate ([place] Carb 150 Mg Capsule) 300 mg PO HS SINA Stop: 06/17/25 20:59 Last Admin: 05/18/25 23:17 Dose: 300 mg Documented By: RB Ondansetron HCl (Ondansetron Inj 2 Mg/Ml Inj 2 Ml) 4 mg IVP Q6H PRN; Protocol PRN Reason: NAUSEA OR VOMITING Stop: 06/17/25 20:45 Discontinued Medications Diazepam (Diazepam 5 Mg Tablet) 5 mg PO X1 STA Stop: 05/18/25 16:41 Last Admin: 05/18/25 16:46 Dose: 5 mg Documented By: TM Ceftriaxone Sodium/Dextrose (Rocephin/D5w 1gm Iv Premix) 1 gm in 50 mls @ 100 mls/hr IV NOW ONE Stop: 05/18/25 13:53 Last Infusion: 05/18/25 14:37 Dose: Infused Documented By: Admin: 05/18/25 14:07 Dose: 100 mls/hr Documented By: TM Azithromycin 500 mg/ Sodium (Chloride) 250 mls @ 500 mls/hr IV NOW ONE Stop: 05/18/25 13:54 Last Infusion: 05/18/25 14:38 Dose: Infused Documented By: Admin: 05/18/25 14:08 Dose: 500 mls/hr Documented By: TM Metronidazole (Flagyl 500 Mg Iv) 500 mg in 100 mls @ 200 mls/hr IV NOW ONE Stop: 05/18/25 15:17 Last Infusion: 05/18/25 16:55 Dose: Infused Documented By: Admin: 05/18/25 16:25 Dose: 200 mls/hr Documented By: TM Meropenem 1,000 mg/ Sodium (Chloride) 50 mls @ 100 mls/hr IV X1 ONE Stop: 05/18/25 21:59 Last Admin: 05/18/25 21:50 Dose: 100 mls/hr Documented By: CARLA see above if any Consultations Consultation(s) initiated? (list below): No Diagnosis Differential diagnosis altered mental status: sepsis and other (urosepsis, metabolic encephalopathy, and medication-induced AMS) Most likely diagnosis given after review of the tests above:: No official diagnoses at this time, still pending diagnostic tests. Patient signout to the restaurant shift supervisor provider. Admission Indicated Admission indicated?: not indicated Explain why admission is indicated or not indicated:: No final disposition plan at this time, still pending diagnostic tests. Patient signout to the restaurant shift supervisor provider. Admission Request Was there a request for admission?: No Disposition Plan Disposition Plan: other (specify) (Patient signed out to Dr. Gil, pending MRCP.) Discharge Plan Plan Patient Disposition: Admit Acute Care w/in Hospital Problem List Clinical Impression: Acute cholecystitis
[2025-05-18 12:01] LABS: T4 (Thyroxine) 11.1 mcg/dL (4.5-10.9)
[2025-05-18 12:05] LABS: Acetaminophen < 2.0 mcg/mL (10.0-20.0); Alanine Aminotransferase 472 U/L (10-49); Albumin, Serum 3.5 gm/dL (3.5-5.0); Albumin/Globulin Ratio 1.2 (1.2-2.2); Alkaline Phosphatase 236 U/L (46-116); Anion Gap 9 (7-16); Aspartate Amino Transferase 672 U/L (0-34); BUN/Creatinine Ratio 13 Ratio (12-20); Bilirubin,Total 1.8 mg/dL (0.3-1.2); Blood Urea Nitrogen 12 mg/dL (9-23); Calcium 8.9 mg/dL (8.3-10.6); Calcium (Corrected) 9.3 mg/dL (8.5-10.1); Carbon Dioxide 26.2 mMol/L (20.0-31.0); Chloride 108 mMol/L (98-107); Creatinine (Component) 0.9 mg/dL (0.6-1.3); Estimated Creatinine Clearance 63.7 mL/min (>60); Globulin 2.9 gm/dL (2.3-3.5); Glucose 141 mg/dL (74-106); Osmolality,Calculated 286 (275-295); Potassium 5.2 mMol/L (3.4-5.1); Salicylate < 3.0 mg/dL; Sodium 143 mMol/L (136-145); Thyroid Stimulating Hormone 1.90 uIU/mL (0.55-4.78); Total Protein 6.4 gm/dL (5.7-8.2); Troponin I < 0.002 ng/mL (0.0-0.045); eGFR > 60 See Note
[2025-05-18 12:22] VITALS: BP 91/77; PULSE 84; RESP 16; TEMP 37; O2SAT 95
--- NOTE | 2025-05-18 12:44 | PC.NURSE ---
SPOKE W/KIMMIE FROM FACILITY PT RESIDES AND UPDATED ON RESULTS AND CURRENT POC, IN AGREEMENT AND WOULD LIKE TO BE UPDATED IF PT IS TO BE ADMITTED OR NOT.
--- NOTE | 2025-05-18 13:22 | XR_ITS ---
Examination: Abdomen sonogram, Limited Date and time of exam: May 18, 2025 at 1332 hours INDICATIONS: Onset abdominal pain today Technique: Real-time weaver scale transabdominal sonographic images of the upper abdomen obtained. Findings: Contracted gallbladder Gallbladder wall 0.4 cm with fluid around the gallbladder Common bile duct 0.3 cm Pancreatic head 2.9 cm Liver 13.4 cm fatty infiltration Normal hepatopedal portal venous flow Patent IVC IMPRESSION: Contracted gallbladder, suspicious for cholecystitis, recommend MRCP or HIDA scan follow-up
[2025-05-18] MEDS: cefTRIAXone/D5w 1gm IV premix 1 GM/50 ML BAG IV (14:07)
[2025-05-18] MEDS: AZITHROMYCIN INJ 500 MG in SODIUM CHLORIDE 0.9% 250 ML 250 ML IV (14:08)
[2025-05-18 14:57] VITALS: BP 107/75; PULSE 74; RESP 16; TEMP 36.9; O2SAT 97
[2025-05-18 15:21] LABS: Lactate (Lactic Acid) 1.4 mMol/L (0.4-2.0)
[2025-05-18 15:50] LABS: Procalcitonin 0.35 ng/ml (0.0-0.49)
[2025-05-18] MEDS: metroNIDAZOLE/NS 500 MG IVPB 500 MG/100 ML BAG 200 MG IV (16:25)
[2025-05-18] MEDS: DIAZEPAM 5 MG TABLET PO (16:46)
--- NOTE | 2025-05-18 16:56 | PC.NURSE ---
spoke w/renato at mri, will come get pt in about 30 minutes, pt medicated for mri
[2025-05-18 17:55] VITALS: BP 101/68; PULSE 76; RESP 16; TEMP 37.4; O2SAT 94
--- NOTE | 2025-05-18 18:07 | EDNOTE_ITS ---
Emergency Room Addendum <Safia Dobson - Last Filed: 05/18/25 19:09> Addendum Narrative: 1800: Care assumed from Dr. Francisco (emergency physician). Past medical, surgical, social and family history reviewed. Vitals and home medications reviewed. Results and treatment plan discussed. I will assume the care of the patient at this time and will follow the patient, pending MRCP. The following addendum documentation note is intended to reflect any pending information, findings, or radiology results not included in the patient?s initial chart by the previous shift scribe. RADIOLOGY Choliangiopancreatography MRI: Findings: No focal liver defects Contracted gallbladder with mild gallbladder wall thickening Normal common hepatic common bile duct AP splenic dimension is 13 cm No peripancreatic edema The colon is distended with stool and air No hydronephrosis No ascites IMPRESSION: Contracted gallbladder with mild gallbladder wall thickening, the appearance should be clinically correlated, consider surgical consultation Normal common hepatic common bile duct 1903: Dr. Das made aware of the patient?s HPI, PMHx, lab and/or radiology results. Discussed treatment plan. Will consult an admission to the hospitalist. <Tyler Cardoza DO Jeffery - Last Filed: 05/18/25 19:14> Addendum Narrative: 1800: Care assumed from Dr. Francisco (emergency physician). Past medical, surgical, social and family history reviewed. Vitals and home medications reviewed. Results and treatment plan discussed. I will assume the care of the patient at this time and will follow the patient, pending MRCP. The following addendum documentation note is intended to reflect any pending information, findings, or radiology results not included in the patient?s initial chart by the previous shift scribe. RADIOLOGY Choliangiopancreatography MRI: Findings: No focal liver defects Contracted gallbladder with mild gallbladder wall thickening Normal common hepatic common bile duct AP splenic dimension is 13 cm No peripancreatic edema The colon is distended with stool and air No hydronephrosis No ascites IMPRESSION: Contracted gallbladder with mild gallbladder wall thickening, the appearance should be clinically correlated, consider surgical consultation Normal common hepatic common bile duct 190: Dr. Das made aware of the patient?s HPI, PMHx, lab and/or radiology results. Discussed treatment plan. Will consult an admission to the hospitalist. I have reviewed and interpreted labs. The patient's transaminases are much more elevated than they were on April 30. I reviewed the radiographic studies done on April 30 which included a gallbladder ultrasound that was suspicious for a calculus cholecystitis and a HIDA scan done on the same day that showed minimal wall activity. Today the gallbladder ultrasound was suspicious for cholecys titis and today an MRCP was obtained that showed a contracted gallbladder with gallbladder wall thickening with a normal common hepatic and common bile duct. Patient is already received Rocephin and Flagyl for antibiotics. The urine is infected. There is also thrombocytopenia. All of this was brought to the attention of general surgeon Dr. Das who will consult on the patient. I will contact the hospitalist service to admit this patient in the hospital for further treatment and evaluation for the diagnosis of acalculous cholecystitis, #2 UTI, #3 thrombocytopenia, #4 mental delay
--- NOTE | 2025-05-18 18:22 | PC.NURSE ---
[facility] both soaked
[2025-05-18 19:23] VITALS: BP 99/70; PULSE 71; RESP 30; TEMP 36.6; O2SAT 95
[2025-05-18 20:40] VITALS: BP 102/75; PULSE 70; RESP 17; TEMP 36.4; O2SAT 96
--- NOTE | 2025-05-18 20:53 | ECHO_ITS ---
Transthoracic Echo Report Ht (in): 66 Wt (lb): 128 Exam Location: Echo Lab Status: Emergency Band And Cuff Cutter: Lilian Sheppard Indications: Procedure Performed: BP: 119 / 72 HR: 53 Technical Quality: Technically difficult study MEASUREMENTS (Male / Female) Normal Values 2D ECHO LV Diastolic Diameter PLAX 2.9 cm 4.2 - 5.9 / 3.9 - 5.3 cm LV Systolic Diameter PLAX 2.0 cm IVS Diastolic Thickness 1.0 cm 0.6 - 1.0 / 0.6 - 0.9 cm LVPW Diastolic Thickness 1.1 cm 0.6 - 1.0 / 0.6 - 0.9 cm LV Relative Wall Thickness 0.7 LVOT Diameter 1.3 cm Aortic Root Diameter 1.8 cm M-MODE Aortic Root Diameter MM 2.0 cm LA Systolic Diameter MM 2.8 cm LA Ao Ratio MM 1.4 AV Cusp Separation MM 1.7 cm DOPPLER AV Peak Velocity 96.1 cm/s AV Peak Gradient 3.7 mmHg AV Mean Gradient 2.0 mmHg AV Velocity Time Integral 20.6 cm LVOT Peak Velocity 82.8 cm/s LVOT Peak Gradient 2.7 mmHg LVOT Velocity Time Integral 19.8 cm LVOT Cardiac Index 848.4 cm?/min?m? AV Area Cont Eq vti 1.3 cm? AV Area Cont Eq pk 1.1 cm? MV Area PHT 4.6 cm? Mitral E Point Velocity 42.7 cm/s Mitral A Point Velocity 47.1 cm/s Mitral E to A Ratio 0.9 LV E' Lateral Velocity 7.6 cm/s Mitral E to LV E' Lateral Ratio 5.6 LV E' Septal Velocity 7.5 cm/s Mitral E to LV E' Septal Ratio 5.7 FINDINGS Left Ventricle Normal left ventricular size and systolic function with no obvious regional wall motion abnormalities. Mild LVH. The ejection fraction is visually estimated at 60% There is grade I diastolic dysfunction of the left ventricle (impaired relaxation pattern). Right Ventricle The right ventricle is normal in size. The right ventricular systolic function is mildly decreased. Left Atrium The left atrium is normal by two-dimensional, color flow and Doppler imaging with no structural abnormalities, no thrombus formation present. Right Atrium The right atrium is normal by two-dimensional imaging, color flow and Doppler imaging with no structural abnormalities, no thrombus formation present. Atrial Septum The interatrial septum appears normal with no evidence of a shunt. Aorta The aorta is normal by two-dimensional, color flow and Doppler interrogation. Mitral Valve The mitral valve is normal by two-dimensional, color flow and Doppler interrogation. There is no significant mitral valve regurgitation, stenosis or prolapse. Aortic Valve The aortic valve is trileaflet and normal by two-dimensional, color flow and Doppler interrogation. There is no significant aortic valve regurgitation. Tricuspid Valve The tricuspid valve is normal by two-dimensional, color flow and Doppler interrogation. There is trace tricuspid valve regurgitation. Pulmonic Valve The pulmonic valve is not well visualized. There is no significant pulmonic valve regurgitation. Vessels Inferior vena cava not well visualized. Pericardium The pericardium is normal by two-dimensional imaging. There is no significant pericardial effusion. CONCLUSIONS indication: Pitting edema Normal size left ventricle mild concentric LVH normal wall motion ejection fraction of 60%. grade I left ventricular diastolic dysfunction. The RV is normal in size. Trace TR. IVC not well visualized. Yuli Gillette (Electronically Signed) Final Date: 20 May 2025 11:49
[2025-05-18] MEDS: MEROPENEM INJ 1,000 MG in SODIUM CHLORIDE 0.9% (Popper) 50 ML 100 MG IV (21:50)
[2025-05-18 22:58] LABS: Albumin, Serum 3.1 gm/dL (3.5-5.0); Anion Gap 7 (7-16); BUN/Creatinine Ratio 18 Ratio (12-20); Blood Urea Nitrogen 14 mg/dL (9-23); Calcium 8.4 mg/dL (8.3-10.6); Calcium (Corrected) 9.1 mg/dL (8.5-10.1); Carbon Dioxide 28.9 mMol/L (20.0-31.0); Chloride 109 mMol/L (98-107); Creatinine (Component) 0.8 mg/dL (0.6-1.3); Estimated Creatinine Clearance 71.6 mL/min (>60); Glucose 147 mg/dL (74-106); Osmolality,Calculated 292 (275-295); Phosphorous 3.8 mg/dL (2.4-5.1); Potassium 4.8 mMol/L (3.4-5.1); Sodium 145 mMol/L (136-145); eGFR > 60 See Note
--- NOTE | 2025-05-18 22:58 | ESHP_ITS ---
<Statement entered by Ramo Ponce MD - 05/19/25 05:11> I have personally seen and examined the patient. I agree with the resident's assessment and plan as documented below. Ramo Ponce DO PGY-2 Internal Medicine - GME Documentation for date of: 05/18/25 HPI History of Present Illness Chief complaint: Abdominal pain History of present illness: Alvina is a 59-year-old female with a past medical history of developmental delay, diabetes, bipolar disorder, and frequent UTIs, who presents to the ED due to altered mental status and is admitted to [facility] for management of acute acalculous cholecystitis and cystitis. Due to developmental delay, the patient could not provide adequate history. The patient's caregiver was the source of the history. The patient's caregiver noticed that the patient was acting altered yesterday with foul-smelling urine, which prompted the caregiver to have the patient sent to the ED from [facility]. Patient was found to have T. bili of 1.8, AST 672, ALT 472, and alk phos 236, with patient mild being in pain with deep palpation in the ED on initial presentation. This prompted right upper quadrant ultrasound, which showed fluid around the gallbladder concerning for acute cholecystitis. MRCP was ordered which showed contracted gallbladder with mild gallbladder wall thickening. Urinalysis suggests UTI. Patient was started on Rocephin and Flagyl in ED. ED consulted general surgeon Dr. Warren, who plans to discuss surgical management with this patient. Patient's caregiver is not the medical decision maker. Patient's caregiver stated that the decision maker can be called at [phone] and asking to speak to the head doctor (Dr. Alex) [facility]. Will assume patient is full code at this time. Per chart review, patient was noted to have ESBL E. coli from urine culture collected 04/30/2025. Patient was noted to have potential acalculous cholecystitis on 04/30/2025, which prompted a HIDA scan, which showed minimal gallbladder wall activity and negative for complete cystic duct obstruction. Patient was discharged from the ED due to stable condition at the time with strict return precautions. Current Medication(s): ? Aspirin 81 mg daily ? Valproic acid 1500 mg at bedtime ? Levothyroxine 88 mg in morning ? Chelyan carbonate 300 mg at night ? Metformin 500 mg daily ? Docusate 200 mg as needed ? Senna 17.2 mg as needed ? Lactulose 30 mL as needed ? Pending further med rec Allergies: Tetracyclines Family History: non-continuable; mother had suspected alcohol abuse Alcohol Intake:?Caregiver denies Tobacco/Vape Use:?Caregiver denies Other Drug Use:?Caregiver denies Review of Systems Review of Systems ROS Unobtainable: unobtainable due to medical condition Exam Vital Signs Temp Pulse Resp BP Pulse Ox O2 Del Method 97.6 F 70 17 102/75 96 Room Air 05/18/25 20:40 05/18/25 20:40 05/18/25 20:40 05/18/25 20:40 05/18/25 20:40 05/18/25 19:23 Narrative Exam Physical Exam: General: Alert, no acute distress. Skin: Warm, dry, intact, no obvious rash. Head: Normocephalic, atraumatic. Eye: Normal conjunctiva, PERRL. Cardiovascular: Regular rate and rhythm, no murmur, +S1/S2. Respiratory: Lungs are clear to auscultation, respirations unlabored, no crackles, no wheezing. Gastrointestinal: Soft, nontender, distended. No guarding or rebound tenderness. Extremities: 2+ edema in BLE to knees, no cyanosis, no clubbing. 2+ pedal pulse bilaterally. Neuro: No focal deficits observed. Limited speech, moving all extremities. No overt cerebellar signs/incoordination. Psychiatric: Cooperative, appropriate affect. Results: Labs 05/19/25 04:48 05/18/25 22:13 Labs: Short CBC 05/18/25 Range/Units 11:24 WBC 5.9 (3.6-11.0) Thou/mm3 Hgb 12.8 (12.0-16.0) g/dL Hct 38.5 (36.0-46.0) % Plt Count 84 L D (140-440) Thou/mm3 BMP 05/18/25 05/18/25 11:07 22:13 Sodium 143 145 Potassium 5.2 H 4.8 Chloride 108 H 109 H Carbon Dioxide 26.2 28.9 BUN 12 14 Creatinine 0.9 0.8 Glucose 141 H 147 H Calcium 8.9 8.4 Cardiac Enzymes 05/18/25 Range/Units 11:07 Troponin I < 0.002 (0.0-0.045) ng/mL Liver Function 05/18/25 05/18/25 Range/Units 11:07 22:13 Total Bilirubin 1.8 H (0.3-1.2) mg/dL AST 672 H* (0-34) U/L ALT 472 H (10-49) U/L Alkaline Phosphatase 236 H (46-116) U/L Albumin 3.5 3.1 L (3.5-5.0) gm/dL Urine 05/18/25 Range/Units 10:25 Urine Color Yellow (Lt Yel-Yel) Urine Clarity Cloudy A (Clear/Hazy) Urine pH 6.5 (5.0-7.0) Ur Specific [place] 1.016 (1.001-1.035) Urine Protein 1+ A (Neg - Trace) Urine Glucose (UA) Negative (Negative) ABG Interpretation ABG results: 05/18/25 10:12 VBG pH 7.33 VBG pCO2 58 H VBG pO2 33 VBG Base Excess 3 Quality Measures Quality Measures VTE prophylaxis Medications Home Medications and Allergies Home Medications ?Medication ?Instructions ?Recorded ?Confirmed ?Type ASPIRIN (ASA 81MG EC) 81 mg PO DAILY ##0 11/12/13 05/18/25 History divalproex 250 mg tablet,delayed 1,500 mg PO HS #0 tab s 11/12/13 05/18/25 History release (Depakote) oxybutynin chloride 5 mg tablet 5 mg PO QDAY ##0 11/1205/19/25 History potassium chloride 8 mEq 8 meq PO QDAY #0 tabs 05/18/25 History tablet,extended release (Klor-Con) lactulose 10 gram/15 mL oral 30 g PO DAILY 30 days ##0 11/15/13 05/19/25 History solution (Enulose) polyethylene glycol 3350 17 gram 1 pkt PO QDAY ##0 05/19/25 History oral powder packet (Miralax) cholecalciferol (vitamin D3) 50 50 mcg PO QDAY 4 05/18/25 History mcg (2,000 unit) capsule (Vitamin D3) docusate sodium 100 mg capsule 200 mg PO QDAY 10/28/23 05/19/25 History levothyroxine 88 mcg tablet 88 mcg PO QDAY 10/28/23 History lithium carbonate 300 mg capsule 300 mg PO HS 10/28/23 05/18/25 History metformin 500 mg tablet 500 mg PO QDAY 10/28/2304/25 History acetaminophen 325 mg tablet 650 mg PO Q4H PRN pain 07/1905/19/25 History sennosides 8.6 mg tablet (senna) 17.2 mg PO HS 5 05/19/25 History trimethoprim 100 mg tablet 100 mg PO DAILY 05/18/25 History cefuroxime axetil 500 mg tablet 500 mg PO BID 05/19/25 05/19/25 History Allergies Allergy/AdvReac Type Severity Reaction Status Date / Time tetracycline Allergy Unknown Verified 05/18/25 10:05 ibuprofen AdvReac Unknown Verified 05/18/25 10:05 Visit Medications Acetaminophen (Acetaminophen 325 Mg Tablet) 650 mg PO Q6H PRN PRN Reason: PAIN SCALE 1-3 (mild Stop: 06/17/25 20:45 Aspirin (Aspirin Ec 81 Mg Tabec) 81 mg PO QDAY SINA Stop: 06/18/25 08:59 Dextrose (Dextrose 50%-Water Inj 50 Ml Syringe) 25 ml IV Q15MIN PRN PRN Reason: BG 50-70 responsive npo pt Stop: 06/17/25 20:51 Dextrose (Dextrose 50%-Water Inj 50 Ml Syringe) 50 ml IV Q15MIN PRN PRN Reason: BG <50 OR BG <70 & pt unresponsive Stop: 06/17/25 20:51 Divalproex Sodium (Divalproex Sod Ec 125 Mg Tabec) 1,500 mg PO HS SINA Stop: 06/17/25 20:59 Glucagon (Glucagon Inj 1 Mg Vial) 1 mg IM Q15MIN PRN PRN Reason: BG <70, and no IV access Heparin Sodium (Porcine) (Heparin Sod Inj 5000 Unit/Ml Vial) 5,000 unit SC Q12HR SINA Stop: 06/01/25 20:59 Meropenem 1,000 mg/ Sodium (Chloride) 50 mls @ 100 mls/hr IV Q8HR SINA Stop: 05/25/25 21:59 Insulin Human Lispro (Insulin Lispro (Admelog) 1 Unit/0.01 Ml Unit) 0 unit SC Q6HR SINA; Protocol Stop: 06/18/25 00:00 Lactulose (Lactulose Syrup 20 Gm/30 Ml Udc) 30 gm PO QDAY PRN; Protocol PRN Reason: Constipation Stop: 06/18/25 08:59 Levothyroxine Sodium (Levothyroxine Sodium 88 Mcg Tablet) 88 mcg PO ACBR SINA Stop: 06/18/25 05:59 Chelyan Carbonate (Chelyan Carb 150 Mg Capsule) 300 mg PO HS SINA Stop: 06/17/25 20:59 Ondansetron HCl (Ondansetron Inj 2 Mg/Ml Inj 2 Ml) 4 mg IVP Q6H PRN; Protocol PRN Reason: NAUSEA OR VOMITING Stop: 06/17/25 20:45 Discontinued Medications Diazepam (Diazepam 5 Mg Tablet) 5 mg PO X1 STA Stop: 05/18/25 16:41 Last Admin: 05/18/25 16:46 Dose: 5 mg Ceftriaxone Sodium/Dextrose (Rocephin/D5w 1gm Iv Premix) 1 gm in 50 mls @ 100 mls/hr IV NOW ONE Stop: 05/18/25 13:53 Last Infusion: 05/18/25 14:37 Dose: Infused Azithromycin 500 mg/ Sodium (Chloride) 250 mls @ 500 mls/hr IV NOW ONE Stop: 05/18/25 13:54 Last Infusion: 05/18/25 14:38 Dose: Infused Metronidazole (Flagyl 500 Mg Iv) 500 mg in 100 mls @ 200 mls/hr IV NOW ONE Stop: 05/18/25 15:17 Last Infusion: 05/18/25 16:55 Dose: Infused Meropenem 1,000 mg/ Sodium (Chloride) 50 mls @ 100 mls/hr IV X1 ONE Stop: 05/18/25 21:59 Last Admin: 05/18/25 21:50 Dose: 100 mls/hr Assessment & Plan Plan Alvina is a 59-year-old female with a past medical history of developmental delay, diabetes, bipolar disorder, and frequent UTIs headaches, who presents to the ED due to altered mental status and is admitted to [facility] for management of acute acalculous cholecystitis and cystitis. #Acute acalculous cholecystitis #Acute on chronic transaminitis due to possible #Hepatocellular liver disease vs viral hepatitis Patient had elevated bilirubin of 1.8, AST 672, ALT 472, alk phos 236 in ED. MRCP was positive for contracted gallbladder with mild gallbladder wall thickening without presence of stones. R factor of 4.7, suggesting mixed viral hepatitis and hepatocellular pattern of disease. ? Consulted general surgery, appreciate recommendations ? Patient made n.p.o. at midnight ? Tylenol 650mg PRN, no other pain medication ordered at this time due to patient not expressing pain on admission examination ? Viral hepatitis panel 03/30/25 negative. Consider autoimmune hepatitis workup #Urinary tract infection #Acute encephalopathy #History of recurrent UTIs Urinalysis showed urine RBC 106, urine WBC 1099, 4+ bacteria. Patient noted to have ESBL E. coli from urine culture collected 04/30/2025. ? Escalated empiric antibiotic to meropenem 1 g every 8 hours for ESBL coverage ? Consulted infectious disease, appreciate recommendations ? Pending urine cultures for antibiotic de-escalation #Thrombocytopenia Patient platelets 84 on admission. Patient noted to have chronic thrombocytopenia and previous visits. DDx: Hepatic disease, bone marrow suppression, medication side effect (likely due to Depakote), essential thrombocytopenia ? Will monitor with daily CBC ? Consider follow up with outpatient hematology #Pitting edema of BLE #Suspected CHF Noted on physical exam. Caregiver noted that this was not new. ? Will hold IV hydration for now ? Ordered TTE to assess for potential chronic CHF #History of Hypothyroidism ? Restarted home thyroxine #Chronic constipation ? Restarted home lactulose as needed #History of type 2 diabetes mellitus ? Started sliding scale insulin ? Ordered a.m. hemoglobin A1c #History of bipolar disorder ? Restarted home lithium and valproic acid #History of developmental delay Patient requires caregiver and has history of developmental disorder, possibly related to maternal alcohol use. ? Will monitor for acute changes in behavior DVT Prophylaxis: Heparin (held due to thrombocytopenia) GI Prophylaxis: None Diet: NPO at midnight [place]: None Lines: Peripheral IV Antibiotics: Meropenem 1g Q8H Code Status: FULL Reason for Hospitalization: Acute acalculus cholecystitis and cystitis Other Barriers to Discharge: N/A Patient plan of care was discussed with the senior resident Dr. Ponce and attending physician Dr. Rayshawn Blake, PGY1 Attending Provider Attestation/Addendum I attest that I was physically present for the evaluation, physical examination, lab and imaging review of the patient with the residents. I discussed the case with the residents and agree with the findings and plans of care as documented above. After examination of the patient and review of the clinical data I feel that this patient needs admission to the hospital for further treatment/evaluation. Patient is a 59 years old female with past medical history of the limited delay, diabetes, bipolar disorder, frequent UTIs who presented to the ED with complaint of altered mental status. Caregiver at bedside noticed that patient was acting strangely and also noticed foul-smelling urine. In the ED, initial vitals were within normal limits. Lab results show platelet counts of 84, potassium 5.2, chloride 108, total bilirubin 1.8, AST 672, ALT 472, ALP 236 and T4 of 11.1. Urinalysis was done, which showed cloudy urine with 1099 WBCs, positive leukocyte esterase and positive nitrite along with 4+ bacteria. Head CT was done, which was negative for acute hemorrhage, mass effect or midline shift. Chest x-ray shows mild bilateral perihilar pneumonia. MRCP was done, which showed contracted gallbladder with mild gallbladder wall thickening, concerning for cholecystitis. Common hepatic and common bile duct were within normal limits without stones. Gallbladder ultrasound also showed contracted gallbladder, suspicion for cholecystitis. General surgery was contacted by ED, will follow patient with us. We will be admit the patient for management of acute encephalopathy likely secondary to acute acalculous cholecystitis/UTI. We will start her on IV meropenem as per her last sensitivity from urine culture. We will obtain blood and urine cultures, Infectious disease consulted. Patient's liver enzymes are significantly elevated in setting of possible cholecystitis. We will keep her n.p.o. Patient also noted to have bilateral lower extremity edema on exam, we will obtain transthoracic echo to rule out CHF. Started on sliding scale for diabetes. Resumed home thyroxine, lithium and valproic acid. Vipul Tabares MD
[2025-05-18] MEDS: LITHIUM CARB 150 MG CAPSULE 300 MG PO (23:17)
[2025-05-18] MEDS: DIVALPROEX SOD EC 125 MG TABEC 1500 MG PO (23:17)
[2025-05-18 23:30] VITALS: BMI 24.9
[2025-05-19] VITALS (11 sets, daily range): BP systolic 101–115; BP diastolic 60–72; PULSE 59–66; RESP 14–24; TEMP 36.1–36.7; O2SAT 96–99
[2025-05-19] MEDS: MEROPENEM INJ 1,000 MG in SODIUM CHLORIDE 0.9% (Popper) 50 ML 100 MG IV ×3 (05:10→22:08)
[2025-05-19 05:27] LABS: Basophils # (Auto) 0.0 Thou/mm3 (0.0-0.2); Basophils % (Auto) 0 % (0-2.5); Eosinophils # (Auto) 0.1 Thou/mm3 (0.0-0.5); Eosinophils % (Auto) 1 % (0-10); Hematocrit 32.3 % (36.0-46.0); Hemoglobin 10.9 g/dL (12.0-16.0); Immature Granulocytes Auto 0.02 Thou/mm3 (0.00-0.00); Lymphocytes # (Auto) 1.4 Thou/mm3 (1.0-4.8); Lymphocytes % (Auto) 24 % (10-50); Mean Corpuscular HGB Conc 33.7 g/dl (31.0-37.0); Mean Corpuscular Hemoglobin 29.3 pg (25.0-35.0); Mean Corpuscular Volume 87 fL (80-100); Monocytes # (Auto) 0.6 Thou/mm3 (0.0-0.8); Monocytes % (Auto) 11 % (0-12); Neutrophils # (Auto) 3.6 Thou/mm3 (1.8-7.7); Neutrophils % (Auto) 63 % (37-80); Nucleated Red Blood Cell # 0.00 Thou/mm3 (0.00-0.00); Nucleated Red Blood Cell % 0 /100 WBC (0); RDW Standard Deviation 41.9 fL (36.4-46.3); Red Blood Count 3.72 Miln/mm3 (4.00-5.20); White Blood Count 5.7 Thou/mm3 (3.6-11.0)
[2025-05-19 05:33] LABS: Platelet Count 77 Thou/mm3 (140-440)
[2025-05-19 06:17] LABS: Alanine Aminotransferase 381 U/L (10-49); Albumin, Serum 3.1 gm/dL (3.5-5.0); Albumin/Globulin Ratio 1.2 (1.2-2.2); Alkaline Phosphatase 217 U/L (46-116); Anion Gap 7 (7-16); Aspartate Amino Transferase 339 U/L (0-34); BUN/Creatinine Ratio 15 Ratio (12-20); Bilirubin,Total 1.1 mg/dL (0.3-1.2); Blood Urea Nitrogen 12 mg/dL (9-23); Calcium 8.6 mg/dL (8.3-10.6); Calcium (Corrected) 9.3 mg/dL (8.5-10.1); Carbon Dioxide 29.6 mMol/L (20.0-31.0); Chloride 109 mMol/L (98-107); Creatinine (Component) 0.8 mg/dL (0.6-1.3); Estimated Creatinine Clearance 61.8 mL/min (>60); Free T4 (Free Thyroxine) 0.97 ng/dL (0.89-1.76); Globulin 2.5 gm/dL (2.3-3.5); Glucose 113 mg/dL (74-106); Osmolality,Calculated 291 (275-295); Potassium 4.4 mMol/L (3.4-5.1); Sodium 146 mMol/L (136-145); Total Protein 5.6 gm/dL (5.7-8.2); eGFR > 60 See Note
[2025-05-19 08:28] LABS: Slide Review Platelets confirmed
[2025-05-19] MEDS: ASPIRIN EC 81 MG TABEC PO (09:02)
--- NOTE | 2025-05-19 11:31 | ESPR_ITS ---
Subjective Subjective Interval history: admit for christa rx appears to be based on old urine from 04/30 Exam Vital Signs Temp Pulse Resp BP Pulse Ox O2 Del Method 97.0 F 63 14 103/72 96 Room Air 05/19/25 07:48 05/19/25 07:48 05/19/25 07:48 05/19/25 07:48 05/19/25 07:48 05/19/25 07:48 Narrative Exam not seen. use of merrem noted by primary team. Objective - Internal Medicine Labs 05/19/25 04:48 05/19/25 04:48 Labs: Laboratory Results - last 24 hr 05/18/25 05/18/25 05/18/25 11:07 11:24 15:16 WBC 5.9 RBC 4.42 Hgb 12.8 Hct 38.5 MCV 87 MCH 29.0 MCHC 33.2 RDW Std Deviation 42.1 Plt Count 84 L D Neut % (Auto) 78 Lymph % (Auto) 14 [place] % (Auto) 8 Eos % (Auto) 1 Baso % (Auto) 0 Neut # (Auto) 4.6 Lymph # (Auto) 0.8 L [place] # (Auto) 0.4 Eos # (Auto) 0.0 Baso # (Auto) 0.0 Immature Gran # (Auto) 0.01 H Absolute Nucleated RBC 0.00 Immature Gran % 0 Nucleated RBC % 0 PT 12.8 H INR 1.2 Sodium 143 Potassium 5.2 H Chloride 108 H Carbon Dioxide 26.2 Anion Gap 9 BUN 12 Creatinine 0.9 Estim Creat Clear Calc 63.7 eGFR > 60 BUN/Creatinine Ratio 13 Glucose 141 H Calculated Osmolality 286 Lactic Acid 1.4 Calcium 8.9 Corrected Calcium 9.3 Phosphorus Total Bilirubin 1.8 H AST 672 H* ALT 472 H Alkaline Phosphatase 236 H Ammonia 12 Troponin I < 0.002 Total Protein 6.4 Albumin 3.5 Globulin 2.9 Albumin/Globulin Ratio 1.2 Procalcitonin 0.35 TSH 1.90 Free T4 Thyroxine (T4) 11.1 H Salicylates < 3.0 Acetaminophen < 2.0 L Misc Test Result 05/18/25 05/19/25 22:13 04:48 WBC 5.7 RBC 3.72 L Hgb 10.9 L Hct 32.3 L MCV 87 MCH 29.3 MCHC 33.7 RDW Std Deviation 41.9 Plt Count 77 L Neut % (Auto) 63 Lymph % (Auto) 24 [place] % (Auto) 11 Eos % (Auto) 1 Baso % (Auto) 0 Neut # (Auto) 3.6 Lymph # (Auto) 1.4 [place] # (Auto) 0.6 Eos # (Auto) 0.1 Baso # (Auto) 0.0 Immature Gran # (Auto) 0.02 H Absolute Nucleated RBC 0.00 Immature Gran % 0 Nucleated RBC % 0 PT INR Sodium 145 146 H Potassium 4.8 4.4 Chloride 109 H 109 H Carbon Dioxide 28.9 29.6 Anion Gap 7 7 BUN 14 12 Creatinine 0.8 0.8 Estim Creat Clear Calc 71.6 61.8 eGFR > 60 > 60 BUN/Creatinine Ratio 18 15 Glucose 147 H 113 H Calculated Osmolality 292 291 Lactic Acid Calcium 8.4 8.6 Corrected Calcium 9.1 9.3 Phosphorus 3.8 Total Bilirubin 1.1 D AST 339 H ALT 381 H Alkaline Phosphatase 217 H Ammonia Troponin I Total Protein 5.6 L Albumin 3.1 L 3.1 L Globulin 2.5 Albumin/Globulin Ratio 1.2 Procalcitonin TSH Free T4 0.97 Thyroxine (T4) Salicylates Acetaminophen Misc Test Result Platelets confirmed ABG Interpretation ABG results: 05/18/25 10:12 VBG pH 7.33 VBG pCO2 58 H VBG pO2 33 VBG Base Excess 3 Assessment & Plan A&P Narrative christa by hx abn ua on merrem based on prior urine cx mr/dd by hx merrem may be overly expensive and lacks enterococcal coverage of zosyn if pt truly has a christa. it will work, but is costly Time Spent With Patient Time: Total time spent is greater than 50% in coordination of care (as documented) at patient's floor/unit and/or counseling patient:
--- NOTE | 2025-05-19 11:53 | PD.RESPRO ---
Documentation for date of: 05/19/25 Subjective Subjective Interval history: Patient was seen and examined at bedside. No acute events took place overnight. Pt converses minimally with the provider at bedside and does not seem be oriented cognizant of her medical condition. A&O x1. LFT's have been elevated. Although the patient does not state whether she is painfree indeed, she expresses dicomfort with deep abdominal palpation and is noted to be guarding. Patient is being hospitalized currently for management of acute acalculus cholecystitis and treatment of UTI. According to caregiver, the decision maker for the patient can be reached at [phone] and asking to speak to the head doctor, Dr Alex, at [facility]. Pending blood lithium level to ensure it is WNL. Exam Vital Signs Temp Pulse Resp BP Pulse Ox O2 Del Method 97.0 F 63 14 103/72 96 Room Air 05/19/25 07:48 05/19/25 07:48 05/19/25 07:48 05/19/25 07:48 05/19/25 07:48 05/19/25 07:48 Narrative Exam General: Alert, no acute distress. Skin: Warm, dry, intact, no obvious rash. Head: Normocephalic, atraumatic. Eye: Normal conjunctiva, PERRL. Cardiovascular: Regular rate and rhythm, no murmur, +S1/S2. Respiratory: Lungs are clear to auscultation, respirations unlabored, no crackles, no wheezing. Gastrointestinal: Soft, nontender, distended. Some guarding present. Extremities: 2+ edema in BLE to knees, no cyanosis, no clubbing. 2+ pedal pulse bilaterally. Neuro: No focal deficits observed. Limited speech, moving all extremities. No overt cerebellar signs/incoordination. Psychiatric: Cooperative, appropriate affect. Objective Labs 05/19/25 04:48 05/19/25 04:48 Labs: Laboratory Results - last 24 hr 05/18/25 05/18/25 05/18/25 11:07 15:16 22:13 WBC RBC Hgb Hct MCV MCH MCHC RDW Std Deviation Plt Count Neut % (Auto) Lymph % (Auto) [place] % (Auto) Eos % (Auto) Baso % (Auto) Neut # (Auto) Lymph # (Auto) [place] # (Auto) Eos # (Auto) Baso # (Auto) Immature Gran # (Auto) Absolute Nucleated RBC Immature Gran % Nucleated RBC % Sodium 143 145 Potassium 5.2 H 4.8 Chloride 108 H 109 H Carbon Dioxide 26.2 28.9 Anion Gap 9 7 BUN 12 14 Creatinine 0.9 0.8 Estim Creat Clear Calc 63.7 71.6 eGFR > 60 > 60 BUN/Creatinine Ratio 13 18 Glucose 141 H 147 H Calculated Osmolality 286 292 Lactic Acid 1.4 Calcium 8.9 8.4 Corrected Calcium 9.3 9.1 Phosphorus 3.8 Total Bilirubin 1.8 H AST 672 H* ALT 472 H Alkaline Phosphatase 236 H Troponin I < 0.002 Total Protein 6.4 Albumin 3.5 3.1 L Globulin 2.9 Albumin/Globulin Ratio 1.2 Procalcitonin 0.35 TSH 1.90 Free T4 Thyroxine (T4) 11.1 H Salicylates < 3.0 Acetaminophen < 2.0 L Misc Test Result 05/19/25 04:48 WBC 5.7 RBC 3.72 L Hgb 10.9 L Hct 32.3 L MCV 87 MCH 29.3 MCHC 33.7 RDW Std Deviation 41.9 Plt Count 77 L Neut % (Auto) 63 Lymph % (Auto) 24 [place] % (Auto) 11 Eos % (Auto) 1 Baso % (Auto) 0 Neut # (Auto) 3.6 Lymph # (Auto) 1.4 [place] # (Auto) 0.6 Eos # (Auto) 0.1 Baso # (Auto) 0.0 Immature Gran # (Auto) 0.02 H Absolute Nucleated RBC 0.00 Immature Gran % 0 Nucleated RBC % 0 Sodium 146 H Potassium 4.4 Chloride 109 H Carbon Dioxide 29.6 Anion Gap 7 BUN 12 Creatinine 0.8 Estim Creat Clear Calc 61.8 eGFR > 60 BUN/Creatinine Ratio 15 Glucose 113 H Calculated Osmolality 291 Lactic Acid Calcium 8.6 Corrected Calcium 9.3 Phosphorus Total Bilirubin 1.1 D AST 339 H ALT 381 H Alkaline Phosphatase 217 H Troponin I Total Protein 5.6 L Albumin 3.1 L Globulin 2.5 Albumin/Globulin Ratio 1.2 Procalcitonin TSH Free T4 0.97 Thyroxine (T4) Salicylates Acetaminophen Misc Test Result Platelets confirmed ABG Interpretation ABG results: 05/18/25 10:12 VBG pH 7.33 VBG pCO2 58 H VBG pO2 33 VBG Base Excess 3 Quality Measures Quality Measures VTE prophylaxis Assessment & Plan Assessment Current Active Medications: Generic Name Dose Route Start Last Admin Trade Name Freq PRN Reason Stop Dose Admin Acetaminophen 650 mg 05/18/25 20:46 Acetaminophen 325 Mg Tablet PO 06/17/25 20:45 Q6H PRN PAIN SCALE 1-3 (mild Aspirin 81 mg 05/19/25 09:00 05/19/25 09:02 Aspirin Ec 81 Mg Tabec PO 06/18/25 08:59 81 mg QDAY SINA Administration Dextrose 25 ml 05/18/25 20:52 Dextrose 50%-Water Inj 50 Ml Syringe IV 06/17/25 20:51 Q15MIN PRN BG 50-70 responsive npo pt Dextrose 50 ml 05/18/25 20:52 Dextrose 50%-Water Inj 50 Ml Syringe IV 06/17/25 20:51 Q15MIN PRN BG <50 OR BG <70 & pt unresponsive Divalproex Sodium 1,500 mg 05/18/25 21:00 05/18/25 23:17 Divalproex Sod Ec 125 Mg Tabec PO 06/17/25 20:59 1,500 mg HS SINA Administration Glucagon 1 mg 05/18/25 20:52 Glucagon Inj 1 Mg Vial IM Q15MIN PRN BG <70, and no IV access Heparin Sodium (Porcine) 5,000 unit 05/18/25 21:00 05/18/25 23:16 Heparin Sod Inj 5000 Unit/Ml Vial SC 06/01/25 20:59 Not Given Q12HR SINA Meropenem 1,000 mg/ Sodium 50 mls @ 100 mls/hr 05/19/25 06:00 05/19/25 05:10 Chloride IV 05/26/25 05:59 100 mls/hr Q8HR SINA Administration Insulin Human Lispro 0 unit 05/19/25 00:00 05/19/25 11:51 Insulin Lispro (Admelog) 1 Unit/0.01 Ml Unit SC 06/18/25 00:00 Not Given Q6HR SINA Protocol Lactulose 30 gm 05/18/25 20:46 Lactulose Syrup 20 Gm/30 Ml Udc PO 06/18/25 08:59 QDAY PRN Constipation Protocol Levothyroxine Sodium 88 mcg 05/19/25 06:00 05/19/25 05:08 Levothyroxine Sodium 88 Mcg Tablet PO 06/18/25 05:59 Not Given ACBR SINA Hilbert Carbonate 300 mg 05/18/25 21:00 05/18/25 23:17 Hilbert Carb 150 Mg Capsule PO 06/17/25 20:59 300 mg HS SINA Administration Ondansetron HCl 4 mg 05/18/25 20:46 Ondansetron Inj 2 Mg/Ml Inj 2 Ml IVP 06/17/25 20:45 Q6H PRN NAUSEA OR VOMITING Protocol Plan Plan Alvina is a 59-year-old female with PMHx of developmental delay, bipolar disorder, diabetes, and recurrent UTIs, who presented to the ED on [id number] due to altered mental status and is admitted to [facility] for management of acute acalculous cholecystitis and cystitis. #Acute acalculous cholecystitis #Acute on chronic transaminitis due to possible #Hepatocellular liver disease vs viral hepatitis Elevated bilirubin of 1.8, AST 672, ALT 472, alk phos 236 in ED. MRCP: contracted gallbladder with mild gallbladder wall thickening [with trace edema in US GB] without presence of stones. R factor of 4.7, suggesting mixed viral hepatitis and hepatocellular pattern of disease. ? Consulted general surgery, appreciate recommendations ? Patient made n.p.o. at midnight ? Tylenol 650mg PRN, no other pain medication ordered at this time due to patient not expressing pain on admission examination ? Viral hepatitis panel 03/30/25 negative. Consider autoimmune hepatitis workup #Urinary tract infection #Acute encephalopathy #History of recurrent UTIs Urinalysis showed urine RBC 106, urine WBC 1099, 4+ bacteria. Patient noted to have ESBL E. coli from urine culture collected 04/30/2025. + BCx negative after 24h Plan ? Escalated empiric antibiotic to meropenem 1 g every 8 hours for ESBL coverage ? ID consulted, Merrem is costly and lacks enterococcal coverage of Zosyn for cholecystitis, but it will work. ? Pending urine cultures for antibiotic de-escalation #Thrombocytopenia Patient platelets 84 on admission. Patient noted to have chronic thrombocytopenia and previous visits. DDx: Hepatic disease, bone marrow suppression, medication side effect (likely due to Depakote), essential thrombocytopenia ? Will monitor with daily CBC ? Consider follow up with outpatient hematology #Pitting edema of BLE #Suspected CHF Noted on physical exam. Caregiver noted that this was not new. ? Will hold IV hydration for now ? Ordered TTE to assess for potential chronic CHF #History of Hypothyroidism ? Restarted home thyroxine #Chronic constipation ? Restarted home lactulose as needed #History of type 2 diabetes mellitus ? Started sliding scale insulin ? Ordered a.m. hemoglobin A1c #History of bipolar disorder + Blood Hilbert 0.61 ? Restarted home lithium and valproic acid #History of developmental delay Patient requires caregiver and has history of developmental disorder, possibly related to maternal alcohol use. ? Will monitor for acute changes in behavior DVT Prophylaxis: Heparin (held due to thrombocytopenia) GI Prophylaxis: None Diet: NPO at midnight Prado: None Lines: Peripheral IV Antibiotics: Meropenem 1g Q8H Code Status: FULL Reason for Hospitalization: Acute acalculus cholecystitis and cystitis Other Barriers to Discharge: N/A This case was discussed with my attending physician, Dr. Rowe. Vero Mata DO PGY I Attending Provider Attestation/Addendum I have discussed and was present for the essential components of the history, physical examination, diagnosis, and treatment plan with the resident. I agree with the patient's care as documented by the resident and amended herein by me. Ronald Rowe DO. Although this document has been carefully reviewed, there may still be some phonetic and other typographical errors. These errors are purely grammatical due to imperfections in the software program and should not be construed in any way to compromise the substance of the patient's medical care during this visit. Patient seen and evaluated this AM. Vital signs stable, patient afebrile, liver enzymes still elevated T. bili 1.1. Will continue meropenem for ESBL E. coli urinary tract infection, as well as cholecystitis in which surgery has been consulted for, pending recommendations. Echo also pending, lithium level pending, Home meds reconciled and will be restarted as appropriate. Will continue to monitor closely while she is here
[2025-05-19 13:48] LABS: Lithium 0.61 mEq/L (1.00-1.20)
[2025-05-19] MEDS: INSULIN LISPRO (AdmeLOG) 1 UNIT/0.01 ML UNIT SC (20:42)
[2025-05-19] MEDS: DIVALPROEX SOD EC 125 MG TABEC 1500 MG PO (20:42)
[2025-05-19] MEDS: LITHIUM CARB 150 MG CAPSULE 300 MG PO (20:43)
[2025-05-20] VITALS (8 sets, daily range): BP systolic 96–119; BP diastolic 60–72; PULSE 53–78; RESP 14–20; TEMP 36.1–36.3; O2SAT 93–100
[2025-05-20] MEDS: MEROPENEM INJ 1,000 MG in SODIUM CHLORIDE 0.9% (Popper) 50 ML 100 MG IV ×3 (05:10→21:40)
[2025-05-20 06:08] LABS: Basophils # (Auto) 0.0 Thou/mm3 (0.0-0.2); Basophils % (Auto) 0 % (0-2.5); Eosinophils # (Auto) 0.1 Thou/mm3 (0.0-0.5); Eosinophils % (Auto) 2 % (0-10); Hematocrit 34.7 % (36.0-46.0); Hemoglobin 11.5 g/dL (12.0-16.0); Immature Granulocytes Auto 0.03 Thou/mm3 (0.00-0.00); Lymphocytes # (Auto) 2.0 Thou/mm3 (1.0-4.8); Lymphocytes % (Auto) 37 % (10-50); Mean Corpuscular HGB Conc 33.1 g/dl (31.0-37.0); Mean Corpuscular Hemoglobin 29.0 pg (25.0-35.0); Mean Corpuscular Volume 88 fL (80-100); Monocytes # (Auto) 0.5 Thou/mm3 (0.0-0.8); Monocytes % (Auto) 10 % (0-12); Neutrophils # (Auto) 2.7 Thou/mm3 (1.8-7.7); Neutrophils % (Auto) 50 % (37-80); Nucleated Red Blood Cell # 0.00 Thou/mm3 (0.00-0.00); Nucleated Red Blood Cell % 0 /100 WBC (0); Platelet Count 82 Thou/mm3 (140-440); RDW Standard Deviation 42.3 fL (36.4-46.3); Red Blood Count 3.96 Miln/mm3 (4.00-5.20); White Blood Count 5.4 Thou/mm3 (3.6-11.0)
[2025-05-20 06:56] LABS: Alanine Aminotransferase 228 U/L (10-49); Albumin, Serum 3.1 gm/dL (3.5-5.0); Albumin/Globulin Ratio 1.1 (1.2-2.2); Alkaline Phosphatase 205 U/L (46-116); Anion Gap 8 (7-16); Aspartate Amino Transferase 101 U/L (0-34); BUN/Creatinine Ratio 21 Ratio (12-20); Bilirubin,Total 0.5 mg/dL (0.3-1.2); Blood Urea Nitrogen 17 mg/dL (9-23); Calcium 8.9 mg/dL (8.3-10.6); Calcium (Corrected) 9.6 mg/dL (8.5-10.1); Carbon Dioxide 27.5 mMol/L (20.0-31.0); Chloride 108 mMol/L (98-107); Creatinine (Component) 0.8 mg/dL (0.6-1.3); Estimated Creatinine Clearance 61.8 mL/min (>60); Globulin 2.7 gm/dL (2.3-3.5); Glucose 143 mg/dL (74-106); Osmolality,Calculated 288 (275-295); Potassium 4.8 mMol/L (3.4-5.1); Sodium 143 mMol/L (136-145); Total Protein 5.8 gm/dL (5.7-8.2); eGFR > 60 See Note
[2025-05-20 07:53] LABS: Magnesium 1.5 mg/dL (1.6-2.6); Phosphorous 3.6 mg/dL (2.4-5.1)
--- NOTE | 2025-05-20 10:36 | PC.SS ---
Patient is developmentally delayed. She resides at the [facility]. Patient has 24 hour care. Patient was admitted for cholecystitis. Patient is ambulatory but needs assistance with ADL's. No DME. SS spoke to Shaista, the [facility] supplemental manager, who provided history of patient. Patient needs assistance with all ADL's including eating. Patient is on contact precautions. All healthcare medical decisions are made by [facility] with Dr. Alex. No family involved. 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 All transportation is provided by [facility]. Patient has bipolar dx and is treated by Dr. Saenz in [place]. PCP: Dr. Solorio @ [facility]. Discharge plan is to return to [facility]. Transportation: upon discharge the [facility] will provide transport Medical decision maker: Dr. Alex @ [facility] discharge plan: return to [facility]
--- NOTE | 2025-05-20 13:10 | PD.RESPRO ---
Documentation for date of: 05/20/25 Subjective Subjective Interval history: Patient was seen and examined at bedside. No acute events took place overnight. Pt converses minimally with the provider at bedside and does not seem be cognizant of her medical condition. A&O x0. Although the patient does not state whether she is painfree indeed, she does not express dicomfort with deep abdominal palpation and is noted not to be guarding today. Patient will be advanced on diet as HIDA scan is no longer indicated, according to surgery team. Patient has had soft and brown BM while inpatient per nursing records. Patient is being hospitalized currently for management of acute acalculus cholecystitis and treatment of UTI. According to caregiver, the decision maker for the patient can be reached at [phone] and asking to speak to the head doctor, Dr Alex, at [facility]. Pending blood lithium level to ensure it is WNL. Exam Vital Signs Temp Pulse Resp BP Pulse Ox O2 Del Method O2 Flow Rate 97.4 F 62 14 113/72 95 Room Air 2 05/20/25 12:00 05/20/25 12:05/20/25 12:05/20/25 12:05/20/25 12:05/20/25 12:00 05/20/25 07:55 Narrative Exam General: Alert, no acute distress. Skin: Warm, dry, intact, no obvious rash. Head: Normocephalic, atraumatic. Eye: Normal conjunctiva, PERRL. Cardiovascular: Regular rate and rhythm, no murmur, +S1/S2. Respiratory: Lungs are clear to auscultation, respirations unlabored, no crackles, no wheezing. Gastrointestinal: Soft, nontender, non-distended. No guarding noted. Normotensive bowel sounds x4 quadrants. Extremities: 2+ edema in BLE to knees, no cyanosis, no clubbing. 2+ pedal pulse bilaterally. Neuro: No focal deficits observed. Limited speech, moving all extremities. No overt cerebellar signs/incoordination. Psychiatric: Cooperative, appropriate affect. Objective Labs 05/20/25 04:51 05/20/25 04:51 Labs: Laboratory Results - last 24 hr 05/19/25 05/20/25 12:45 04:51 WBC 5.4 RBC 3.96 L Hgb 11.5 L Hct 34.7 L MCV 88 MCH 29.0 MCHC 33.1 RDW Std Deviation 42.3 Plt Count 82 L Neut % (Auto) 50 Lymph % (Auto) 37 [place] % (Auto) 10 Eos % (Auto) 2 Baso % (Auto) 0 Neut # (Auto) 2.7 Lymph # (Auto) 2.0 [place] # (Auto) 0.5 Eos # (Auto) 0.1 Baso # (Auto) 0.0 Immature Gran # (Auto) 0.03 H Absolute Nucleated RBC 0.00 Immature Gran % 1 H Nucleated RBC % 0 Sodium 143 Potassium 4.8 Chloride 108 H Carbon Dioxide 27.5 Anion Gap 8 BUN 17 Creatinine 0.8 Estim Creat Clear Calc 61.8 eGFR > 60 BUN/Creatinine Ratio 21 H Glucose 143 H Calculated Osmolality 288 Calcium 8.9 Corrected Calcium 9.6 Phosphorus 3.6 Magnesium 1.5 L Total Bilirubin 0.5 D AST 101 H ALT 228 H Alkaline Phosphatase 205 H Total Protein 5.8 Albumin 3.1 L Globulin 2.7 Albumin/Globulin Ratio 1.1 L Ryegate 0.61 L ABG Interpretation ABG results: 05/18/25 10:12 VBG pH 7.33 VBG pCO2 58 H VBG pO2 33 VBG Base Excess 3 Quality Measures Quality Measures VTE prophylaxis Assessment & Plan Assessment Current Active Medications: Generic Name Dose Route Start Last Admin Trade Name Freq PRN Reason Stop Dose Admin Acetaminophen 650 mg 05/18/25 20:46 Acetaminophen 325 Mg Tablet PO 06/17/25 20:45 Q6H PRN PAIN SCALE 1-3 (mild Aspirin 81 mg 05/19/25 09:00 05/20/25 09:05 Aspirin Ec 81 Mg Tabec PO 06/18/25 08:59 Not Given QDAY SINA Dextrose 25 ml 05/18/25 20:52 Dextrose 50%-Water Inj 50 Ml Syringe IV 06/17/25 20:51 Q15MIN PRN BG 50-70 responsive npo pt Dextrose 50 ml 05/18/25 20:52 Dextrose 50%-Water Inj 50 Ml Syringe IV 06/17/25 20:51 Q15MIN PRN BG <50 OR BG <70 & pt unresponsive Divalproex Sodium 1,500 mg 05/18/25 21:00 05/19/25 20:42 Divalproex Sod Ec 125 Mg Tabec PO 06/17/25 20:59 1,500 mg HS SINA Administration Glucagon 1 mg 05/18/25 20:52 Glucagon Inj 1 Mg Vial IM Q15MIN PRN BG <70, and no IV access Heparin Sodium (Porcine) 5,000 unit 05/18/25 21:00 05/19/25 20:40 Heparin Sod Inj 5000 Unit/Ml Vial SC 06/01/25 20:59 Not Given Q12HR SINA Meropenem 1,000 mg/ Sodium 50 mls @ 100 mls/hr 05/19/25 06:00 05/20/25 05:40 Chloride IV 05/26/25 05:59 Infused Q8HR SINA Infusion Insulin Human Lispro 0 unit 05/20/25 06:00 05/20/25 05:07 Insulin Lispro (Admelog) 1 Unit/0.01 Ml Unit SC 06/19/25 05:59 Not Given Q6HR SINA Protocol Lactulose 30 gm 05/18/25 20:46 Lactulose Syrup 20 Gm/30 Ml Udc PO 06/18/25 08:59 QDAY PRN Constipation Protocol Levothyroxine Sodium 88 mcg 05/19/25 06:00 05/20/25 05:10 Levothyroxine Sodium 88 Mcg Tablet PO 06/18/25 05:59 Not Given ACBR SINA Ry[place] Carbonate 300 mg 05/18/25 21:00 05/19/25 20:43 Ryegate Carb 150 Mg Capsule PO 06/17/25 20:59 300 mg HS SINA Administration Ondansetron HCl 4 mg 05/18/25 20:46 Ondansetron Inj 2 Mg/Ml Inj 2 Ml IVP 06/17/25 20:45 Q6H PRN NAUSEA OR VOMITING Protocol Plan Plan Alvina is a 59-year-old female with PMHx of developmental delay, bipolar disorder, diabetes, and recurrent UTIs, who presented to the ED on [id number] due to altered mental status and is admitted to [facility] for management of cystitis and workup of hepatic injury as ref;ected in elevated LFT's. #Urinary tract infection #Acute encephalopathy #History of recurrent UTIs Urinalysis showed urine RBC 106, urine WBC 1099, 4+ bacteria. Patient noted to have ESBL E. coli from urine culture collected 04/30/2025. + BCx negative after 48h + UCx positive for E coli Plan ? Escalated empiric antibiotic to meropenem 1 g every 8 hours for ESBL coverage ? ID consulted, Merrem is costly and lacks enterococcal coverage of Zosyn for cholecystitis, but it will work. However, current ctx is resistant to Zosyn. #Liver cirrhosis #Acute on chronic transaminitis Ddx Acute acalculous cholecystitis, hepatocellular liver disease vs viral hepatitis 05/20 LFT's have trended down with T. bili of 0.5 (1.8), AST 101 (672), ALT 228 (472) alk phos 205 (236, values in ED). PT 12.8, INR 1.2 MRCP: contracted gallbladder with mild gallbladder wall thickening [with trace edema in [place] GB] without presence of stones. R factor of 4.7, suggesting mixed viral hepatitis and hepatocellular pattern of disease. Clinically, the patient shows no signs or symptoms of cholecystitis?she is eating well and reports no pain. Similar evaluations performed in March and early April 2025 revealed radiographic evidence of cirrhosis with mild ascites. Cirrhosis can mimic cholecystitis on imaging, but given 30% surgical mortality risk and the absence of clinical symptoms, percutaneous cholecystostomy is not warranted in this case. ? Consulted general surgery, appreciate recommendations ? Advance diet as tolerated. - DC HIDA; the scan would not change medical management per surgery. - Avoid hepatotoxins ? Tylenol 650mg PRN, no other pain medication ordered at this time due to patient not expressing pain on admission examination ? Viral hepatitis panel 03/30/25 negative. Consider autoimmune hepatitis workup #Thrombocytopenia Patient platelets 84 on admission. Patient noted to have chronic thrombocytopenia and previous visits. DDx: Hepatic disease, bone marrow suppression, medication side effect (likely due to Depakote), essential thrombocytopenia ? Will monitor with daily CBC ? Consider follow up with outpatient hematology #Pitting edema of BLE #Suspected CHF Noted on physical exam. Caregiver noted that this was not new. Follow up TTE showed mild concentric LVH with grade 1 LV diastolic dysfx. Trace TR. ? Will hold IV hydration for now #History of Hypothyroidism ? Restarted home thyroxine #Chronic constipation ? Restarted home lactulose as needed #History of type 2 diabetes mellitus HgbA1c 6.2 ([id number]) ? Started sliding scale insulin #History of bipolar disorder + Blood Ryegate 0.61 ? Restarted home lithium and valproic acid #History of developmental delay Patient requires caregiver and has history of developmental disorder, possibly related to maternal alcohol use. ? Will monitor for acute changes in behavior DVT Prophylaxis: Heparin (held due to thrombocytopenia) GI Prophylaxis: None Diet: NPO at midnight Prado: None Lines: Peripheral IV Antibiotics: Meropenem 1g Q8H Code Status: FULL Reason for Hospitalization: Acute acalculus cholecystitis and cystitis Other Barriers to Discharge: N/A This case was discussed with my attending physician, Dr. Rowe. Vero Mata DO PGY I Attending Provider Attestation/Addendum I have discussed and was present for the essential components of the history, physical examination, diagnosis, and treatment plan with the resident. I agree with the patient's care as documented by the resident and amended herein by me. Ronald Rowe DO. Although this document has been carefully reviewed, there may still be some phonetic and other typographical errors. These errors are purely grammatical due to imperfections in the software program and should not be construed in any way to compromise the substance of the patient's medical care during this visit. Patient seen and evaluated this AM. No acute events overnight, vital signs stable, patient afebrile. Significant labs include stable hemoglobin 11.5, platelet count 82 and a WBC of 5.4. Liver enzymes downtrending. Patient subsequently admitted for acute acalculous cholecystitis, urinary tract infection with associated acute encephalopathy and concern for heart failure by admitting team due to lower extremity edema. Will continue patient on meropenem for now considering the patient's 05/18 urine cultures demonstrating ESBL E. coli resistant to Zosyn. ID is on board. Blood cultures NGTD. HIDA scan also pending per surgery recommendations, imaging findings for cholecystitis are equivocal at present hence we will try to get a more definitive diagnosis. Patient already on meropenem which should suffice for cholecystitis. General surgery, Dr. Das on board, will wait for HIDA scan before making any determination in regards to surgical intervention. Echo is pending following.
--- NOTE | 2025-05-20 14:20 | PD.SURCONS ---
HPI Consult details History of present illness: 59F with DM, developmental delay and recurrent UTI admitted 05/18 after being brought to ER by caregiver who noted AMS and malodorous urine. Pt was found to have recurrent UTI and was additionally noted to have elevated liver enzymes including Tbili 1.8 and AST/ALT in the high hundreds, which have since downtrended. US and MRCP both showed contracted gallbladder with a possibility of acute cholecystitis. Pt is awaiting HIDA scan but as of today is doing well with no obvious pain, per nursing staff she ate most of her lunch and has not had any complaints PMH: DM, developmental delay, recurrent UTI Meds: includes ASA 81mg, no other antiplt or anticoagulation Allergies: Tetracycline, ibuprofen Social hx: Pt is under care of guardian Dr Alex at [facility] Review of Systems Review of Systems ROS Unobtainable: unobtainable due to mental condition Meds Home Medications and Allergies Home Medications ?Medication ?Instructions ?Recorded ?Confirmed ?Type ASPIRIN (ASA 81MG EC) 81 mg PO DAILY ##0 11/12/13 05/18/25 History divalproex 250 mg tablet,delayed 1,500 mg PO HS #0 tabs 11/12/13 05/18/25 History release (Depakote) oxybutynin chloride 5 mg tablet 5 mg PO QDAY ##0 11/12/13 05/19/25 History potassium chloride 8 mEq 8 meq PO QDAY #0 tabs 11/12/13 05/18/25 History tablet,extended release (Klor-Con) lactulose 10 gram/15 mL oral 30 g PO DAILY 30 days ##0 11/15/13 05/19/25 History solution (Enulose) polyethylene glycol 3350 17 gram 1 pkt PO QDAY ##0 02/17/17 05/19/25 History oral powder packet (Miralax) cholecalciferol (vitamin D3) 50 50 mcg PO QDAY 10/28/23 05/18/25 History mcg (2,000 unit) capsule (Vitamin D3) docusate sodium 100 mg capsule 200 mg PO QDAY 10/28/23 05/19/25 History levothyroxine 88 mcg tablet 88 mcg PO QDAY 10/28/23 05/18/25 History lithium carbonate 300 mg capsule 300 mg PO HS 10/28/23 05/18/25 History metformin 500 mg tablet 500 mg PO QDAY 10/28/23 05/18/25 History acetaminophen 325 mg tablet 650 mg PO Q4H PRN pain 04/02/25 05/19/25 History sennosides 8.6 mg tablet (senna) 17.2 mg PO HS 04/02/25 05/19/25 History trimethoprim 100 mg tablet 100 mg PO DAILY 05/18/25 05/18/25 History cefuroxime axetil 500 mg tablet 500 mg PO BID 05/19/25 05/19/25 History Allergies Allergy/AdvReac Type Severity Reaction Status Date / Time tetracycline Allergy Unknown Verified 05/18/25 10:05 ibuprofen AdvReac Unknown Verified 05/18/25 10:05 Exam Vital Signs Temp Pulse Resp BP Pulse Ox O2 Del Method O2 Flow Rate 97.4 F 62 14 113/72 95 Room Air 2 05/20/25 12:00 05/20/25 12:00 05/20/25 12:00 05/20/25 12:00 05/20/25 12:00 05/20/25 12:00 05/20/25 07:55 Constitutional Constitutional: no acute distress Routine Respiratory Exam Respiratory: Present no resp distress Routine Abdominal Exam Abdominal: Present soft; Absent tenderness or distended Results Results: Laboratory Laboratory results: results reviewed Results: Imaging Imaging narrative: MRCP report reviewed US - abdomen: report reviewed Assessment & Plan Plan 59F with DM, developmental delay and recurrent UTI admitted 05/18 after being brought to ER by caregiver who noted AMS and malodorous urine, with findings of recurrent UTI and elevated liver enzymes which have since downtrended. Clinically pt does not have signs or symptoms of cholecystitis as she is eating well without any pain or tenderness, and she underwent similar workups in March and early April 2025 which indicated radiographic signs of cirrhosis with mild ascites. Cirrhosis can cause the appearance of cholecystitis on imaging studies but confers a 30% risk of mortality for surgery, and as she is not having any discernible symptoms I do not see a need for percutaneous cholecystostomy either in this case Continue diet as tolerated DC HIDA scan as I do not expect it would exchange underwriting consultant Avoid hepatotoxins Please reconsult as needed
[2025-05-20] MEDS: INSULIN LISPRO (AdmeLOG) 1 UNIT/0.01 ML UNIT SC (17:25)
[2025-05-20] MEDS: DIVALPROEX SOD EC 125 MG TABEC 1500 MG PO (20:35)
[2025-05-20] MEDS: LITHIUM CARB 150 MG CAPSULE 300 MG PO (20:36)
[2025-05-21] VITALS (7 sets, daily range): BP systolic 108–133; BP diastolic 69–82; PULSE 60–72; RESP 17–19; TEMP 36.1–36.4; O2SAT 93–95
[2025-05-21] MEDS: INSULIN LISPRO (AdmeLOG) 1 UNIT/0.01 ML UNIT SC ×4 (00:03→17:43)
[2025-05-21] MEDS: MEROPENEM INJ 1,000 MG in SODIUM CHLORIDE 0.9% (Popper) 50 ML 100 MG IV (05:28)
[2025-05-21 05:45] LABS: Basophils # (Auto) 0.0 Thou/mm3 (0.0-0.2); Basophils % (Auto) 0 % (0-2.5); Eosinophils # (Auto) 0.1 Thou/mm3 (0.0-0.5); Eosinophils % (Auto) 2 % (0-10); Hematocrit 35.6 % (36.0-46.0); Hemoglobin 11.8 g/dL (12.0-16.0); Immature Granulocytes Auto 0.02 Thou/mm3 (0.00-0.00); Lymphocytes # (Auto) 2.4 Thou/mm3 (1.0-4.8); Lymphocytes % (Auto) 43 % (10-50); Mean Corpuscular HGB Conc 33.1 g/dl (31.0-37.0); Mean Corpuscular Hemoglobin 28.8 pg (25.0-35.0); Mean Corpuscular Volume 87 fL (80-100); Monocytes # (Auto) 0.5 Thou/mm3 (0.0-0.8); Monocytes % (Auto) 9 % (0-12); Neutrophils # (Auto) 2.5 Thou/mm3 (1.8-7.7); Neutrophils % (Auto) 44 % (37-80); Nucleated Red Blood Cell # 0.00 Thou/mm3 (0.00-0.00); Nucleated Red Blood Cell % 0 /100 WBC (0); Platelet Count 102 Thou/mm3 (140-440); RDW Standard Deviation 40.8 fL (36.4-46.3); Red Blood Count 4.10 Miln/mm3 (4.00-5.20); White Blood Count 5.6 Thou/mm3 (3.6-11.0)
[2025-05-21 06:19] LABS: Alanine Aminotransferase 140 U/L (10-49); Albumin, Serum 3.1 gm/dL (3.5-5.0); Albumin/Globulin Ratio 1.1 (1.2-2.2); Anion Gap 7 (7-16); Aspartate Amino Transferase 39 U/L (0-34); BUN/Creatinine Ratio 16 Ratio (12-20); Bilirubin,Total 0.4 mg/dL (0.3-1.2); Blood Urea Nitrogen 13 mg/dL (9-23); Calcium 8.9 mg/dL (8.3-10.6); Calcium (Corrected) 9.6 mg/dL (8.5-10.1); Carbon Dioxide 26.7 mMol/L (20.0-31.0); Chloride 108 mMol/L (98-107); Creatinine (Component) 0.8 mg/dL (0.6-1.3); Estimated Creatinine Clearance 61.8 mL/min (>60); Globulin 2.7 gm/dL (2.3-3.5); Glucose 180 mg/dL (74-106); Magnesium 1.3 mg/dL (1.6-2.6); Osmolality,Calculated 288 (275-295); Phosphorous 3.6 mg/dL (2.4-5.1); Potassium 4.7 mMol/L (3.4-5.1); Sodium 142 mMol/L (136-145); Total Protein 5.8 gm/dL (5.7-8.2); eGFR > 60 See Note
[2025-05-21 06:20] LABS: Alkaline Phosphatase 176 U/L (46-116)
--- NOTE | 2025-05-21 08:56 | PC.NURSE ---
POC DISCUSSED WITH DR. BREE BREWSTER HIDA SCAN UNTIL DR. LIANG RECOMMENDATIONS.
--- NOTE | 2025-05-21 09:34 | ESPR_ITS ---
Subjective Subjective Interval history: only pos is urine. imaging and serial exams with no christa noted Exam Vital Signs Temp Pulse Resp BP Pulse Ox O2 Del Method O2 Flow Rate 97.3 F 69 18 111/70 95 Room Air 2 05/21/25 08:00 05/21/25 08:00 05/21/25 08:00 05/21/25 08:00 05/21/25 08:00 05/21/25 08:00 05/20/25 07:55 Narrative Exam benign abd, metal dental caps noted Objective - Internal Medicine Labs 05/21/25 04:45 05/21/25 04:45 Labs: Laboratory Results - last 24 hr 05/21/25 04:45 WBC 5.6 RBC 4.10 Hgb 11.8 L Hct 35.6 L MCV 87 MCH 28.8 MCHC 33.1 RDW Std Deviation 40.8 Plt Count 102 L D Neut % (Auto) 44 Lymph % (Auto) 43 [place] % (Auto) 9 Eos % (Auto) 2 Baso % (Auto) 0 Neut # (Auto) 2.5 Lymph # (Auto) 2.4 [place] # (Auto) 0.5 Eos # (Auto) 0.1 Baso # (Auto) 0.0 Immature Gran # (Auto) 0.02 H Absolute Nucleated RBC 0.00 Immature Gran % 0 Nucleated RBC % 0 Sodium 142 Potassium 4.7 Chloride 108 H Carbon Dioxide 26.7 Anion Gap 7 BUN 13 Creatinine 0.8 Estim Creat Clear Calc 61.8 eGFR > 60 BUN/Creatinine Ratio 16 Glucose 180 H Calculated Osmolality 288 Calcium 8.9 Corrected Calcium 9.6 Phosphorus 3.6 Magnesium 1.3 L Total Bilirubin 0.4 AST 39 H ALT 140 H Alkaline Phosphatase 176 H D Total Protein 5.8 Albumin 3.1 L Globulin 2.7 Albumin/Globulin Ratio 1.1 L ABG Interpretation ABG results: 05/18/25 10:12 VBG pH 7.33 VBG pCO2 58 H VBG pO2 33 VBG Base Excess 3 Assessment & Plan A&P Narrative christa by hx abn ua on merrem based on urine cx mr/dd by hx one time fosfomycin ok for remainder of rx with neg bc and benign course w/o swathi christa noted on serial exams by surgery ok for hida as precaution ptd Time Spent With Patient Time: Total time spent is greater than 50% in coordination of care (as documented) at patient's floor/unit and/or counseling patient:
[2025-05-21] MEDS: HEPARIN SOD INJ 5000 UNIT/ML VIAL SC ×2 (09:44→21:32)
[2025-05-21] MEDS: ASPIRIN EC 81 MG TABEC PO (09:44)
[2025-05-21] MEDS: FOSFOMYCIN PWD 3 GM PACKET (NON-FORMULARY) PO (09:53)
--- NOTE | 2025-05-21 10:48 | PD.RESCONSUL ---
HPI Data of Consult Requesting Physician: Mckay Anguiano MD Admitting Provider: Vipul Tabares MD Attending Provider: Mckay Anguiano MD Primary Care Provider: Physician No Primary/Family Consult Narrative History of present illness: Patient is a 59-year-old female with a past medical history of developmental delay, diabetes, bipolar disorder, and frequent UTIs, who presented to the ED 05/18/2025 due to altered mental status and is admitted to [facility] for management of acute acalculous cholecystitis and cystitis. The patient's caregiver noticed that the patient was acting altered day prior to admission with foul-smelling urine. In ED, patient was found to have T. bili of 1.8, AST 672, ALT 472, and alk phos 236, with patient mild being in pain with deep palpation. RUQ US showed fluid around the gallbladder concerning for acute cholecystitis. MRCP showed contracted gallbladder with mild gallbladder wall thickening. Urinalysis suggested UTI. Patient was started on Rocephin and Flagyl in ED, since been changed to meropenem on urine findings. ED consulted general surgeon Dr. Das, who did not strongly feel there was a cholecystitis based on imaging findings. ID was consulted in the setting of ESBL E. coli resulting on urine culture 05/18/2025. cc:: cc: Mckay Anguiano MD Past Medical History Past Medical History Comments PMH COMMENT: Past Medical History: Developmental delay, diabetes, bipolar disorder, and frequent UTIs Family History: Non-contributory Surgical History: None Social History: Caregiver denies history of smoking, denies current alcohol use, denies recreational drug use Current Medications: Aspirin 81 mg daily, valproic acid 1500 mg at bedtime, levothyroxine 88 mg in morning, lithium carbonate 300 mg at night, metformin 500 mg daily, docusate 200 mg as needed, senna 17.2 mg as needed, lactulose 30 mL as needed Allergies: Tetracyclines, ibuprofen Exam Vital Signs Temp Pulse Resp BP Pulse Ox O2 Del Method O2 Flow Rate 97.3 F 69 17 103/68 96 Room Air 2 05/22/25 12:00 05/22/25 12:00 05/22/25 12:00 05/22/25 12:00 05/22/25 12:00 05/22/25 12:00 05/20/25 07:55 Narrative Exam Physical Exam General: Awake and in no acute distress. Conversational and non-toxic appearing. HEENT: Normocephalic, atraumatic, mucous membranes moist. Heart: Regular rate and rhythm, normal S1 and S2, no murmurs. Lungs: Clear to auscultation with no wheezing or crackles. Abdomen: Soft, nondistended, nontender, positive bowel sounds. ?No guarding or rebound tenderness. Neurologic: Alert and oriented x3, no gross neurological deficit, and patient able to move all 4 extremities. Extremities: 1+ bilateral lower extremity edema Skin: No rash or ecchymoses. Results Labs 05/22/25 04:48 05/22/25 04:48 ABG Interpretation ABG results: 05/18/25 10:12 VBG pH 7.33 VBG pCO2 58 H VBG pO2 33 VBG Base Excess 3 Quality Measures Quality Measures VTE prophylaxis Medications Home Medications and Allergies Home Medications ?Medication ?Instructions ?Recorded ?Confirmed ?Type ASPIRIN (ASA 81MG EC) 81 mg PO DAILY ##0 11/12/13 05/18/25 History divalproex 250 mg tablet,delayed 1,500 mg PO HS #0 tabs 11/12/13 05/18/25 History release (Depakote) oxybutynin chloride 5 mg tablet 5 mg PO QDAY ##0 11/12/13 05/19/25 History potassium chloride 8 mEq 8 meq PO QDAY #0 tabs 11/12/13 05/18/25 History tablet,extended release (Klor-Con) lactulose 10 gram/15 mL oral 30 g PO DAILY 30 days ##0 11/15/13 05/19/25 History solution (Enulose) polyethylene glycol 3350 17 gram 1 pkt PO QDAY ##0 02/17/17 05/19/25 History oral powder packet (Miralax) cholecalciferol (vitamin D3) 50 50 mcg PO QDAY 10/28/23 05/18/25 History mcg (2,000 unit) capsule (Vitamin D3) docusate sodium 100 mg capsule 200 mg PO QDAY 10/28/23 05/19/25 History levothyroxine 88 mcg tablet 88 mcg PO QDAY 10/28/23 05/18/25 History lithium carbonate 300 mg capsule 300 mg PO HS 10/28/23 05/18/25 History metformin 500 mg tablet 500 mg PO QDAY 10/28/23 05/18/25 History acetaminophen 325 mg tablet 650 mg PO Q4H PRN pain 04/02/25 05/19/25 History sennosides 8.6 mg tablet (senna) 17.2 mg PO HS 04/02/25 05/19/25 History trimethoprim 100 mg tablet 100 mg PO DAILY 05/18/25 05/18/25 History Allergies Allergy/AdvReac Type Severity Reaction Status Date / Time tetracycline Allergy Unknown Verified 05/18/25 10:05 ibuprofen AdvReac Unknown Verified 05/18/25 10:05 Visit Medications Discontinued Medications Acetaminophen (Acetaminophen 325 Mg Tablet) 650 mg PO Q6H PRN PRN Reason: PAIN SCALE 1-3 (mild Stop: 06/17/25 20:45 Aspirin (Aspirin Ec 81 Mg Tabec) 81 mg PO QDAY SINA Stop: 06/18/25 08:59 Last Admin: 05/22/25 07:59 Dose: 81 mg Dextrose (Dextrose 50%-Water Inj 50 Ml Syringe) 25 ml IV Q15MIN PRN PRN Reason: BG 50-70 responsive npo pt Stop: 06/17/25 20:51 Dextrose (Dextrose 50%-Water Inj 50 Ml Syringe) 50 ml IV Q15MIN PRN PRN Reason: BG <50 OR BG <70 & pt unresponsive Stop: 06/17/25 20:51 Diazepam (Diazepam 5 Mg Tablet) 5 mg PO X1 STA Stop: 05/18/25 16:41 Last Admin: 05/18/25 16:46 Dose: 5 mg Divalproex Sodium (Divalproex Sod Ec 125 Mg Tabec) 1,500 mg PO HS [facility] Stop: 06/17/25 20:59 Last Admin: 05/21/25 21:32 Dose: 1,500 mg Fosfomycin Tromethamine (Fosfomycin Pwd 3 Gm Packet (Non-Formulary)) 3 gm PO X1 ONE Stop: 05/21/25 09:46 Last Admin: 05/21/25 09:53 Dose: 3 gm Glucagon (Glucagon Inj 1 Mg Vial) 1 mg IM Q15MIN PRN PRN Reason: BG <70, and no IV access Heparin Sodium (Porcine) (Heparin Sod Inj 5000 Unit/Ml Vial) 5,000 unit SC Q12HR [facility] Stop: 06/01/25 20:59 Last Admin: 05/22/25 07:59 Dose: 5,000 unit Ceftriaxone Sodium/Dextrose (Rocephin/D5w 1gm Iv Premix) 1 gm in 50 mls @ 100 mls/hr IV NOW ONE Stop: 05/18/25 13:53 Last Infusion: 05/18/25 14:37 Dose: Infused Azithromycin 500 mg/ Sodium (Chloride) 250 mls @ 500 mls/hr IV NOW ONE Stop: 05/18/25 13:54 Last Infusion: 05/18/25 14:38 Dose: Infused Metronidazole (Flagyl 500 Mg Iv) 500 mg in 100 mls @ 200 mls/hr IV NOW ONE Stop: 05/18/25 15:17 Last Infusion: 05/18/25 16:55 Dose: Infused Meropenem 1,000 mg/ Sodium (Chloride) 50 mls @ 100 mls/hr IV Q8HR SINA Stop: 05/26/25 05:59 Last Admin: 05/21/25 05:28 Dose: 100 mls/hr Meropenem 1,000 mg/ Sodium (Chloride) 50 mls @ 100 mls/hr IV X1 ONE Stop: 05/18/25 21:59 Last Admin: 05/18/25 21:50 Dose: 100 mls/hr Insulin Human Lispro (Insulin Lispro (Admelog) 1 Unit/0.01 Ml Unit) 0 unit SC Q6HR SINA; Protocol Stop: 06/18/25 00:00 Last Admin: 05/19/25 11:51 Dose: Not Given Insulin Human Lispro (Insulin Lispro (Admelog) 1 Unit/0.01 Ml Unit) 0 unit SC [facility]; Protocol Stop: 06/18/25 16:59 Last Admin: 05/19/25 20:42 Dose: 2 unit Insulin Human Lispro (Insulin Lispro (Admelog) 1 Unit/0.01 Ml Unit) 0 unit SC Q6HR SINA; Protocol Stop: 06/19/25 05:59 Last Admin: 05/22/25 00:17 Dose: 2 unit Insulin Human Lispro (Insulin Lispro (Admelog) 1 Unit/0.01 Ml Unit) 0 unit SC [facility]; Protocol Stop: 06/21/25 07:29 Last Admin: 05/22/25 12:01 Dose: 3 unit Lactulose (Lactulose Syrup 20 Gm/30 Ml Udc) 30 gm PO QDAY PRN; Protocol PRN Reason: Constipation Stop: 06/18/25 08:59 Levothyroxine Sodium (Levothyroxine Sodium 88 Mcg Tablet) 88 mcg PO ACBR SINA Stop: 06/18/25 05:59 Last Admin: 05/22/25 05:23 Dose: 88 mcg [place] Carbonate ([place] Carb 150 Mg Capsule) 300 mg PO HS SINA Stop: 06/17/25 20:59 Last Admin: 05/21/25 21:32 Dose: 300 mg Magnesium Oxide (Magnesium Oxide 400 Mg Tablet) 400 mg PO X1 ONE Stop: 05/22/25 07:57 Last Admin: 05/22/25 08:01 Dose: 400 mg Ondansetron HCl (Ondansetron Inj 2 Mg/Ml Inj 2 Ml) 4 mg IVP Q6H PRN; Protocol PRN Reason: NAUSEA OR VOMITING Stop: 06/17/25 20:45 Assessment & Plan Plan 59-year-old female with a past medical history of developmental delay, diabetes, bipolar disorder, and frequent UTIs, who presented to the ED 05/18/2025 due to altered mental status and is admitted to [facility] for management of acute acalculous cholecystitis ruled out per general surgeon and cystitis. #ESBL E. coli UTI Urinalysis showed urine RBC 106, urine WBC 1099, 4+ bacteria. Patient noted to have ESBL E. coli from urine culture collected 05/18/2025. BCx negative after 48h. UCx positive for E coli ESBL, received 2 days of meropenem. -Given 1 dose of IV fosfamycin 3 g -No need for further antibiotics Patient plan of care was discussed with the attending physician, Dr. Salinas. Sherita Ricardo, PGY-3
--- NOTE | 2025-05-21 11:26 | PC.SS ---
Follow up note: Poss d/c back to [facility] today per physician team.
[2025-05-21 12:35] LABS: HIV (1&2) Antibody Rapid Non-Reactive
--- NOTE | 2025-05-21 12:52 | PC.NURSE ---
DR. WARREN MADE AWARE PT ACCIDENTALLY PULLED IV OUT, NO NEW ORDERS. DISCHARGE ORDER FOR PT.
--- NOTE | 2025-05-21 13:30 | PC.NURSE ---
DR. DANIELLE MADE AWARE PT HAS [employer]PH[employer]HETER AND WHAT IS THE PLAN FOR [employer]EN CATHETER. NO NEW ORDERS WILL COORDINATE CARE WITH DR. Hoffmann
--- NOTE | 2025-05-21 15:19 | PC.NURSE ---
KIMMIE SWANSON PTS CAREGIVER HAS QUESTIONS IN REGARDS TO HIDA SCAN AND [employer]PHEN CATHETER. TEAM C MADE AWARE.
--- NOTE | 2025-05-21 18:31 | ESPR_ITS ---
<Statement entered by Anai Slater MD - 05/22/25 22:03> Alvina is a 59-year-old female with developmental delay, bipolar disorder, diabetes, and recurrent UTIs who presented with altered mental status and was admitted for cystitis and evaluation of elevated LFTs. Urinalysis showed significant pyuria and bacteriuria, and urine culture grew ESBL-producing E. coli consistent with her history of recurrent resistant UTIs. Blood cultures remained negative after 48 hours. She received a 2-day course of meropenem for ESBL coverage and, per infectious disease recommendations, will complete therapy with a one-time dose of fosfomycin given her stable clinical course and negative blood cultures. I?ve reviewed the note and agree with the resident's assessment and plan, with the exceptions outlined above. I personally went over the labs, imaging, home medications, and prior records, and examined the patient. The case was also reviewed with the attending physician. Please note: this document was transcribed using voice recognition technology; minor inaccuracies may be present. Anai Slater DO PGY II Documentation for date of: 05/21/25 Subjective Subjective Interval history: Patient was seen and examined at bedside. No acute events took place overnight. Pt converses minimally with the provider at bedside and does not seem be cognizant of her medical condition. Patient has had soft and brown stool while inpatient per nursing records. Exam Vital Signs Temp Pulse Resp BP Pulse Ox O2 Del Method O2 Flow Rate 97.3 F 66 18 109/69 94 L Room Air 2 05/21/25 16:00 05/21/25 16:00 05/21/25 16:00 05/21/25 16:00 05/21/25 16:00 05/21/25 16:00 05/20/25 07:55 Narrative Exam General: Alert, no acute distress. Skin: Warm, dry, intact, no obvious rash. Head: Normocephalic, atraumatic. Eye: Normal conjunctiva, PERRL. Cardiovascular: Regular rate and rhythm, no murmur, +S1/S2. Respiratory: Lungs are clear to auscultation, respirations unlabored, no crackles, no wheezing. Gastrointestinal: Soft, nontender, non-distended. No guarding noted. Normotensive bowel sounds x4 quadrants. Extremities: 2+ edema in BLE to knees, no cyanosis, no clubbing. 2+ pedal pulse bilaterally. Neuro: No focal deficits observed. Limited speech, moving all extremities. No overt cerebellar signs/incoordination. Psychiatric: Cooperative, appropriate affect. Objective Labs 05/22/25 04:48 05/22/25 04:48 Labs: Laboratory Results - last 24 hr 05/21/25 04:45 WBC 5.6 RBC 4.10 Hgb 11.8 L Hct 35.6 L MCV 87 MCH 28.8 MCHC 33.1 RDW Std Deviation 40.8 Plt Count 102 L D Neut % (Auto) 44 Lymph % (Auto) 43 [place] % (Auto) 9 Eos % (Auto) 2 Baso % (Auto) 0 Neut # (Auto) 2.5 Lymph # (Auto) 2.4 [place] # (Auto) 0.5 Eos # (Auto) 0.1 Baso # (Auto) 0.0 Immature Gran # (Auto) 0.02 H Absolute Nucleated RBC 0.00 Immature Gran % 0 Nucleated RBC % 0 Sodium 142 Potassium 4.7 Chloride 108 H Carbon Dioxide 26.7 Anion Gap 7 BUN 13 Creatinine 0.8 Estim Creat Clear Calc 61.8 eGFR > 60 BUN/Creatinine Ratio 16 Glucose 180 H Calculated Osmolality 288 Calcium 8.9 Corrected Calcium 9.6 Phosphorus 3.6 Magnesium 1.3 L Total Bilirubin 0.4 AST 39 H ALT 140 H Alkaline Phosphatase 176 H D Total Protein 5.8 Albumin 3.1 L Globulin 2.7 Albumin/Globulin Ratio 1.1 L HIV 1&2 Antibody Rapid Non-Reactive ABG Interpretation ABG results: 05/18/25 10:12 VBG pH 7.33 VBG pCO2 58 H VBG pO2 33 VBG Base Excess 3 Quality Measures Quality Measures VTE prophylaxis Assessment & Plan Assessment Current Active Medications: Generic Name Dose Route Start Last Admin Trade Name Freq PRN Reason Stop Dose Admin Acetaminophen 650 mg 05/18/25 20:46 Acetaminophen 325 Mg Tablet PO 06/17/25 20:45 Q6H PRN PAIN SCALE 1-3 (mild Aspirin 81 mg 05/19/25 09:00 05/21/25 09:44 Aspirin Ec 81 Mg Tabec PO 06/18/25 08:59 81 mg QDAY SINA Administration Dextrose 25 ml 05/18/25 20:52 Dextrose 50%-Water Inj 50 Ml Syringe IV 06/17/25 20:51 Q15MIN PRN BG 50-70 responsive npo pt Dextrose 50 ml 05/18/25 20:52 Dextrose 50%-Water Inj 50 Ml Syringe IV 06/17/25 20:51 Q15MIN PRN BG <50 OR BG <70 & pt unresponsive Divalproex Sodium 1,500 mg 05/18/25 21:00 05/20/25 20:35 Divalproex Sod Ec 125 Mg Tabec PO 06/17/25 20:59 1,500 mg HS SINA Administration Glucagon 1 mg 05/18/25 20:52 Glucagon Inj 1 Mg Vial IM Q15MIN PRN BG <70, and no IV access Heparin Sodium (Porcine) 5,000 unit 05/18/25 21:00 05/21/25 09:44 Heparin Sod Inj 5000 Unit/Ml Vial SC 06/01/25 20:59 5,000 unit Q12HR SINA Administration Insulin Human Lispro 0 unit 05/20/25 06:00 05/21/25 17:43 Insulin Lispro (Admelog) 1 Unit/0.01 Ml Unit SC 06/19/25 05:59 1 unit Q6HR SINA Administration Protocol Lactulose 30 gm 05/18/25 20:46 Lactulose Syrup 20 Gm/30 Ml Udc PO 06/18/25 08:59 QDAY PRN Constipation Protocol Levothyroxine Sodium 88 mcg 05/19/25 06:00 05/21/25 05:30 Levothyroxine Sodium 88 Mcg Tablet PO 06/18/25 05:59 Not Given ACBR SINA [place] Carbonate 300 mg 05/18/25 21:00 05/20/25 20:36 [place] Carb 150 Mg Capsule PO 06/17/25 20:59 300 mg HS SINA Administration Ondansetron HCl 4 mg 05/18/25 20:46 Ondansetron Inj 2 Mg/Ml Inj 2 Ml IVP 06/17/25 20:45 Q6H PRN NAUSEA OR VOMITING Protocol Plan Plan Alvina is a 59-year-old female with PMHx of developmental delay, bipolar disorder, diabetes, and recurrent UTIs, who presented to the ED on [id number] due to altered mental status and is admitted to [facility] for management of cystitis and workup of hepatic injury as ref;ected in elevated LFT's. #Urinary tract infection #Acute encephalopathy #History of recurrent UTIs Urinalysis showed urine RBC 106, urine WBC 1099, 4+ bacteria. Patient noted to have ESBL E. coli from urine culture collected 04/30/2025. BCx negative after 48h UCx positive for E coli + Pt received 2-day course of meropenem 1g Q8h for ESBL coverage based on previous culture results. Plan ? one time fosfomycin PO 3g for remainder of therapy with negative BCx and benign course without swathi christa, per ID recs. #Liver cirrhosis #Acute on chronic transaminitis Ddx Acute acalculous cholecystitis, hepatocellular liver disease vs viral hepatitis 05/20 LFT's have trended down with T. bili of 0.5 (1.8), AST 101 (672), ALT 228 (472) alk phos 205 (236, values in ED). PT 12.8, INR 1.2 MRCP: contracted gallbladder with mild gallbladder wall thickening [with trace edema in US GB] without presence of stones. R factor of 4.7, suggesting mixed viral hepatitis and hepatocellular pattern of disease. Clinically, the patient shows no signs or symptoms of cholecystitis?she is eating well and reports no pain. Similar evaluations performed in March and early April 2025 revealed radiographic evidence of cirrhosis with mild ascites. Cirrhosis can mimic cholecystitis on imaging, but given 30% surgical mortality risk and the absence of clinical symptoms, percutaneous cholecystostomy is not warranted in this case. ? Consulted general surgery, appreciate recommendations ? Advance diet as tolerated. - DC HIDA; the scan would not change medical management per surgery. - Avoid hepatotoxins ? Tylenol 650mg PRN, no other pain medication ordered at this time due to patient not expressing pain on admission examination ? Viral hepatitis panel 03/30/25 negative. Consider autoimmune hepatitis workup #Thrombocytopenia Patient platelets 84 on admission. Patient noted to have chronic thrombocytopenia and previous visits. DDx: Hepatic disease, bone marrow suppression, medication side effect (likely due to Depakote), essential thrombocytopenia ? Will monitor with daily CBC ? Consider follow up with outpatient hematology #Pitting edema of BLE #Suspected CHF Noted on physical exam. Caregiver noted that this was not new. Follow up TTE showed mild concentric LVH with grade 1 LV diastolic dysfx. Trace TR. ? Will hold IV hydration for now #History of Hypothyroidism ? Restarted home thyroxine #Chronic constipation ? Restarted home lactulose as needed #History of type 2 diabetes mellitus HgbA1c 6.2 ([id number]) ? Started sliding scale insulin #History of bipolar disorder + Blood [place] 0.61 ? Restarted home lithium and valproic acid #History of developmental delay Patient requires caregiver and has history of developmental disorder, possibly related to maternal alcohol use. ? Will monitor for acute changes in behavior DVT Prophylaxis: Heparin (held due to thrombocytopenia) GI Prophylaxis: None Diet: carbohydrate consistent [place]: None Lines: Peripheral IV Antibiotics: Meropenem 1g Q8H Code Status: FULL Reason for Hospitalization: Acute acalculus cholecystitis and cystitis Other Barriers to Discharge: N/A This case was discussed with my attending physician, Dr. Anguiano. Vero Mata, DO PGY I Attending Provider Attestation/Addendum Patient with bipolar disorder admitted for recurrent UTI. Urine showed ESBL E. coli. The patient received fosfomycin. She is afebrile with stable blood pressure I discussed with and supervised the resident physician who took care of this patient. I agree with the assessment and plan as above.
[2025-05-21] MEDS: LITHIUM CARB 150 MG CAPSULE 300 MG PO (21:32)
[2025-05-21] MEDS: DIVALPROEX SOD EC 125 MG TABEC 1500 MG PO (21:32)
[2025-05-22] VITALS: BP 131/84; PULSE 65; PULSE 69; RESP 19; TEMP 36.1; O2SAT 95
[2025-05-22] MEDS: INSULIN LISPRO (AdmeLOG) 1 UNIT/0.01 ML UNIT SC ×3 (00:17→12:01)
[2025-05-22 04:00] VITALS: BP 126/66; PULSE 60; PULSE 61; RESP 19; TEMP 36.1; O2SAT 94
[2025-05-22] MEDS: LEVOTHYROXINE SODIUM 88 MCG TABLET PO (05:23)
[2025-05-22 05:50] LABS: Basophils # (Auto) 0.0 Thou/mm3 (0.0-0.2); Basophils % (Auto) 0 % (0-2.5); Eosinophils # (Auto) 0.1 Thou/mm3 (0.0-0.5); Eosinophils % (Auto) 2 % (0-10); Hematocrit 35.0 % (36.0-46.0); Hemoglobin 11.9 g/dL (12.0-16.0); Immature Granulocytes Auto 0.02 Thou/mm3 (0.00-0.00); Lymphocytes # (Auto) 2.8 Thou/mm3 (1.0-4.8); Lymphocytes % (Auto) 49 % (10-50); Mean Corpuscular HGB Conc 34.0 g/dl (31.0-37.0); Mean Corpuscular Hemoglobin 29.1 pg (25.0-35.0); Mean Corpuscular Volume 86 fL (80-100); Monocytes # (Auto) 0.7 Thou/mm3 (0.0-0.8); Monocytes % (Auto) 12 % (0-12); Neutrophils # (Auto) 2.1 Thou/mm3 (1.8-7.7); Neutrophils % (Auto) 37 % (37-80); Nucleated Red Blood Cell # 0.00 Thou/mm3 (0.00-0.00); Nucleated Red Blood Cell % 0 /100 WBC (0); Platelet Count 120 Thou/mm3 (140-440); RDW Standard Deviation 39.8 fL (36.4-46.3); Red Blood Count 4.09 Miln/mm3 (4.00-5.20); White Blood Count 5.7 Thou/mm3 (3.6-11.0)
[2025-05-22 06:19] LABS: Alanine Aminotransferase 99 U/L (10-49); Albumin, Serum 3.1 gm/dL (3.5-5.0); Albumin/Globulin Ratio 1.1 (1.2-2.2); Alkaline Phosphatase 158 U/L (46-116); Anion Gap 9 (7-16); Aspartate Amino Transferase 35 U/L (0-34); BUN/Creatinine Ratio 14 Ratio (12-20); Bilirubin,Total 0.4 mg/dL (0.3-1.2); Blood Urea Nitrogen 11 mg/dL (9-23); Calcium 8.8 mg/dL (8.3-10.6); Calcium (Corrected) 9.5 mg/dL (8.5-10.1); Carbon Dioxide 25.2 mMol/L (20.0-31.0); Chloride 105 mMol/L (98-107); Creatinine (Component) 0.8 mg/dL (0.6-1.3); Estimated Creatinine Clearance 61.8 mL/min (>60); Globulin 2.8 gm/dL (2.3-3.5); Glucose 217 mg/dL (74-106); Magnesium 1.5 mg/dL (1.6-2.6); Osmolality,Calculated 283 (275-295); Phosphorous 3.4 mg/dL (2.4-5.1); Potassium 4.7 mMol/L (3.4-5.1); Sodium 139 mMol/L (136-145); Total Protein 5.9 gm/dL (5.7-8.2); eGFR > 60 See Note
[2025-05-22] MEDS: ASPIRIN EC 81 MG TABEC PO (07:59)
[2025-05-22] MEDS: HEPARIN SOD INJ 5000 UNIT/ML VIAL SC (07:59)
[2025-05-22 08:00] VITALS: BP 111/75; PULSE 63; PULSE 66; RESP 17; TEMP 36.3; O2SAT 97
[2025-05-22] MEDS: MAGNESIUM OXIDE 400 MG TABLET PO (08:01)
--- NOTE | 2025-05-22 08:30 | PC.NURSE ---
PATIENT'S RIDE WILL BE PICKING HER UP AROUND NOON. DR. BREE CORDOVA.
--- NOTE | 2025-05-22 08:58 | PC.NURSE ---
DR. GIRON AT BEDSIDE TO ASSESS PT, POC DISCUSSED WITH KIMMIE SIGALA.
--- NOTE | 2025-05-22 10:52 | CHAP ---
Patient was visited by a Spiritual Care Volunteer on 05/22/2025 between 0900 and 0958 and received comfort, encouragement and/or prayer.
[2025-05-22 12:00] VITALS: BP 103/68; PULSE 69; RESP 17; TEMP 36.3; O2SAT 96
--- NOTE | 2025-05-23 16:48 | ESDS_ITS ---
Planned Discharge Date 05/23/25 DS: Providers Provider Date of admission: 05/18/25 21:24 Primary care physician: Physician No Primary/Family Admitting Provider: Vipul Tabares MD Attending Provider on Admission: Mckay Anguiano MD Consults: 05/18/25 21:05 Consult to General Surgery Stat Comment: cholecystitis Consulting Provider: Lashonda Das 05/18/25 21:06 Consult to Infectious Diseases Routine Comment: Hx of ESBL w/ new AMS Consulting Provider: Charan Salinas Attending Provider on DC: Anai Slater MD Discharging Provider: Anai Slater MD DS: Diagnosis Problem List Completed Was Problem List Reviewed/Reconciled?: Yes Hospital Course Hospital Course Hospital course: Alvina is a 59-year-old female with developmental delay, bipolar disorder, diabetes, and recurrent UTIs who presented with altered mental status and was admitted for cystitis and evaluation of elevated LFTs. Urinalysis showed significant pyuria and bacteriuria, and urine culture grew ESBL-producing E. coli consistent with her history of recurrent resistant UTIs. Blood cultures remained negative after 48 hours. She received a 2-day course of meropenem for ESBL coverage and, per infectious disease recommendations, completed therapy with a one-time dose of fosfomycin given her stable clinical course and negative blood cultures. PATIENT INSTRUCTIONS: * Follow-up with PCP within 1-2 weeks of discharge. * Recommended outpatient general surgery referral for elective cholecystectomy or if abdominal pain worsens. * Continue taking medications as prescribed below. * Return to Emergency Room if symptoms persist, worsen, or new symptoms develop. ADMISSION DIAGNOSES: #ESBL UTI #Acute encephalopathy #History of recurrent UTIs #Liver cirrhosis #Acute on chronic transaminitis #Thrombocytopenia #Pitting edema of BLE #Suspected CHF #History of Hypothyroidism #Chronic constipation #History of type 2 diabetes mellitus #History of bipolar disorder #History of developmental delay Case was discussed with attending physician. Anai Slater DO PGY II This document was transcribed using voice recognition technology. Minor inaccuracies may be present. Time Spent with Patient Time attestation: Total time spent providing and/or coordinating discharge services: Time spent: Greater than 30 minutes Exam Vital Signs Temp Pulse Resp BP Pulse Ox O2 Del Method O2 Flow Rate 97.3 F 69 17 103/68 96 Room Air 2 05/22/25 12:00 05/22/25 12:00 05/22/25 12:00 05/22/25 12:00 05/22/25 12:00 05/22/25 12:00 05/20/25 07:55 Narrative Exam General: Alert, no acute distress. Skin: Warm, dry, intact, no obvious rash. Head: Normocephalic, atraumatic. Eye: Normal conjunctiva, PERRL. Cardiovascular: Regular rate and rhythm, no murmur, +S1/S2. Respiratory: Lungs are clear to auscultation, respirations unlabored, no crackles, no wheezing. Gastrointestinal: Soft, nontender, non-distended. No guarding noted. Normotensive bowel sounds x4 quadrants. Extremities: 2+ edema in BLE to knees, no cyanosis, no clubbing. 2+ pedal pulse bilaterally. Neuro: No focal deficits observed. Limited speech, moving all extremities. No overt cerebellar signs/incoordination. Psychiatric: Cooperative, appropriate affect. Discharge Plan Plan Patient Disposition: Xfer Skilled [facility]sg Fac (SNF) Care Plan Goals: * Follow-up with PCP within 1-2 weeks of discharge. * Recommended outpatient general surgery referral for elective cholecystectomy or if abdominal pain worsens. * Continue taking medications as prescribed below. * Return to Emergency Room if symptoms persist, worsen, or new symptoms develop. Prescriptions/Referrals Prescriptions/Med Rec: Continued ASPIRIN (ASA 81MG EC) 81 MG TABLET, ENTERIC COATED 81 mg PO DAILY Qty: 0 divalproex [Depakote] 250 MG tablet,delayed release (DR/EC) 1,500 mg PO HS Qty: 0 potassium chloride [Klor-Con 8] 8 MEQ tablet extended release 8 meq PO QDAY Qty: 0 oxybutynin chloride 5 MG tablet 5 mg PO QDAY Qty: 0 lactulose [Enulose] 10 G/15 ML solution 30 g PO DAILY 30 Days Qty: 0 polyethylene glycol 3350 [Miralax] 12 EA powder in packet 1 pkt PO QDAY Qty: 0 trimethoprim 100 mg tablet 100 mg PO DAILY metformin 500 mg tablet 500 mg PO QDAY levothyroxine 88 mcg tablet 88 mcg PO QDAY lithium carbonate 300 mg capsule 300 mg PO HS docusate sodium 100 mg capsule 200 mg PO QDAY cholecalciferol (vitamin D3) [Vitamin D3] 50 mcg (2,000 unit) capsule 50 mcg PO QDAY sennosides [senna] 8.6 mg tablet 17.2 mg PO HS Patient Comments: 2 tablets acetaminophen 325 mg tablet 650 mg PO Q4H PRN (Reason: pain) Patient Comments: 2 tablets Discontinued cefuroxime axetil 500 mg tablet 500 mg PO BID Referrals: No Primary/Family,Physician [Primary Care Provider] - Patient/Caregiver Discharge Instructions Education Materials: Abdominal Pain, Infec ESBL, Anatomy of the Female Urinary Tract, Understanding Urinary Tract ... Print Language: Romansh Stand Alone Forms: Rosanna Award Info., Patient Portal Info Letter Discharge Order Discharge Orders: Discharge (Routine); Ordered 05/22/25 Ordered By: Anai Slater Quality Discharge Quality Measures VTE prophylaxis Attestestation MD Attestation I discussed with and supervised the resident physician who took care of this patient. I agree with the assessment and discharge plan as above. Follow-up with primary care provider as scheduled. Return to the emergency room for recurrent symptoms.
--- NOTE | 2025-05-24 07:29 | ESCONSULT_ITS ---
RE: PAYAL LATHAM : 1965 DATE OF CONSULTATION: 05/21/2025 REFERRING PHYSICIAN: Vipul Tabares MD REASON FOR CONSULTATION: Altered mentation, possible cholecystitis with chronic GI problems and recurrent UTIs. HISTORY OF PRESENT ILLNESS: The patient has a history of recurrent UTI but is based primarily on smelly urine. Her urinalysis was abnormal last time, but she did not stay long enough and the cultures eventually showed ESBL E. coli. She improved with supportive care and azithromycin and cefuroxime. It looks like this azithromycin course completed. Cefuroxime was completed a couple of days after her release. She did receive Rocephin initially. She was thought to have pneumonia when she was here in March. PAST MEDICAL HISTORY: Include an MRDD for which she is followed by the [facility] and Dr. Tyler Alex. PAST SURGICAL HISTORY: None noted. ALLERGIES: TYLENOL, WHICH IS UNUSUAL IT IS USUALLY USED FOR FEVER. IMMUNIZATIONS: Last tetanus was about 2 years ago. She has taken flu shot every year, has had 3 COVID vaccines and has not had pneumococcal vaccine. It has not been routine for her. FAMILY HISTORY: Unremarkable or largely unknown because the family has not been known to contact her regularly. SOCIAL HISTORY: She lives in a chcf. The homeowner is with her at the bedside today. She is to get HIDA scan today, which is reasonable. DT: 10:02:42 TT: 10:29:00 Ref: [id number] - TID: [id number] MTD
== END 2025-05-22 13:14 | disposition skilled nursing facility (03) | DRG 444 ==
LOC: SERX 21:07 → SERHOLD 21:29 → S3SX 05-20 08:05
PROVIDERS: Internal Medicine Infectious Disease; Admitting Provider Student in an Organized Health Care Education/Training Program; Emergency Provider Emergency Medicine; Visit Provider Internal Medicine
DX: K81.0 Acute cholecystitis (principal); J18.9 Pneumonia, unspecified organism; G93.49 Other encephalopathy; R18.8 Other ascites; Z16.11 Resistance to penicillins; Z16.12 Extended spectrum beta lactamase (ESBL) resistance; N30.90 Cystitis, unspecified without hematuria; E11.9 Type 2 diabetes mellitus without complications; F31.9 Bipolar disorder, unspecified; D69.6 Thrombocytopenia, unspecified; E03.9 Hypothyroidism, unspecified; K59.09 Other constipation; K74.60 Unspecified cirrhosis of liver; Z87.440 Personal history of urinary (tract) infections; B96.20 Unspecified Escherichia coli [E. coli] as the cause of diseases classified elsewhere; E87.5 Hyperkalemia; G40.909 Epilepsy, unspecified, not intractable, without status epilepticus; Z79.82 Long term (current) use of aspirin; Z79.84 Long term (current) use of oral hypoglycemic drugs; Z79.890 Hormone replacement therapy; Z79.899 Other long term (current) drug therapy; Z88.6 Allergy status to analgesic agent; Z88.0 Allergy status to penicillin; R62.50 Unspecified lack of expected normal physiological development in childhood
CPT/HCPCS: 36415; 70450; 71045; 76705; 80053; 80069; 80178; 80307; 80329; 81001; 82140; 82803; 83605; 83735; 84100; 84145; 84436; 84439; 84443; 84484; 85025; 85610; 86703; 87040; 87077; 87081; 87086; 87186; 87400; 87811; 93225; 93306; 96365; 99284; J0456; J0696; J1644; J1815; J2185; J3490; J7050; S8037; 74181; A9270; G0480; J1836